=== PATIENT | male | born 1960 | race Caucasian/White ===

== ENCOUNTER 2023-07-17 12:09 | Outpatient (OUT) | payer MEDICARE, SELFPAY ==
--- NOTE | 2023-07-17 | XR_ITS ---
The [address] [address] Patient Name: MICHAEL CHEN MRN: [id number] date: 1960 Sex: M Assigned Patient Location: [facility] Current Patient Location: [facility] Accession/Order Number: [id number] Exam Date: 07/17/2023 12:00 Report Date: 07/17/2023 15:14 At the request of: RICARDO OLIVERA Procedure: XR foot RT min 3V EXAM: XR foot RT min 3V HISTORY: RIGHT FOOT INJURY/ PAIN IN TOES OF RIGHT FOOT COMPARISON: None. TECHNIQUE: 3 views of the right foot FINDINGS: Question findings of talocalcaneal coalition, with small talar beak. No acute fracture or dislocation. Flexion of the second through fourth proximal interphalangeal joint could relate to hammertoe deformity in the appropriate clinical setting. Advanced degenerative change of the first metatarsophalangeal joint. Subcentimeter degenerative calcaneal Achilles enthesophyte. Vascular calcifications are noted. XR/XR foot RT min 3V IMPRESSION: 1. No acute osseous abnormality. 2. Flexion of the second through fourth proximal interphalangeal joints could relate to hammertoe deformity in the appropriate clinical setting. 3. Advanced degenerative change of the first metatarsophalangeal joint. Electronically authenticated by: KAY AGUILAR Date: 07/17/2023 15:14
== END 2023-07-17 12:10 | disposition home or self-care (01) ==
LOC: RAD 12:09
PROVIDERS: Visit Provider Physician Assistant
DX: M79.671 Pain in right foot (principal)
CPT/HCPCS: 73630

== ENCOUNTER 2024-10-01 10:00 | Outpatient (OUT) | payer MEDICARE, SELFPAY ==
--- NOTE | 2024-10-01 10:03 | XR_ITS ---
The [place] [id number] Patient Name: MICHAEL CHEN MRN: [id number] date: 1960 Sex: M Assigned Patient Location: [facility] Current Patient Location: [facility] Accession/Order Number: [id number] Exam Date: 10/01/2024 10:02 Report Date: 10/01/2024 12:00 At the request of: BAM FAY Procedure: XR foot VARGAS min 3V EXAMINATION: XR foot VARGAS min 3V HISTORY: Bilateral Foot Pain COMPARISON: No relevant comparison available. FINDINGS: RIGHT FINDINGS: BONES: No acute fracture or dislocation. Mild to moderate degenerative changes with joint space narrowing marginal osteophyte formation. Moderate to severe osteoarthritis first metatarsal-phalangeal joint SOFT TISSUES: Negative. No visible soft tissue swelling. OTHER: Negative. LEFT FINDINGS: BONES: No acute fracture or dislocation. Mild degenerative changes with marginal osteophyte formation. Moderate hallux valgus with mild to moderate first metatarsal-phalangeal joint osteoarthritis SOFT TISSUES: Negative. No visible soft tissue swelling. OTHER: Negative. 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
== END 2024-10-01 10:01 | disposition home or self-care (01) ==
LOC: RAD 10:00
PROVIDERS: Visit Provider Podiatrist Foot & Ankle Surgery
DX: M79.672 Pain in left foot (principal); M79.671 Pain in right foot; M19.072 Primary osteoarthritis, left ankle and foot; M19.071 Primary osteoarthritis, right ankle and foot; M20.12 Hallux valgus (acquired), left foot
CPT/HCPCS: 73630

== ENCOUNTER 2025-08-05 13:04 | Outpatient (OUT) | payer MEDICARE, SELFPAY ==
--- OUTSIDE RECORDS SUMMARY | 2024-11-17 04:15 | XMS_ITS ---
Author Organization The [facility] in [place] Address [address] [place] [address] Care Team Providers Care Ventilating Equipment Installer Name Role Phone Senthil Caba Primary Care Provider Armando Maxwell Unavailable [phone] REASON FOR VISIT RT 1st MPJ and hammertoe repairs Encounters Encounter Location Date Provider Diagnosis THE [facility] OUTPATIENT [address] [place] [phone] 11/17/2024 Armando Panda Plan Of Treatment No Information Progress Notes * Clem CHEN ADOB:[birth year] (65 yo M)Acc No.[id number]:11/17/2024 UNLOCKED PROGRESS NOTE Patient: Clem ESPOSITO Provider: Lonnie Panda DPM, MS :1960 A ge:64 Y S ex:Male Date:11/17/2024 Address:[address], [facility] Pcp:Senthil Caba * * Electronic signature of Salvador Panda DPM on 08/05/2025 at 01:13 PM EDT Sign off status: Pending Visit Status: C ANC (Cancelled) * Provider: Lonnie Panda DPM, MS Date: 0 11/17/2024 Generated for Zahraa ng/Faxing/eTransmitting on: 1 01:13 PM EDT
--- NOTE | 2025-08-05 13:13 | XR_ITS ---
The [address] [address] Patient Name: MICHAEL CHEN MRN: [id number] date: 1960 Sex: M Assigned Patient Location: [facility] Current Patient Location: Accession/Order Number: [id number] Exam Date: 08/05/2025 13:30 Report Date: 08/06/2025 00:17 At the request of: BAM FAY DPMack Procedure: XR foot VARGAS min 3V XR foot VARGAS min 3V 08/05/2025 1:41 PM SIGNS AND SYMPTOMS: Chronic bilateral foot pain PROTOCOL: Frontal, lateral, and oblique radiographs of the bilateral feet COMPARISON: 10/01/2024 FINDINGS: There is narrowing of the first metatarsophalangeal joint bilaterally, right greater than left similar to the prior exam. There is a healing obliquely aorta fracture of the right fifth metatarsal. There is a hallux valgus deformity of the left great toe which is unchanged. There is plantar and Achilles surface calcaneal spurring bilaterally. No acute displaced fracture. XR/XR foot VARGAS min 3V IMPRESSION: There is narrowing of the first metatarsophalangeal joint bilaterally, right greater than left similar to the prior exam. There is a healing obliquely aorta fracture of the right fifth metatarsal. There is a hallux valgus deformity of the left great toe which is unchanged. Impression dictated by: Shayan Pascual M.D. 08/06/2025 12:17 AM Dictation Location: [facility] Electronically authenticated by: [id number] Y Date: 08/06/2025 00:17
--- OUTSIDE RECORDS SUMMARY | 2025-08-05 13:13 | XMS_ITS | Encounter Summary ---
Author Organization [facility] Address [id number] [address] [place] [address] Care Team Providers Care Adult Education Professional Name Role Phone Senthil Caba PA-C Primary Care Provider [phone] Reason for Visit * Reason Onset Date Comments MR order 03/07/2023 Encounter Details Date Type Department Care Team (Late Contact Info) Description 03/07/2023 [facility]phone [facility] [address] [place] [address] Aicha Ponce MR order Social History Tobacco Use Types Packs/Day Years Used Date Smoking Tobacco: Former Cigarettes Q uit: 10/22/2011 Smokeless Tobacco: Never Alcohol Use Standard Drinks/Week Comments Not Currently 0 (1 standard drink = 0.6 oz pur e alcohol) been 2 weeks since drank AUDIT-C Answer Date Recorded Q1: How often do you have a drink containing alcohol? Never 08/25/2022 Q2: How many drinks containi ng alcohol do you have on a typical day when you are drinking? Patient does not drink Q3: How often do you have si x or more drinks on one occasion? Never 08/25/2022 Overall Financial Resource Strain (CARDIA) Answe r Date Recorded How hard is it for you to pa y for the very basics like food, housing, medical care, and heating? Not hard at all 08/25/2022 PHQ-2 Answer Date Recorded Total Score 10 02/16/2023 [facility] Occupat ional Health - Occupational Stress Questionnaire Answer Date Recorded Do you feel stress - tense, restless, nervous, or anxious, or unable to sleep at night because your mind is troubled all the time - these days? Rather much 08/25/2022 Exercise Vital Sign Answer Date Recorde d On average, how many days pe r week do you engage in moderate to strenuous exercise (like a brisk walk)? 3 days 08/25/2022 On average, how many minutes do you engage in exercise at this level? 20 min 08/25/2022 PRAPARE - Transportation Answer Date Re corded In the past 12 months, has l ack of transportation kept you from medical appointments or from getting medications? No 01/2022 In the past 12 months, has l ack of transportation kept you from meetings, work, or from getting things needed for daily living? No 08/25/2022 Childcare Answer Date Recorded Childcare Unknown 04/02/2019 Employment Answer Date Recorded Do you need help finding a [employer] center and/or a training program? No 08/25/2022 Purpose - Life Answer Date Recorded I have a purpose and direction in my life. Stron gly Agree 08/25/2022 Sex and Gender Information Value Date Recorded Sex Assigned at Not on file Legal Sex Male 11:57 AM EDT Gender Identity Not on file Sexual Orientation Not on file documented as of this encounter Miscellaneous Notes * Telephone Encounter - Aicha Ponce - 03/07/2023 9:35 AM EDT Arina with [facility] is asking for further directions from Dr. Metz. Dr. Metzwas the ordering physician for MR brain with and without contrast from ER visit on 02/02. Arina is confirmed because it was also transcribed from paper. Arina is asking for a return call at [phone], extension number [phone] * Telephone Encounter - Vesna Watson - 03/07/2023 9:35 AM EDT Please advise * Telephone Encounter - Yoana Metz MD - 03/07/2023 9:35 AM EDT Attempted to return call, no answer. documented in this encounter Plan of Treatment Not on file documented as of this encounter Goals Goal Patient Goal Type Associated Problems Recent Progress Patient-Stated? Author Discharge to SNF General Yes Taylor Johnson LISW Note: Evaluation of progress towards goal: Pt/SO plan for discharge to SNF SNF General Yes Carmen Mckeon, RODOLFO Note: Evaluation of progress towards goal: Patient plans to discharge to SNF and then return home with his caregiver. SNF General Yes Raul Morales Note: Evaluation of progress towards goal: [facility] Decrease the likelihood of falling Lifestyle No Kyleigh Griffith, RODOLFO Note: Below are four things you can do to prevent falls: 1. Begin an exercise program to improve your leg strength & balance 2. Ask your doctor or pharmacist to review your medicines 3. Get annual eye check-ups & update your eyeglasses 4. Make your home safer by: Removing clutter & tripping hazards Putting railings on all stairs & adding grab bars in the bathroom Having good lighting, especially on stairs Contact your local community or senior center for information on exercise, fall prevention programs, or options for improving home safety. documented as of this encounter Visit Diagnoses Not on filedocumented in this encounter Additional Health Concerns Infection Onset Date Last Indicated Resolved Time Meningitis Rule-Out 03/15/2023 03/15/2023 03/22/20 23 11:13 PM EDT Assessment Noted Time PHQ-9 Depression Total Score: 10 02/16/ 023 1:25 PM EDT documented as of this encounter Care Teams Adult Education Professional Relationship Specialty Start Date End Date Senthil Caba PA-C [address] [place] [address] PCP - General Physician Inspector Barrel 02/02/23 documented as of this encounter
--- OUTSIDE RECORDS SUMMARY | 2025-08-05 13:13 | XMS_ITS | Patient Health Record ---
Author Organization [facility] Address [address] [place] [id number] Care Team Providers Care Photo Tube Assembler Name Role Phone Marialuisa Cee Primary Care Provider Allergies Allergen (clinical drug ingredient) Drug/Non Drug Allergy documented on EMR Reaction Allergy Type Onset Date Status Penicillin nausea and vomiting Drug Allergy Active Results Component Value Reference Range Notes LIPID PANEL WITH REFLEX TO D IRECT LDL Reviewed date:03/31/2025 12:02:20 PM Interpretation: Performing Lab: Notes/Report: CHOLESTEROL 171 100-199 mg/dL TRIGLYCERIDES 48 20-149 mg/dL VLDL-CHOL, CALCULATED 10 <30 mg/dL HDL-CHOL 58 >=40 mg/dL LDL-CHOL, CALCULATED 103 <130 mg/dL ADULT LDL CHOLESTEROL CLASSIFICATION <100mg/dL Optimal 100-129mg/dL Near/Above Optimal 130-159mg/dL Borderline High >160mg/dL High Risk Desirable range <100 mg/dL for patients with CHD or diabetes and <70 mg/dL for diabetic patients with known heart disease. Direct LDL is recommended for patients with triglycerides >400. LDL/HDL 1.8 <5.0 LDL/HDL RATIO MALE FEMALE below average risk <2.3 <2.3 average risk <5.0 <4.1 moderate risk <7.1 <5.6 high risk >7.1 >5.6 CHOL/HDL 2.9 2.0-4.5 COMPREHENSIVE METABOLIC PANE L WITH GFR Reviewed date:03/31/2025 12:03:07 PM Interpretation: Performing Lab: Notes/Report: GLUCOSE 104 70-100 mg/dL BUN 7 8-23 mg/dL CALCIUM 9.1 8.6-10.5 mg/dL CREATININE, BLOOD 0.67 0.67-1.30 mg/dL eGFR (2020 CKD-EPI) 104 >59 mL/min/1.73m2 SODIUM 145 135-148 mmol/L POTASSIUM 4.6 3.5-5.4 mmol/L CHLORIDE 107 96-107 mmol/L CO2 27 18-32 mmol/L ANION GAP 11 7-16 mmol/L T. BILIRUBIN 0.4 <1.3 mg/dL ALK PHOS 115 39-118 U/L AST-SGOT 19 9-50 U/L ALT-SGPT 19 5-41 U/L T. PROTEIN 7.2 6.0-8.3 g/dL ALBUMIN 4.5 3.5-5.2 g/dL PSA, TOTAL, 3RD GENERATION ( [facility] SCREEN) Reviewed date:03/31/2025 12:02:10 PM Interpretation: Performing Lab: Notes/Report: Method: meevlas ECLIA PSA levels should not be interpreted as absolute evidence of disease, however it is widely accepted as an adjunctive test in the management of prostate cancer patients. Values obtained with different assay methods or kits can not be used interchangeably. A detectable PSA following radical prostatectomy is associated with eventual clinical disease recurrence in some, but not all patients. It may also be due to the presence of benign glands. The AUA defines biochemical recurrence as an initial PSA value >=0.2 ng/ml followed by a subsequent confirmatory PSA value >=0.2 ng/ml. UNLESS OTHERWISE INDICATED, ALL TESTING PERFORMED AT: [employer] [address] [place] [address] GRAPHIC DESIGN MANAGER: SHEILA FAUST M.D. CLIA NUMBER [id number] CAP ACCREDITATION AUID [id number] PSA, TOTAL 0.836 0-4.00 ng/mL Reason For Referral Reason left elbow pain Diagnosis 1 Left elbow pain (M25 .522) Referral Organization Main Referring Provider First Name Marialuisa Referring Provider Last Name Coleman Referring Provider Speciality Nurse Alexandro cui Referred Provider [facility] Referred Provider Specialty Orthopedics General Notes Nisreen Stewart 11:07:32 AM >{{TOFIRSTNAME}} This is [facility] following up on an outstanding referral that was ordered by your provider. Please call our office at , so we can _update our records., Sharee Grajeda 10/10/2024 11:33:31 AM >pt returned call, states no one has called him about this referral. gave pt number for referral, he is going to call them and set an appt, Nisreen Stewart 10/21/2024 09:06:49 AM >No response from patient, closing referral per protocol Referral Priority Routine Medications Medication SIG (Take, Route, Frequency, Duration) Notes Start Date End Date Status lamoTRIgine 25 MG 1 tablet Orally 3 in the morni ng and 3 at night Active Escitalopram Oxalate 20 MG 1 tablet Orally Once a day Active levETIRAcetam 1000 MG 1 tablet Orally Twice a day; Duration: 30 days 1250mg bid total Active Gabapentin 300 MG 1 capsule Orally Twice a day; Duration: 30 days 200 mg in the AM and 200 in the PM 05/30/2024 Active levETIRAcetam 250 MG 1 tablet Orally every 12 hrs; Duration: 30 days 1250mg bid total. take with 1000mg dose Active Metoprolol Tartrate 25 MG 1 tablet with food Orally Twice a day; Duration: 90 days Active Social History Tobacco Use: Social History Observation Description Date Details (start date - stop date) Former Smoker NA - NA Sex Assigned At : Social History Observation Description Sex Assigned At Male Household Question Answer Notes Number of adults in household: 1 Tobacco Use/Smoking Question Answer Notes How long has it been since you last smoked? > 10 years patient entered data When did you start smoking? 10/22/1977 miki atient entered data When did you stop smoking? 10/22/2011 tyrone bertrand entered data Tobacco use: former smoker patient enter ed data CAGE-AID Questionnaire (2018 Edition) Question Answer Notes Have you ever felt that you ought to cut down on your drinking or drug use? No patient entered data Have people annoyed you by c riticizing your drinking or drug use? No patient entered data Have you ever felt bad or gu ilty about your drinking or drug use? No patient entered data Have you ever had a drink or used drugs first thing in the morning to steady your nerves or to get rid of a hangover? No patient entered data CAGE-AID Score 0 Interpretation Negative PRAPARE Question Answer Notes Date Completed/Updated: 03/30/2025 mikie nt entered data What is your current housing situation? I have housing patient entered data Are you worried about losing your housing? No patient entered data What is the highest level of school that you have finished? High school diploma or GED patient entered data What is your current work situation? Otherwise unemployed but not seeking work (ex. student, retired, disabled, unpaid primary adult care manager) patient entered data In the past year, have you o r any family members you live with been unable to get any of the following when it was really needed? Check all that apply I do not have problems meeting my needs Has lack of transportation k ept you from medical appointments, meetings, work or from getting things needed for daily living? No How often do you see or talk to people that you care about and feel close to? (For example: talking to friends on the phone, visiting friends or family, going to [employer] or club meetings) More than 5 times a week patient entered data How stressed are you? Stress is when someone feels tense, nervous, anxious, or can't sleep at night because their mind is troubled A little bit In the past year have you sp ent more than 2 nights in a row in a chcf, intermediate, group home center, or juvenile correctional facility? No Are you a refugee? No patient en tered data What country are you from? [place] tyrone escobarnt entered data Do you feel physically and emotionally safe where you currently live? Yes patient entered data In the past year, have you b een afraid of your partner or ex-partner? No PRAPARE Score: 5 Tobacco Control (Standard) Question Answer Notes Tobacco use: Former smoker How long has it been since you last smoked? Grea ter than 10 years Problems Problem Type SNOMED Code ICD Code Onset Dates Problem Status W/U Status Risk Notes Problem Overweight (210517913) Overweight (E66.3) Active confirmed Problem Essential hypertension (26509862) Essential hypertension (I10) Active confirmed Problem Anxiety (98002162) Anxiety (F41.9) Active confirmed Problem COPD - Chronic obstructive pulmonary disease (31711010) Chronic obstructive pulmonary disease, unspecified COPD type (J44.9) Active confirmed Problem Seizure disorder (288871968) Seizure disorder (G40.909) Active confirmed Problem Neuropathy (014235373) Neuropathy (G62.9) Active confirmed Problem S/P peripheral artery angioplasty with stent placement (Z95.820) Active confirmed Vital Signs Heart Rate 65 /min 03/30/2025 Aster Triplett 03/30/2025 10:36:35 AM EDT > Temperature 98.4 degrees Fahrenheit 03/30/2025 González silvestre Aster 03/30/2025 10:36:35 AM EDT > Respiratory Rate 18 /min 03/30/2025 Tarun Triplett 03/30/2025 10:36:35 AM EDT > Oximetry 100 % 03/30/2025 Aster Triplett 03/30/2025 10:36:35 AM EDT > Blood pressure diastolic 69 mm Hg 03/30/2025 Marija maloney Aster 03/30/2025 10:36:35 AM EDT > Weight-kg 81.65 kg 03/30/2025 Aster Triplett 03/30/2025 10:36:35 AM EDT > Height 70 in 03/30/2025 Uziel Aster 03/30/2025 10:36:35 AM EDT > Blood pressure systolic 104 mm Hg 03/30/2025 González silvestre Aster 03/30/2025 10:36:35 AM EDT > Weight 180.0 lbs 03/30/2025 Uziel Aster 03/30/2025 10:36:35 AM EDT > BMI 25.82 kg/m2 03/30/2025 Aster Triplett 03/30/2025 10:36:35 AM EDT > Encounters Encounter Location Date Provider Diagnosis [facility] [address] [place] [id number] 09/25/2024 Marialuisa Cee Essential hypertensi on I10 ; Left elbow pain M25.522 ; Seizure disorder G40.909 ; Screening for prostate cancer Z12.5 ; Overweight E66.3 and Body mass index [BMI] 28.0-28.9, adult Z68.28 Main [address], [place] [id number] 03/30/2025 Marialuisa Cee Well adult exam Z00. 00 ; Overweight E66.3 ; Body mass index [BMI] 25.0-25.9, adult Z68.25 ; Screening for cardiovascular condition Z13.6 ; Screening for prostate cancer Z12.5 and Screening for colorectal cancer Z12.11 Main [address] [place] [place] [id number] 10/02/2024 Marialuisa Cee Main [address] [place] [place] [id number] 11/11/2024 Marialuisa Cee Main [address] [place] [id number] 03/31/2025 Marialuisa Cee Assessments Encounter Date Diagnosis (ICD Code) Assessment Notes Treatment Notes Treatment Clinical Notes Section Notes 09/25/2024 Essential hypertension (ICD-10 - I10) HTN stable. Will continue current medications. Encouraged healthy diet and exercise. Will order routine blood work. F/u 6 months & PRN 09/25/2024 Left elbow pain (ICD-10 - M25.522) Will make referral to Ortho per pt request for further evaluation 03/30/2025 Overweight (ICD-10 - E66.3) Body Mass Index: Care Instructions material was printed 03/30/2025 Well adult exam (ICD-10 - Z00.00) Patient presents to office today for their Annual Wellness Visit. Education was provided on healthy nutrition, including a diet rich in fruits and vegetables, minimizing simple carbohydrates, salt, and saturated fats. Encouraged regular cardiovascular exercise such as walking at least 30 minutes daily, 5 times per week. Emphasized preventive health measures and educated pt on fall prevention and community-based lifestyle interventions to help reduce health risks and promote healthy living. 03/30/2025 Body mass index [BMI] 25.0-25.9, adult (ICD-10 - Z68.25) 09/25/2024 Seizure disorder (ICD-10 - G40.909) Pt to continue to f/u with Neurology 09/25/2024 Screening for prostate cancer (ICD-10 - Z12.5) 03/30/2025 Screening for cardiovascular condition (ICD-10 - Z13.6) 03/30/2025 Screening for prostate cancer (ICD-10 - Z12.5) 09/25/2024 Overweight (ICD-10 - E66.3) 09/25/2024 Body mass index [BMI] 28.0-28.9, adult (ICD-10 - Z68.28) Body Mass Index: Care Instructions material was printed 03/30/2025 Screening for colorectal cancer (ICD-10 - Z12.11) Plan Of Treatment Next Appt Details Provider Name:Marialuisa Bolaños kalyan, 09/28/2025 11:00:00 AM, [address] [place], [place], [id number], Insurance Providers Payer Name Payer Address Payer Phone Subscriber Number Group Number Insured Name Patient Relationship to Insured Coverage Start Date Coverage End Date [employer] [address] [address] [place] [address] [id number] Clem Triplett Self - patient is the insured 4 [employer] [address] [place], [place] [id number] Clem Triplett Self - patient is the insured 4 Medical (General) History Medical History History ICD Code seizure disorder Essential hypertension I10 Surgical History Surgery Date(Month/Year) herniated disk repair Left knee arthroscopy Stent left iliac Hospitalization History Reason Date(Month/Year) seizures 09/2023 Fell @ home 2013
--- OUTSIDE RECORDS SUMMARY | 2025-08-05 13:13 | XMS_ITS | Encounter Summary ---
Author Organization [facility] [employer] [facility] tem Address [id number] [address] [place] [address] Care Team Providers Care City Manager Name Role Phone Senthil Caba PA-C Primary Care Provider [phone] Encounter Details Date Type Department Care Team (Late st Contact Info) Description 06/27/2022 Telephone [facility] [address] [place] [phone] Pratibha Campbell, RODOLFO Social History Tobacco Use Types Packs/Day Years Used Date Smoking Tobacco: Former Smokeless Tobacco: Never Alcohol Use Standard Drinks/Week Comments Not Currently 0 (1 standard drink = 0.6 oz pur e alcohol) occassionally Childcare Answer Date Recorded Childcare Unknown 04/02/2019 Employment Answer Date Recorded Employment Unknown 04/02/2019 Purpose - Life Answer Date Recorded Purpose and direction in life Unknown Sex and Gender Information Value Date Recorded Sex Assigned at Not on file Legal Sex Male 11:57 AM EDT Gender Identity Not on file Sexual Orientation Not on file COVID-19 Exposure Response Date Recorded In the last month, have you been in contact with someone who was confirmed or suspected to have Coronavirus / COVID-19? No / Unsure 06/28/2022 9:07 AM EDT documented as of this encounter Plan of Treatment Not on file documented as of this encounter Goals Goal Patient Goal Type Associated Problems Recent Progress Patient-Stated? Author Decrease the likelihood of falling Lifestyle No Kyleigh Griffith RN Note: Below are four things you can [...] on stairs Contact your local community or [facility] for information on exercise, fall prevention programs, or options for improving home safety. documented as of this encounter Visit Diagnoses Not on filedocumented in this encounter Additional Health Concerns Infection Onset Date Last Indicated Resolved Time Meningitis Rule-Out 03/15/2023 03/15/2023 03/22/20 11:13 PM EDT documented as of this encounter Care Teams City Manager Relationship Specialty Start Date End Date Senthil Caba PA-C [address] [place] [address] PCP - General Physician Systems Spec 02/02/23 documented as of this encounter
--- OUTSIDE RECORDS SUMMARY | 2025-08-05 13:13 | XMS_ITS | Encounter Summary ---
Author Organization [facility] tem Address [id number] [address] 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 No 08/25/2022 Purpose - Life Answer Date Recorded I have a purpose and direction in my life. Stron gly Agree 08/25/2022 Sex and Gender Information Value Date Recorded Sex Assigned at Not on file Legal Sex Male 11:57 AM EDT Gender Identity Not on file Sexual Orientation Not on file documented as of this encounter Plan of Treatment Not on file documented as of this encounter Goals Goal Patient Goal Type Associated Problems Recent Progress Patient-Stated? Author Discharge to SNF General Yes Taylor Johnson LISW Note: Evaluation of progress towards goal: Pt/SO plan for discharge to SNF SNF General Yes Carmen Mckeon, RN Note: Evaluation of progress towards goal: Patient plans to discharge to SNF and then return home with his caregiver. SNF General Yes Raul Morales Note: Evaluation of progress towards goal: DC to [facility] Decrease the likelihood of falling Lifestyle No Kyleigh Griffith, RN Note: Below are four things you [...] home safety. documented as of this encounter Procedures Procedure Name Priority Date/Time Associated Diagnosis Comments TOTAL PROTEIN ON CSF Routine 03/15/2023 2:33 PM EDT Abnormal finding on MRI of brain UNLISTED LAB TEST Routine 03/15/2023 2:3 3 PM EDT Abnormal finding on MRI of brain GENERIC SEND OUT LAB USE ONLY Routine 03/15/2023 2:33 PM EDT IGG SYNTHESIS CSF AND SERUM Routine 03/15/2023 2:33 PM EDT Abnormal finding on MRI of brain OLIGOCLONAL BANDING CSF & SERUM Routine 03/15/2023 2:33 PM EDT Abnormal finding on MRI of brain GLUCOSE, CSF Routine 03/15/2023 2:33 PM EDT Abnormal finding on MRI of brain documented in this encounter Results * Generic Send Out Lab Use Only (03/15/2023 2:33 PM EDT) Test name ENC2 03/15/2023 8:53 PM EDT [employer] Test result SEE COMMENTS 03/23/2023 09:10 AM 03/23/2023 10:10 AM EDT [facility] Comment: NOTE Test Result Flag Unit RefValue Enceph, Autoimm/Paraneo, CSF Encephalopathy, Interpretation, See Note CSF No informative autoantibodies were detected in this evaluation. However, a negative result does not exclude autoimmune encephalopathy, idiopathic or paraneoplastic. Sensitivity and specificity of antibody testing are enhanced by testing both serum and CSF. IFA Notes None. AMPA-R Ab CBA, CSF Negative Negative ADDITIONAL INFORMATION This test was developed and its performance characteristics determined by [facility] in a manner consistent with CLIA requirements. This test has not been cleared or approved by the U.S. Food and Drug Administration. Amphiphysin Ab, CSF Negative Negative ADDITIONAL INFORMATION This test was developed and its performance characteristics determined by [facility] in a manner consistent with CLIA requirements. This test has not been cleared or approved by the U.S. Food and Drug Administration. AGNA-1, CSF Negative Negative ADDITIONAL INFORMATION This test was developed and its performance characteristics determined by [facility] in a manner consistent with CLIA requirements. This test has not been cleared or approved by the U.S. Food and Drug Administration. REINIER-1, CSF Negative Negative ADDITIONAL INFORMATION This test was developed and its performance characteristics determined by [facility] in a manner consistent with CLIA requirements. This test has not been cleared or approved by the U.S. Food and Drug Administration. REINIER-2, CSF Negative Negative ADDITIONAL INFORMATION This test was developed and its performance characteristics determined by [facility] in a manner consistent with CLIA requirements. This test has not been cleared or approved by the U.S. Food and Drug Administration. REINIER-3, CSF Negative Negative ADDITIONAL INFORMATION This test was developed and its performance characteristics determined by [facility] in a manner consistent with CLIA requirements. This test has not been cleared or approved by the U.S. Food and Drug Administration. CASPR2-IgG CBA, CSF Negative Negative ADDITIONAL INFORMATION This test was developed and its performance characteristics determined by [facility] in a manner consistent with CLIA requirements. This test has not been cleared or approved by the U.S. Food and Drug Administration. CRMP-5-IgG, CSF Negative Negative ADDITIONAL INFORMATION This test was developed and its performance characteristics determined by [facility] in a manner consistent with CLIA requirements. This test has not been cleared or approved by the U.S. Food and Drug Administration. DPPX Ab IFA, CSF Negative Negative ADDITIONAL INFORMATION This test was developed and its performance characteristics determined by [facility] in a manner consistent with CLIA requirements. This test has not been cleared or approved by the U.S. Food and Drug Administration. BLAKE-B-R Ab CBA, CSF Negative Negative ADDITIONAL INFORMATION This test was developed and its performance characteristics determined by [facility] in a manner consistent with CLIA requirements. This test has not been cleared or approved by the U.S. Food and Drug Administration. GAD65 Ab Assay, CSF 0.00 nmol/L <= 0.02 ADDITIONAL INFORMATION This test was developed and its performance characteristics determined by [facility] in a manner consistent with CLIA requirements. This test has not been cleared or approved by the U.S. Food and Drug Administration. GFAP IFA, CSF Negative Negative ADDITIONAL INFORMATION This test was developed and its performance characteristics determined by [facility] in a manner consistent with CLIA requirements. This test has not been cleared or approved by the U.S. Food and Drug Administration. IgLON5 IFA, CSF Negative Negative ADDITIONAL INFORMATION This test was developed and its performance characteristics determined by [facility] in a manner consistent with CLIA requirements. This test has not been cleared or approved by the U.S. Food and Drug Administration. LGI1-IgG CBA, CSF Negative Negative ADDITIONAL INFORMATION This test was developed and its performance characteristics determined by [facility] in a manner consistent with CLIA requirements. This test has not been cleared or approved by the U.S. Food and Drug Administration. mGluR1 Ab IFA, CSF Negative Negative ADDITIONAL INFORMATION This test was developed and its performance characteristics determined by [facility] in a manner consistent with CLIA requirements. This test has not been cleared or approved by the U.S. Food and Drug Administration. Neurochondrin IFA, CSF Negative Negative ADDITIONAL INFORMATION This test was developed and its performance characteristics determined by [facility] in a manner consistent with CLIA requirements. This test has not been cleared or approved by the U.S. Food and Drug Administration. NIF IFA, CSF Negative Negative ADDITIONAL INFORMATION This test was developed and its performance characteristics determined by [facility] in a manner consistent with CLIA requirements. This test has not been cleared or approved by the U.S. Food and Drug Administration. NMDA-R Ab CBA, CSF Negative Negative ADDITIONAL INFORMATION This test was developed and its performance characteristics determined by [facility] in a manner consistent with CLIA requirements. This test has not been cleared or approved by the U.S. Food and Drug Administration. MATTRESS PACKER-Tr, CSF Negative Negative ADDITIONAL INFORMATION This test was developed and its performance characteristics determined by [facility] in a manner consistent with CLIA requirements. This test has not been cleared or approved by the U.S. Food and Drug Administration. MATTRESS PACKER-1, CSF Negative Negative ADDITIONAL INFORMATION This test was developed and its performance characteristics determined by [facility] in a manner consistent with CLIA requirements. This test has not been cleared or approved by the U.S. Food and Drug Administration. MATTRESS PACKER-2, CSF Negative Negative ADDITIONAL INFORMATION This test was developed and its performance characteristics determined by [facility] in a manner consistent with CLIA requirements. This test has not been cleared or approved by the U.S. Food and Drug Administration. Septin-7 IFA, CSF Negative Negative ADDITIONAL INFORMATION This test was developed and its performance characteristics determined by [facility] in a manner consistent with CLIA requirements. This test has not been cleared or approved by the U.S. Food and Drug Administration. Test Performed by: [facility] - [address] [address] Campaign Advisor: Amilcar Wilson M.D. Ph.D.; IA# [id number] MISCELLANEOUS 03/15/2023 2:3 3 PM EDT 03/15/2023 6:01 PM EDT us Yoana Metz MD LAB ORDERABLES Final Resu lt Performing Organization Address [facility] [place] [address] * Unlisted Lab Test(Not for Covid-19 Testing), (03/15/2023 2:33 PM EDT) Unlisted lab test Sent to reference lab 03/15/2023 9:14 PM EDT [facility] MISCELLANEOUS 03/15/2023 2:3 3 PM EDT 03/15/2023 6:01 PM EDT us Yoana Metz MD LAB BLOOD ORDERABLES Final Result Performing Organization Address [facility] Co de Phone Number [facility] * Glucose, CSF (03/15/2023 2:33 PM EDT) Glucose, CSF 67 40 - 70 mg/dL 03/15/2023 3:13 PM EDT [facility] Cerebrospinal fluid / Unknown 03/15/2023 2:33 PM EDT 03/15/2023 2:55 PM EDT us Yoana Metz MD BODY FLUIDS AND STOOLS ORD ERABLES Final Result Performing Organization Address [facility] Co de Phone Number [address] [address] * (ABNORMAL) Csf total protein (03/15/2023 2:33 PM EDT) Protein, CSF 80(H) 15 - 45 mg/dL 03/15/2023 3:21 PM EDT [facility] Cerebrospinal fluid / Unknown 03/15/2023 2:33 PM EDT 03/15/2023 2:55 PM EDT Yoana Metz MD BODY FLUIDS AND STOOLS ORD ERABLES Final Result Performing Organization Address [facility]/ZIP Co de Phone Number [address] [address] * IGG synthesis CSF and serum (03/15/2023 2:33 PM EDT) IGG synthesis See Below 03/16/2023 2:17 PM EDT [facility] Comment: NOTE TEST RESULT FLAG UNIT REF.RANGE Immunoglobulin G, CSF 6.2 H mg/dL 1.0-3.0 Albumin, CSF 25.5 mg/dL 10.0-30.0 IgG/Albumin Ratio 0.24 H 0.06-0.17 ENDOCRINOLOGY NURSE IGG Synthesis 2.4 mg/day 0.0-3.0 IGG Index 0.60 0.00-0.61 Serum IgG 1504 mg/dL 700-1600 Albumin, Serum 3700 L mg/dL [id number] Test Performed By: [facility] [address] [place] [address] Grinding Wheel Inspector: Chavo Nair III, M.D. TIANA #[id number]^ MISCELLANEOUS 03/15/2023 2:3 3 PM EDT 03/15/2023 5:56 PM EDT Yoana Metz MD LAB BLOOD ORDERABLES Final Result Performing Organization Address [facility]/ZIP Co de Phone Number [address] [address] * Oligoclonal Banding CSF & Serum (03/15/2023 2:33 PM EDT) Serum Bands Olig 3 bands 03/21/20 2:23 PM EDT [facility] CSF Bands Olig 3 bands 03/21/2023 2:23 PM EDT [facility] CSF OLIG BANDS INTERP 0 <2 bands 03/21/2023 2:23 PM EDT [facility] Comment: NOTE The oligoclonal band assay detected no unique IgG bands in the CSF. This is a negative result. Test Performed by: [facility] [address] [place] [address] Campaign Advisor: Amilcar Wilson M.D. 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
--- OUTSIDE RECORDS SUMMARY | 2025-08-05 13:13 | XMS_ITS | Encounter Summary ---
Author Organization [facility] [employer] [facility] [place] tem Address [id number] [address] [place] [address] Care Team Providers Care Development Coach Name Role Phone Senthil Caba PA-C Primary Care Provider [phone] Encounter Details Date Type Department Care Team (Late st Contact Info) Description 07/18/2022 Telephone [facility] [address] [place] [phone] Pratibha Campbell, RODOLFO Social History Tobacco Use [...] have Coronavirus / COVID-19? No / Unsure 07/12/2022 9:56 AM EDT documented as of this encounter [...] on stairs Contact your local community or [facility] for information on exercise, fall prevention programs, or options for improving home safety. documented as of this encounter Visit Diagnoses Not on filedocumented in this encounter Additional Health Concerns Infection Onset Date Last Indicated Resolved Time Meningitis Rule-Out 03/15/2023 03/15/2023 03/22/20 11:13 PM EDT documented as of this encounter Care Teams Development Coach Relationship Specialty Start Date End Date Senthil Caba PA-C [address] [place] [address] PCP - General Physician Gravel Inspector 02/02/23 documented as of this encounter
--- OUTSIDE RECORDS SUMMARY | 2025-08-05 13:13 | XMS_ITS | Encounter Summary ---
Author Organization [employer] [facility] tem Address [id number] [address] [place] [address] Care Team Providers Care Newspaper Editor Managing Name Role Phone Senthil Caba PA-C Primary Care Provider [phone] Encounter Details Date Type Department Care Team (Late st Contact Info) Description 08/21/2023 Abstract [facility] - Medical Oncology [address] [place] [address] Jose D Hunter MD [facility] [address] [place] [address] Social History Tobacco Use Types Packs/Day Years Used Date Smoking Tobacco: Former Cigarettes Q uit: 10/22/2011 Smokeless Tobacco: Never Alcohol Use Standard Drinks/Week Comments Not Currently 0 (1 standard drink = 0.6 oz pur e alcohol) 01/2023 AUDIT-C Answer Date Recorded Q1: How often [...] Answer Date Recorded Total Score 10 02/16/2023 [facility] of Occupat ional Health - Occupational Stress [...] Recorded Do you need help finding a [employer] center and/or a training program? No 08/25/2022 Hunger Screening Answer Date Recorded Within the past 12 months we worried whether our food would run out before we got money to buy more. Never True 07/05/2023 Within the past 12 months th e food we bought just didn't last and we didn't have money to get more. Never True 07/05/2023 Purpose - Life Answer Date Recorded I [...] goal: Pt/SO plan for discharge to SNF [facility] General Yes Carmen Mckeon, RN Note: Evaluation of progress towards goal: Patient plans to discharge to SNF and then return home with his caregiver. SNF General Yes Raul Morales Note: Evaluation of progress towards goal: DC to [place] [facility] Decrease the likelihood of falling Lifestyle No [...] on stairs Contact your local community or [facility] for information on exercise, fall prevention programs, or options for improving home safety. documented as of this encounter Procedures Procedure Name Priority Date/Time Associated Diagnosis Comments MULTIPLE LABS Routine 08/15/2023 documented in this encounter Results * Multiple labs (08/15/2023) 08/15/2023 us Not In System Ref Prov [facility] Final Res ult documented in this encounter Visit Diagnoses Not on filedocumented in this encounter Additional Health Concerns Assessment Noted Time PHQ-9 Depression Total Score: 10 02/16/ 023 1:25 PM EDT documented as of this encounter Care Teams Newspaper Editor Managing Relationship Specialty Start Date End Date Senthil Caba PA-C [address] [place] [address] PCP - General Physician Frame Table Operator Helper 02/02/23 documented as of this encounter
--- OUTSIDE RECORDS SUMMARY | 2025-08-05 13:13 | XMS_ITS | Encounter Summary ---
Author Organization [facility] Address [address] [facility] [place] [address] Care Team Providers Care Licensed Practical Vocational Nurse Name Role Phone Senthil Caba Unavailable Marialuisa Cee MD Unavailable [phone] Clem Martinez MD Primary Care Provider Anila Victoria Unavailable Encounter Details Date Type Department Care Team (Late st Contact Info) Description 07/24/2023 Abstract [facility] [address] [facility] [address] [place] [address] Beka Johnson MD [address] [facility] [address] [place] [address] Social History Tobacco Use Types Packs/Day Years Used Date Smoking Tobacco: Former Cigarettes Alcohol Use Standard Drinks/Week Comments Not Currently 0 (1 standard drink = 0.6 oz pure alcohol) caffeine intake: more than 4 cups per day. Sex and Gender Information Value Date Recorded Sex Assigned at Not on file Legal Sex Male 7:05 PM EDT Gender Identity Not on file Sexual Orientation Not on file documented as of this encounter Plan of Treatment Not on file documented as of this encounter Visit Diagnoses Not on filedocumented in this encounter Care Teams Licensed Practical Vocational Nurse Relationship Specialty Start Date End Date Clem Martinez MD [address] [facility] [place], [place] [id number] PCP - General Family Medicine 09/11/24 Senthil Caba PA [address] [place] [address] Referring Physician Physical Medicine and Rehabilitation 07/02/23 Marialuisa Cee MD [address] [place] [address] Referring Physician Family Medicine 08/13/24 Anila Victoria PA [address] [place] [address] Physician Director [facility] 02/09/25 documented as of this encounter
--- OUTSIDE RECORDS SUMMARY | 2025-08-05 13:13 | XMS_ITS | Encounter Summary ---
Author Organization [facility] [employer] [facility] tem Address [id number] [address] [place] [address] Care Team Providers Care Nut And Bolt Assembler Name Role Phone Senthil Caba PA-C Primary Care Provider [phone] Encounter Details Date Type Department Care Team (Late st Contact Info) Description 06/20/2022 Telephone [facility] [address] [place] [phone] Pratibha Campbell, RODOLFO Social History Tobacco Use [...] or suspected to have Coronavirus / COVID-19? Unable to assess 05/24/2022 10:11 AM EDT documented as of this encounter Plan of Treatment Not on file documented as of this encounter Goals Goal Patient Goal Type Associated Problems Recent Progress Patient-Stated? Author Decrease the likelihood of falling Lifestyle Kyleigh Pineda RN Note: Below are four things you [...] on stairs Contact your local community or [facility] for information on exercise, fall prevention programs, or options for improving home safety. documented as of this encounter Visit Diagnoses Not on filedocumented in this encounter Additional Health Concerns Infection Onset Date Last Indicated Resolved Time Meningitis Rule-Out 03/15/2023 03/15/2023 03/22/20 11:13 PM EDT documented as of this encounter Care Teams Nut And Bolt Assembler Relationship Specialty Start Date End Date Senthil Caba PA-C [address] [place] [address] PCP - General Physician Bear Keeper 02/02/23 documented as of this encounter
--- OUTSIDE RECORDS SUMMARY | 2025-08-05 13:13 | XMS_ITS | Clinical Summary ---
Author Organization [facility] Address [address] [place] [address] Care Team Providers Care Carpet Installation Specialist Name Role Phone Unavailable Primary Care Provider Unavailabl e Social History Tobacco Use Types Packs/Day Years Used Date Smoking Tobacco: Never Assessed [place] Safety & Environment Answer Date Rec orded Fear of Current or Ex-Partner Not on file Emotionally Abused Not on file 12/13/2023 Physically Abused Not on file 12/13/2023 Sexually Abused Not on file 12/13/2023 Physically or Sexually Abused Not on file Sex and Gender Information Value Date Recorded Sex Assigned at Not on file Legal Sex Male 10:12 PM EDT Gender Identity Not on file Sexual Orientation Not on file Last Filed Vital Signs Vital Sign Reading Time Taken Comments Blood Pressure 119/75 02/16/2021 2:08 PM EDT Pulse 88 02/16/2021 2:08 PM EDT Temperature - - Respiratory Rate - - Oxygen Saturation 97% 02/16/2021 2:08 PM EDT Inhaled Oxygen Concentration - - Weight 97.5 kg (215 lb) 02/16/2021 2:05 PM EDT Height 175.3 cm (5' 9 ) 02/16/2021 2:05 PM EDT Body Mass Index 31.75 02/16/2021 2:05 PM EDT Plan of Treatment Not on file
--- OUTSIDE RECORDS SUMMARY | 2025-08-05 13:13 | XMS_ITS | Encounter Summary ---
Author Organization [facility] [employer] [facility] tem Address [id number] [address] [place] [address] Care Team Providers Care Talent Management Manager Name Role Phone Senthil Caba PA-C Primary Care Provider [phone] Encounter Details Date Type Department Care Team (Late st Contact Info) Description 06/13/2022 Telephone [facility] [address] [place] [phone] Pratibha Campbell, RODOLFO Social History Tobacco Use [...] on stairs Contact your local community or [facility] for information on exercise, fall prevention programs, or options for improving home safety. documented as of this encounter Visit Diagnoses Not on filedocumented in this encounter Additional Health Concerns Infection Onset Date Last Indicated Resolved Time Meningitis Rule-Out 03/15/2023 03/15/2023 03/22/20 11:13 PM EDT documented as of this encounter Care Teams Talent Management Manager Relationship Specialty Start Date End Date Senthil Caba PA-C [address] [place] [address] PCP - General Physician Washing Tub Operator 02/02/23 documented as of this encounter
--- OUTSIDE RECORDS SUMMARY | 2025-08-05 13:13 | XMS_ITS | Patient Health Record ---
Author Organization [facility] Address [address] [place] [address] Care Team Providers Care Digital Press Operator Name Role Phone Senthil Caba Primary Care Provider Bam [facility] [phone] Allergies Allergen (clinical drug ingredient) Drug/Non Drug Allergy documented on EMR Reaction Allergy Type Onset Date Status Penicillin Unknown Drug Allergy Active Results Component Value Reference Range Notes XR Foot RT (3 views) * Reviewed date:10/20/2024 01:15:14 PM Interpretation: Performing Lab: Notes/Report: XR foot VARGAS min 3V (Not yet reviewed by provider) Interpretation: Performing Lab: Notes/Report: Source Facility: [place] [address] XRay Report Signed Patient: Michael Chen MR#: [id number] : 1960 Acct:[id number] Age/Sex: 64 / M ADM Date: 10/01/24 Loc: RAD Attending Dr: Bam Panda D.P.M. Ordering Physician: Bam Panda D.P.M. Date of Service: 10/01/24 Procedure(s): XR foot VARGAS min 3V Accession Number(s): [id number] cc: Bam Panda D.P.M.; Physician,Non-Staff Julio Cesar The [place] [address] Patient Name: MICHAEL CHEN MRN: [id number] date: 1960 Sex: M Assigned Patient Location: RAD Current Patient Location: RAD Accession/Order Number: [id number] Exam Date: 10/01/2024 10:02 Report Date: 10/01/2024 12:00 At the request of: BAM PANDA Procedure: XR foot VARGAS min 3V EXAMINATION: XR foot VARGAS min 3V HISTORY: Bilateral Foot Pain COMPARISON: No relevant comparison available. FINDINGS: RIGHT FINDINGS: BONES: No acute fracture or dislocation. Mild to moderate degenerative changes with joint space narrowing marginal osteophyte formation. Moderate to severe osteoarthritis first metatarsal-phalangeal joint SOFT TISSUES: Negative. No visible soft tissue swelling. OTHER: Negative. LEFT FINDINGS: BONES: No acute fracture or dislocation. Mild degenerative changes with marginal osteophyte formation. Moderate hallux valgus with mild to moderate first metatarsal-phalangeal joint osteoarthritis SOFT TISSUES: Negative. No visible soft tissue swelling. OTHER: Negative. 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 Signed By: 10/01/24 1203 DD/ 1200 TD/TT: Medicaid Eligibility Specialist: Reason For Referral No Information Medications Medication SIG (Take, Route, Frequency, Duration) Notes Start Date End Date Status DULoxetine HCl Activ e traZODone HCl 50 MG 1 tablet at bedtime as needed Orally Once a day Active Calcium Carbonate 600 MG 1 tablet with f ood Orally Twice a day Active Ondansetron Active Furosemide Active Tylenol Active Iron (Ferrous Sulfate) Active Vitamin B12 1000 MCG 1 tablet Orally Onc e a day Active levETIRAcetam 250 MG 1 tablet Orally slick ry 12 hrs Active Vitamin D3 50 MCG (2000 UT) 1 capsule Or ally Once a day Active levETIRAcetam 1000 MG 1 tablet on the to ngue and allow to dissolve Orally Twice a day Active Gabapentin 100 MG Oral; Duration: 90 Days Active Magnesium Oxide 400 MG 1 tablet as neede d Orally Once a day Active Metoprolol Tartrate 25 MG 1 tablet with food Orally Twice a day Active [place] 3 Active Omeprazole Active Social History Tobacco Use: Social History Observation Description Date Details (start date - stop date) Former Smoker NA - 07/05/2012 Tobacco Use/Smoking Question Answer Notes Patient is a former smoker When did you stop smoking? 07/05/2012 Alcohol Screen (Audit-C) Question Answer Notes Did you have a drink containing alcohol in the p ast year? No Points 0 Interpretation Negative Problems Problem Type SNOMED Code ICD Code Onset Dates Problem Status W/U Status Risk Notes Problem Peripheral vascular disease (773905614) Peripheral vascular disease, unspecified (I73.9) Active confirmed Problem Acquired hallux valgus (81138318) Hallux valgus (acquired), left foot (M20.12) Active confirmed Problem Acquired hallux rigidus (9597315) Hallux rigidus, right foot (M20.21) Active confirmed Problem Acquired hammer toe of right foot (989110995848229 5) Other hammer toe(s) (acquired), right foot (M20.41) Active confirmed Problem Pain in right foot (859273403870905 ) Right foot pain (M79.671) Active confirmed Problem Pain in left foot (045757172676121 ) Left foot pain (M79.672) Active confirmed Problem Secondary hypertension (50305999) Hypertension, secondary (I15.9) Active confirmed Vital Signs Heart Rate 72 /min 10/01/2024 Temperature 98 degrees Fahrenheit 10/01/2024 Oximetry 98 % 10/01/2024 Height 71 in 10/01/2024 Weight 221 lbs 10/01/2024 BMI 30.82 kg/m2 10/01/2024 Procedures Procedure Date Ordered Date Performed Result Body Sit e DELIA Segmental Pressure Study of Lower Extremity 10/01/2024 N/A Encounters Encounter Location Date Provider Diagnosis [facility] [address] [place] [address] [place] [address] 02/16/2025 Bam Panda [facility] [address] [place] [address] [place] [address] 10/01/2024 Bam Panda Hallux rigidus, right foot M20.21 ; Other hammer toe(s) (acquired), right foot M20.41 ; Other deformities of toe(s) (acquired), right foot M20.5X1 ; Right foot pain M79.671 ; Hallux valgus (acquired), left foot M20.12 ; Left foot pain M79.672 and Peripheral vascular disease, unspecified I73.9 Assessments Encounter Date Diagnosis (ICD Code) Assessment Notes Treatment Notes Treatment Clinical Notes Section Notes 10/01/2024 Hallux rigidus, right foot (ICD-10 - M20.21) Patient was seen and evaluated. Patient's condition was provided and all questions were answered to satisfaction. I reviewed x-rays and physical exam findings. Pain and dysfunction has affected patient's daily life and although he does have back and knee pain as well he is able to only walk a few steps secondary to pain therefore for longer distances he uses a motorized scooter. Patient quit smoking 12 years ago and does have a history of a stent in his left leg. He previously was on Plavix which was discontinued by his PCP roughly a year ago. Patient would like to undergo reconstructive surgery and I recommended: Right first metatarsal phalangeal joint fusion with correction of lesser toe deformities, bone graft and soft tissue balancing as needed I reviewed the possible complications which include but not limited to infection, wound healing issue, numbness and tingling, bleeding, blood clot, pain, need for additional surgery.Other possible complications include malunion, nonunion, delayed union and painful hardware. I discussed that he is at notably high risk for wound given his smoking history therefore I recommended noninvasive vascular studies prior to surgery as part of the preoperative clearance. It is likely that at minimum he has small vessel disease and due to these very rigid severe lesser toe contractures and is at high risk for toe loss following surgery Postoperative course was reviewed and the patient will likely be: Nonweightbearing for 1 week followed by partial protected weightbearing for an additional 6 to 8 weeks Patient will be: outpatient postoperatively Proposed anesthesia: General And regional Proposed implants: Medline Patient may require pinning with K wires for his lesser toe contractures given their severity 10/01/2024 Other hammer toe(s) (acquired), right foot (ICD-10 - M20.41) 10/01/2024 Other deformities of toe(s) (acquired), right foot (ICD-10 - M20.5X1) 10/01/2024 Right foot pain (ICD-10 - M79.671) 10/01/2024 Hallux valgus (acquired), left foot (ICD-10 - M20.12) 10/01/2024 Left foot pain (ICD-10 - M79.672) 10/01/2024 Peripheral vascular disease, unspecified (ICD-10 - I73.9) Plan Of Treatment Pending Test Test Name Order Date XR Foot LT (3 views) * 10/01/2024 XR foot VARGAS min 3V 10/01/2024 DELIA Segmental Pressure Study of Lower Ex tremity 10/01/2024 Insurance Providers Payer Name Payer Address Payer Phone Subscriber Number Group Number Insured Name Patient Relationship to Insured Coverage Start Date Coverage End Date [employer] ADV PLAN [address] [address] [place] [address] [phone] [id number] Michael Chen Self - patient is the insured Medical (General) History Medical History History ICD Code Hepatic encephalopathy K76.82 Seizures Abnormal finding on right foot Arthritis Surgical History Surgery Date(Month/Year) Left knee x2 Dr. Espino
--- OUTSIDE RECORDS SUMMARY | 2025-08-05 13:13 | XMS_ITS | Encounter Summary ---
Author Organization [facility] Address [address] [facility] [place] [address] Care Team Providers Care Spray Blender Name Role Phone Senthil Caba Unavailable Marialuisa Cee MD Unavailable [phone] Clem Martinez MD Primary Care Provider [phone] Anila Victoria Unavailable Encounter Details Date Type Department Care Team (Late st Contact Info) Description 07/02/2023 Abstract [facility] [address] [place] [id number] Fidel Negrete, OSMAR [address] [facility] [place] [phone] Social History Tobacco Use Types Packs/Day Years Used Date Smoking Tobacco: Former Cigarettes Tobacco Cessation:Counseling Given: Not Answered Alcohol Use Standard Drinks/Week Comments Not Currently [...] on filedocumented in this encounter Care Teams Spray Blender Relationship Specialty Start Date End Date Clem Martinez MD [facility] [place], [place] [phone] PCP - General Family Medicine 09/11/24 Senthil Caba PA [address] [place] [address] Referring Physician Physical Medicine and Rehabilitation 07/02/23 Marialuisa Cee MD [address] [place] [address] Referring Physician Family Medicine 08/13/24 Anila Victoria PA [address] [place] [address] Physician Stone Trimmer Neurology 02/09/25 documented as of this encounter
--- OUTSIDE RECORDS SUMMARY | 2025-08-05 13:13 | XMS_ITS | Encounter Summary ---
Author Organization [facility] [employer] [facility] tem Address [id number] [address] [place] [address] Care Team Providers Care Windows Systems Engineer Name Role Phone Senthil Caba PA-C Primary Care Provider [phone] Encounter Details Date Type Department Care Team (Late st Contact Info) Description 07/11/[address] [facility] [address] [place] [phone] Pratibha Campbell, RODOLFO Social History Tobacco Use [...] on stairs Contact your local community or [facility] for information on exercise, fall prevention programs, or options for improving home safety. documented as of this encounter Visit Diagnoses Not on filedocumented in this encounter Additional Health Concerns Infection Onset Date Last Indicated Resolved Time Meningitis Rule-Out 03/15/2023 03/15/2023 03/22/20 11:13 PM EDT documented as of this encounter Care Teams Windows Systems Engineer Relationship Specialty Start Date End Date Senthil Caba PA-C [address] [place] [address] PCP - General Physician Casket Coverer 02/02/23 documented as of this encounter
--- OUTSIDE RECORDS SUMMARY | 2025-08-05 13:14 | XMS_ITS | Clinical Summary ---
Author Organization [facility] Address [id number] [address] [place] [address] Care Team Providers Care Billing Associate Name Role Phone Senthil Caba PA-C Primary Care Provider Allergies Active Allergy Reactions Criticality Noted Date Comments Latex Rash Low 08/25/2022 Nickel Other (See Comments) 08/25/2022 Penicillins Rash Low 07/27/2018 Medications clopidogreL (PLAVIX) 75 mg tablet Take 1 tablet (75 mg total) by mouth in the morning. Active thiamine HCl (vitamin B-1) 100 mg tablet Take 1 tablet (100 mg total) by mouth in the morning. Active cyanocobalamin (vitamin B-12) 1000 MCG tablet Take 1 tablet (1,000 mcg total) by mouth in the morning. Active CALCIUM CARBONATE-VITAMI N D3 ORAL Take 1 capsule by mouth in the morning. 1200mg-25mcg . Active DULoxetine (CYMBALTA) 60 mg capsule Take 1 capsule (60 mg total) by mouth in the morning. Active gabapentin (NEURONTIN) 400 mg capsuleIndicatio ns:Polyneuropath y, unspecified Take 1 capsule (400 mg total) by mouth in the morning and 1 capsule (400 mg total) before bedtime. 10 capsule 02/26/2023 Active levETIRAcetam (KEPPRA) 250 mg tablet Take 5 tablets (1,250 mg total) by mouth in the morning and 5 tablets (1,250 mg total) before bedtime. 60 tablet 02/26/2023 Active metoprolol tartrate (LOPRESSOR) 25 mg tablet Take 1 tablet (25 mg total) by mouth in the morning and 1 tablet (25 mg total) before bedtime. 60 tablet 02/26/2023 Active folic acid (FOLVITE) 1 mg tablet Take 1 tablet (1 mg total) by mouth in the morning. 30 tablet 02/26/2023 Active magnesium oxide (MAGOX) 400 mg tablet Take 1 tablet (400 mg total) by mouth in the morning and 1 tablet (400 mg total) before bedtime. 60 tablet 02/26/2023 Active Active Problems Problem Noted Date Diagnosed Date Bandemia 10/04/2023 Thrombocythemia 10/04/2023 Alcohol withdrawal 02/03/2023 Acute respiratory failure with hypoxia Acute hypoxemic respiratory failure 12/03/2022 Psoriasis 08/28/2022 Intertriginous dermatitis associated with moistu re 08/28/2022 Severe malnutrition 08/28/2022 Hyponatremia 08/26/2022 Cellulitis of right upper extremity 08/26/2022 UTI (urinary tract infection) 08/25/2022 Gastroesophageal reflux disease without esophagi tis 08/25/2022 Skin sloughing 06/28/2022 Pancytopenia 02/18/2021 Incontinence associated dermatitis 01/10/2021 Generalized weakness 01/09/2021 Failure to thrive in adult 01/08/2021 Radiculopathy, lumbar region 05/05/2020 Polyneuropathy, unspecified 05/02/2020 Intracranial bleed 07/06/2019 Status epilepticus Hypokalemia Immunizations Immunization Administration Dates Next Due PPD Test 08/30/2022 Tdap 07/05/2019(Deferred: - Pt states had one 2 years ago when he was bitten by his dog and had a laceration repair done.),09/04/2014 Family History Medical History Relation Name Comments Alcohol abuse Father Cancer Father throat Lung cancer Father Heart disease Mother Heart failure Mother Relation Name Status Comments Father Mother Social History Tobacco Use Types Packs/Day Years Used Date Smoking Tobacco: Former Cigarettes Q uit: 10/22/2011 Smokeless Tobacco: Never Tobacco Cessation:Counseling Given: Not Answered Alcohol Use [...] Answer Date Recorded Total Score 10 02/16/2023 [facility] - Occupational Stress [...] Recorded Do you need help finding a [facility] career center and/or a training program? No 08/25/2022 [...] Sign Reading Time Taken Comments Blood Pressure 130/85 10/04/2023 11:25 AM EST Pulse 92 10/04/2023 11:25 AM EST Temperature 36.6 C (97.8 F) 10/04/2023 11:25 AM EST Respiratory Rate 24 10/04/2023 11:2 5 AM EST Oxygen Saturation 98% 10/04/2023 11: 25 AM EST Inhaled Oxygen Concentration - - Weight 100.9 kg (222 lb 6.4 oz) 023 11:25 AM EST Height 177.8 cm (5' 10 ) 10/04/2023 11: 25 AM EST Body Mass Index 31.91 10/04/2023 11:25 AM EST Plan of Treatment Health Maintenance Due Date Last Done Comments Tobacco Screening 1973 Zoster (Shingles) Vaccine (1 of 2) 2011 Depression Screening 02/17/2024 02/16/2023 DTaP,Tdap and Td Vaccines (2 - Td or Tdap) 09/04/2024 09/04/2014 Adult BMI Screening 10/04/2024 10/04/2023 COVID-19 Vaccine (4 - 2024-2 6 season) 2025 01/08/2022, 03/23/2021, 02/23/2021 Influenza Vaccine 06/22/2025 Goals Goal Patient Goal Type Associated Problems Recent Progress Patient-Stated? Author Discharge to SNF General Yes Taylor Johnson LISW Note: Evaluation of progress towards goal: Pt/SO plan for discharge to [facility] General Yes Carmen Mckeon, RODOLFO Note: Evaluation of progress towards goal: Patient plans to discharge to SNF and then return home with his caregiver. SNF General Yes Raul Morales Note: Evaluation of progress towards goal: DC to [facility] Decrease the likelihood of falling Lifestyle No [...] programs, or options for improving home safety. Medical Devices Not on file Insurance [employer] Advance Directives * Full Code (Latest Code Status on File) Date Activated Date Inactivated Comments 02/02/2023 11:21 PM 02/26/2023 5:10 PM * Full Code Date Activated Date Inactivated Comments 12/03/2022 2:16 AM 12/08/2022 8:33 PM * Full Code Date Activated Date Inactivated Comments 08/25/2022 8:32 PM 08/31/2022 12:22 AM * Full Code Date Activated Date Inactivated Comments 08/25/2022 1:46 PM 08/25/2022 8:12 PM * Full Code Date Activated Date Inactivated Comments 01/09/2021 12:44 AM 01/20/2021 6:38 PM Care Teams Billing Associate Relationship Specialty Start Date End Date Senthil Caba PA-C [address] [place] [address] PCP - General Physician Underground Mine Machinery Mechanic 02/02/23
--- OUTSIDE RECORDS SUMMARY | 2025-08-05 13:14 | XMS_ITS | Clinical Summary ---
Author Organization [facility] Address [address] [place] [address] Phone Care Team Providers Care Pipe Chipper Name Role Phone Unavailable Primary Care Provider Unavailabl e Social History Tobacco Use Types Packs/Day Years Used Date Smoking Tobacco: Never Assessed Sex and Gender Information Value Date Recorded Sex Assigned at Not on file Legal Sex Male 7:23 PM EST Gender Identity Not on file Sexual Orientation Not on file Plan of Treatment Not on file
--- OUTSIDE RECORDS SUMMARY | 2025-08-05 13:14 | XMS_ITS | CCD ---
Author Organization [facility] Team Providers Care Supervisor Type Disk Quality Control Name Role Phone ETELVINA WRIGHT Admitting Unavailable ETELVINA WRIGHT Attending Unavailable ETELVINA WRIGHT Consulting Unavailable PROVIDER, UNKNOWN Attending Unavailable PROVIDER, UNKNOWN Admitting Unavailable GIORGIO DUBOIS Consulting Unavailable LACHELLE CABA Primary Care Unavailable BERKLEY GARZA Attending Unavailable BERKLEY GARZA Admitting Unavailable Lachelle Ngo Unavailable Marialuisa Cee MD Unavailable Michael Martinez MD Primary Care Provider Karen Goldman Unavailable KAREN VICTORIA Attending Unavailable YUKO, KAREN Attending Unavailable YUKO, KAREN Attending Unavailable YUKO, KAREN Attending Unavailable YUKO, KAREN Referring Unavailable IVANE, KAREN Attending Unavailable YUKO, KAREN Attending Unavailable ETHAN BAEZA Attending Unavailable Allergies Allergy Classification Reported Allergen(s) Allergy Type Date of Onset Reaction(s) Facility (19 sources) Latex Propensity to adverse reactions 08-25-20 22 Other, Rash [facility] (19 sources) nickel sulfate Drug Allergy 08-25-20 22 Unknown [facility] Healthcare (19 sources) Penicillins Drug Intolerance 07-27-20 18 GI intolerance, Rash, Unknown [facility] Healthcare (19 sources) Sulfanilamide Allergy to substance 07-02-20 23 Unknown [facility] Medications Current Medications Medication Drug Class(es) Dates Sig (Normalized) Sig (Original) Calcium (19 sources) Phosphate Binder, Calcium calcium 200 MG tablet Calcium Active Calcium Carbonate Antacid (CALCIUM CARBONATE PO) (19 sources) take 1 capsule by mouth in the morning Calcium Carbonate Antacid (CALCIUM CARBONATE PO) Take 1 capsule by mouth in the morning. Active clopidogrel 75 mg oral tablet (19 sources) P2Y12 Platelet Inhibitor clopidogrel (Plavix) 75 MG tablet 1 (one) time each day at the same time. Active escitalopram 10 mg oral tablet (2 sources) Serotonin Reuptake Inhibitor Start: 02-09-2025 End: 05-10-2025 take 1 tablet by mouth once daily escitalopram (Lexapro) 10 MG tablet Indications: Anxiety and depression (CMS/HCC) Take 1 tablet (10 mg) by mouth Daily 30 tablet 2 02/09/2025 05/10/2025 Active famotidine 40 mg oral tablet (19 sources) Histamine-2 Receptor Antagonist take 1 tablet by mouth at bedtime famotidine (Pepcid) 40 MG tablet take 1 tablet by mouth at bedtime Oral for 90 Active Fish Oils (19 sources) omega-3 (FISH OI L) 300 MG capsule Fish Oil Active gabapentin 100 mg oral capsule (20 sources) Anti-epileptic Agent Start: 09-23-2024 End: 04-08-2025 take 2 capsules by mouth in the morning gabapentin (Neurontin) 100 MG capsule Indications: Polyneuropathy Take 2 capsules (200 mg) by mouth in the morning and 2 capsules (200 mg) before bedtime. Due 03/29/25. 360 capsule 1 01/08/2025 04/08/2025 Active Start: 06-24-2024 End: 08-23-2024 take 2 capsules by mouth in the morning gabapentin (Neurontin) 100 MG capsule Indications: Polyneuropathy Take 2 capsules (200 mg) by mouth in the morning and 2 capsules (200 mg) before bedtime. Due 07/08/24. 120 capsule 1 07/24/2024 Active Start: 06-18-2024 End: 06-24-2024 take 1 tablet by mouth once daily in the morning, then take 2 tablets by mouth once daily at bedtime gabapentin (Neurontin) 100 MG capsule Indications: Polyneuropathy , Lumbosacral radiculopathy 1 tab PO QAM And 2 tabs PO QHS 90 capsule 1 06/18/2024 06/24/2024 Discontinued (Reorder) Start: 06-30-2023 End: 06-18-2024 take 1 capsule by mouth at bedtime gabapentin (Neurontin) 300 MG capsule Take 300 mg by mouth at bedtime. 06/30/2023 06/18/2024 Discontinued (Reorder) lamoTRIgine 25 mg oral tablet (18 sources) Mood Stabilizer, Anti-epileptic Agent Start: 09-17-2024 End: 01-08-2025 take 3 tablets by mouth twice daily lamoTRIgine (LaMICtal) 25 MG tablet Indications: Seizure (CMS/HCC) 3 tabs PO BID 540 tablet 1 01/08/2025 Active Start: 07-24-2024 End: 09-17-2024 take 1 tablet by mouth twice daily in the morning, then take 1 tablet by mouth once daily in the morning, then take 2 tablets by mouth at bedtime, then take 2 tablets by mouth twice daily lamoTRIgine (LaMICtal) 25 MG tablet Indications: Seizure (CMS/HCC) Take 1 tablet (25 mg) by mouth in the morning and 1 tablet (25 mg) before bedtime. 25mg PO daily for 7 days, then 25mg PO BID for 7 days, then 1 tab PO QAM and 2 tabs PO at bedtime for 7 days, then 2 tabs PO BID thereafter. 120 tablet 2 07/24/2024 09/17/2024 Discontinued (Reorder) levETIRAcetam 250 mg oral tablet (20 sources) Start: 07-24-2024 End: 04-08-2025 take 1 tablet by mouth twice daily in the morning levETIRAcetam (Keppra) 250 MG tablet Indications: Seizure (CMS/HCC) Take 1 tablet (250 mg) by mouth in the morning and 1 tablet (250 mg) before bedtime. In addition to 1000mg BID. 180 tablet 2 01/08/2025 04/08/2025 Active Start: 07-24-2024 End: 04-08-2025 take 1 tablet by mouth in the morning levETIRAcetam (Keppra) 1000 MG tablet Indications: Seizure (CMS/HCC) Take 1 tablet (1,000 mg) by mouth in the morning and 1 tablet (1,000 mg) before bedtime. 180 tablet 2 01/08/2025 04/08/2025 Active Start: 02-26-2023 End: 07-24-2024 take 5 tablets by mouth in the morning levETIRAcetam (Keppra) 250 MG tablet Take 1,250 mg by mouth in the morning and 1,250 mg in the evening. 02/26/2023 07/24/2024 Discontinued (Reorder) metoprolol tartrate 25 mg oral tablet (20 sources) beta-Adrenergic Rosa Start: 09-25-2024 take 1 tablet by mouth in the morning metoprolol tartrate (Lopressor) 25 MG tablet Take 25 mg by mouth in the morning and 25 mg before bedtime. 09/25/2024 Active metoprolol succi lakshmi XL (Toprol-XL) 25 MG 24 hr tablet 1 (one) time each day at the same time. Active tiZANidine 4 mg oral tablet (19 sources) Central alpha-2 Adrenergic Agonist Start: 06-18-2023 tiZANidine (Zanaflex) 4 MG tablet every 12 (twelve) hours. 06/18/2023 Active traZODone hydrochloride 50 mg oral tablet (19 sources) Serotonin Reuptake Inhibitor traZODone (Desyrel) 50 MG tablet 1 (one) time each day at the same time. Active vitamin b12 1 mg oral tablet (19 sources) Vitamin B12 take 1 tablet by mouth in the morning cyanocobalamin (Vitamin B-12) 1000 MCG tablet Take 1,000 mcg by mouth in the morning. Active Problems Active Problems Problem Classification Problem Date Documented Date Episodic/Chronic Anxiety disorders (2 sources) Mixed anxiety and depressive disorder; Translations: [Anxiety disorder, unspecified] 02-09-2025 Chronic Conditions associated with dizziness or vertigo (4 sources) Dizziness; Translations: [Dizziness and giddiness] 12-04-2024 Episodic Epilepsy; convulsions (17 sources) Localization-related (focal) (partial) symptomatic epilepsy and epileptic syndromes with complex partial seizures, not intractable, with status epilepticus; Translations: [Epilepsy, unspecified, intractable, without status epilepticus] Onset: 09-18-2023 07-21-2024 Chronic Epilepsy; convulsions (20 sources) Unspecified convulsions; Translations: [Seizure] Onset: 09-17-2023 07-21-2024 Episodic Essential hypertension (4 sources) Essential (primary) hypertension; Translations: [ESSENTIAL PRIMARY HYPERTENSION] Onset: 09-04-2022 Chronic Other connective tissue disease (2 sources) Lateral epicondylitis of left humerus; Translations: [Lateral epicondylitis, left elbow] 10-23-2024 Episodic Other nervous system disorders (20 sources) Polyneuropathy; Translations: [Polyneuropathy, unspecified] Onset: 07-21-2024 07-21-2024 Chronic Other nervous system disorders (20 sources) Sensory ataxia ; Translations: [Other lack of coordination] Onset: 07-21-2024 07-21-2024 Episodic Other non-traumatic joint disorders (2 sources) Pain in elbow; Translations: [Pain in left elbow] 10-23-2024 Episodic Skin and subcutaneous tissue infections (1 source) Cellulitis of right upper limb; Translations: [CELLULITIS OF RIGHT UPPER LIMB] Onset: 09-07-2022 Episodic Past or Other Problems Problem Classification Problem Date Documented Da te Episodic/Chronic Other injuries and conditions due to external causes (15 sources) Closed injury of head; Translations: [Unspecified injury of head, initial encounter] Onset: 07-21-2024 07-21-2024 Episodic Other nervous system disorders (15 sources) Paresthesia; Translations: [Paresthesia of skin] Onset: 07-21-2024 07-21-2024 Episodic Other nervous system disorders (20 sources) Tremor; Translations: [Tremor, unspecified] Onset: 07-21-2024 07-21-2024 Episodic Residual codes; unclassified (19 sources) Insomnia; Translations: [Insomnia, unspecified] Onset: 07-21-2024 07-21-2024 Episodic Spondylosis; intervertebral disc disorders; other back problems (20 sources) Lumbar radiculopathy; Translations: [Radiculopathy, lumbar region] Onset: 07-21-2024 07-21-2024 Episodic Results Test Name Value Interpretation Reference Range Facil it Basic Metabolic Profon 09-21 Anion gap [Moles/Vol] 14 mmol/L Normal 07-08 [facility] Comment on above: Performed By: #### B MP, CBC #### [facility] [address] [place] [address] [phone] [employer] Control Board Operator: Anam Keith MD Calcium [Mass/Vol] 8.9 mg/dL Normal 8.6-10.4 [facility] Comment on above: Performed By: #### B MP, CBC #### [facility] [address] [place] [address] [phone] [employer] Control Board Operator: Anam Keith MD Chloride [Moles/Vol] 96 mmol/L Low 98-107 [facility] Comment on above: Performed By: #### B MP, CBC #### [facility] [address] [place] [phone] [employer] Board Operator: Anam Keith MD CO2 [Moles/Vol] 22 mmol/L Normal 20-31 [facility] Comment on above: Performed By: #### B MP, CBC #### [facility] [address] [place] [phone] [employer] Control Board Operator: Anam Keith MD Creatinine [Mass/Vol] 0.5 mg/dL Low 0.7-1.2 [facility] Comment on above: Performed By: #### B MP, CBC #### [address] [address] [employer] Control Board Operator: Anam Keith MD GFR/1.73 sq M.predicted among non-blacks MDRD (S/P/Bld) [Vol rate/Area] mL/min/{1.73_m2} Normal >60 [facility] Comment on above: Result Comment: These results are not intended for use in patients <18 years of age. eGFR results are calculated without a race factor using the 2020 CKD-EPI equation. Careful clinical correlation is recommended, particularly when comparing to results calculated using previous equations. The CKD-EPI equation is less accurate in patients with extremes of muscle mass, extra-renal metabolism of creatine, excessive creatine ingestion, or following therapy that affects renal tubular secretion. Performed By: #### B MP, CBC #### [facility] [address] [place] [phone] [employer] Control Board Operator: Anam Keith MD Glucose [Mass/Vol] 114 mg/dL High 70-99 [facility] Comment on above: Performed By: #### B MP, CBC #### [facility] [address] [place] [phone] [employer] Control Board Operator: Anam Keith MD Potassium [Moles/Vol] 3.8 mmol/L Normal 3.7-5.3 [facility] Comment on above: Performed By: #### B MP, CBC #### [address] [phone] [employer] Control Board Operator: Anam Keith MD Sodium [Moles/Vol] 132 mmol/L Low 135-144 [facility] Comment on above: Performed By: #### B MP, CBC #### [address] [phone] [employer] Control Board Operator: Anam Keith MD Urea nitrogen [Mass/Vol] 3 mg/dL Low 8-23 [facility] Comment on above: Performed By: #### B MP, CBC #### [address] [address] [employer] Control Board Operator: Anam Keith MD CBCon 09-21-2023 Erythrocyte distribution width (RBC) [Ratio] 15.9 % High 11.8-14.4 [facility] Comment on above: Performed By: #### B MP, CBC #### [address] [address] [employer] Control Board Operator: Anam Keith MD Hematocrit (Bld) [Volume fraction] 43.6 % Normal 40.7-50.3 [facility] Comment on above: Performed By: #### B MP, CBC #### [address] [address] [employer] Control Board Operator: Anam Keith MD Hemoglobin (Bld) [Mass/Vol] 14.4 g/dL Normal 13.0-17.0 [facility] Comment on above: Performed By: #### B MP, CBC #### [facility] [address] [place] [phone] [employer] Control Board Operator: Anam Keith MD MCH (RBC) [Entitic mass] 33.4 pg Normal 25.2-33.5 [facility] Comment on above: Performed By: #### B MP, CBC #### [address] [address] [employer] Control Board Operator: Anam Keith MD MCHC (RBC) [Mass/Vol] 33.0 g/dL Normal 28.4-34.8 [facility] Comment on above: Performed By: #### B MP, CBC #### [address] [address] [employer] Control Board Operator: Anam Keith MD MCV (RBC) [Entitic vol] 101.2 fL Normal 82.6-102.9 [facility] Comment on above: Performed By: #### B MP, CBC #### [address] [phone] [employer] Control Board Operator: Anam Keith MD NRBC Automated 0.0 per 100 WBC Normal 0.0 [facility] Comment on above: Performed By: #### B MP, CBC #### [address] [address] [employer] Control Board Operator: Anam Keith MD Platelet mean volume (Bld) [Entitic vol] 10.6 fL Normal 8.1-13.5 [facility] Comment on above: Performed By: #### B MP, CBC #### [address] [address] [employer] Control Board Operator: Anam Keith MD Platelets (Bld) [#/Vol] 204 10*3/uL Normal 138-453 [facility] Comment on above: Performed By: #### B MP, CBC #### [address] [address] [employer] Control Board Operator: Anam Keith MD RBC (Bld) [#/Vol] 4.31 10*6/uL Normal 4.21-5.77 [facility] Comment on above: Performed By: #### B MP, CBC #### [facility] [address] [place] [address] [employer]ing [employer] Control Board Operator: Anam Keith MD WBC (Bld) [#/Vol] 10.1 10*3/uL Normal 3.5-11.3 [facility] Comment on above: Performed By: #### B MP, CBC #### [facility] [address] [place] [address] [employer]ing [employer] Control Board Operator: Anam Keith MD Basic Metabolic Profon 09-20 Anion gap [Moles/Vol] 14 mmol/L Normal 9-17 [facility] Comment on above: Performed By: #### B MP, CBC ####[facility] [address] [place], [place] [phone] Director: Anam Keith MD Calcium [Mass/Vol] 8.6 mg/dL Normal 8.6-10.4 [facility] Comment on above: Performed By: #### B MP, CBC ####[facility] [address] [place], [place] [phone] Director: Anam Keith MD Chloride [Moles/Vol] 98 mmol/L Normal 98-107 [facility] Comment on above: Performed By: #### B MP, CBC ####[facility] [address] [place], [place] [phone] Director: Anam Keith MD CO2 [Moles/Vol] 19 mmol/L Low 20-31 [facility] Comment on above: Performed By: #### B MP, CBC ####[facility] [address] [place], [place] [phone] Director: Anam Keith MD Creatinine [Mass/Vol] 0.5 mg/dL Low 0.7-1.2 [facility] Comment on above: Performed By: #### B MP, CBC ####[facility] [address] [place] [address] Lab Director: Anam Keith MD GFR/1.73 sq M.predicted among non-blacks MDRD (S/P/Bld) [Vol rate/Area] mL/min/{1.73_m2} Normal >60 [facility] Comment on above: Result Comment: These results are not intended for use in patients <18 years of age. eGFR results are calculated without a race factor using the 2020 CKD-EPI equation. Careful clinical correlation is recommended, particularly when comparing to results calculated using previous equations. The CKD-EPI equation is less accurate in patients with extremes of muscle mass, extra-renal metabolism of creatine, excessive creatine ingestion, or following therapy that affects renal tubular secretion. Performed By: #### B MP, CBC ####[address] [phone] Director: Anam Keith MD Glucose [Mass/Vol] 78 mg/dL Normal 70-99 [facility] Comment on above: Performed By: #### B MP, CBC ####[facility] [address] [place] [address] [phone] Director: Anam Keith MD Potassium [Moles/Vol] 4.2 mmol/L Normal 3.7-5.3 [facility] Comment on above: Performed By: #### B MP, CBC ####[facility] [address] [place] [address] [phone] Director: Anam Keith MD Sodium [Moles/Vol] 131 mmol/L Low 135-144 [facility] Comment on above: Performed By: #### B MP, CBC ####[facility] [address] [place], [place] [phone] Director: Anam Keith MD Urea nitrogen [Mass/Vol] 2 mg/dL Low 8-23 [facility] Comment on above: Performed By: #### B MP, CBC ####[facility] [address] [place] [address] [phone] Director: Anam Keith MD CBCon 09-20-2023 Erythrocyte distribution width (RBC) [Ratio] 15.9 % High 11.8-14.4 [facility] Comment on above: Performed By: #### B MP, CBC #### [address] [address] [employer] Control Board Operator: Anam Keith MD Hematocrit (Bld) [Volume fraction] 48.1 % Normal 40.7-50.3 [facility] Comment on above: Performed By: #### B MP, CBC #### [address] [address] [employer] Control Board Operator: Anam Keith MD Hemoglobin (Bld) [Mass/Vol] 15.3 g/dL Normal 13.0-17.0 [facility] Comment on above: Performed By: #### B MP, CBC #### [address] [address] [employer] Control Board Operator: Anam Keith MD MCH (RBC) [Entitic mass] 33.9 pg High 25.2-33.5 [facility] Comment on above: Performed By: #### B MP, CBC #### [address] [address] [employer] Control Board Operator: Anam Keith MD MCHC (RBC) [Mass/Vol] 31.8 g/dL Normal 28.4-34.8 [facility] Comment on above: Performed By: #### B MP, CBC #### [address] [address] [employer] Control Board Operator: Anam Keith MD MCV (RBC) [Entitic vol] 106.7 fL High 82.6-102.9 [facility] Comment on above: Performed By: #### B MP, CBC #### [address] [address] [employer] Control Board Operator: Anam Keith MD NRBC Automated 0.0 per 100 WBC Normal 0.0 [facility] Comment on above: Performed By: #### Ovi PALACIOS, CBC #### [address] [address] [employer] Control Board Operator: Anam Keith MD Platelet mean volume (Bld) [Entitic vol] 10.0 fL Normal 8.1-13.5 [facility] Comment on above: Performed By: #### B PHILIP, CBC #### [address] [address] [employer] Control Board Operator: Anam Keith MD Platelets (Bld) [#/Vol] 172 10*3/uL Normal 138-453 [facility] Comment on above: Performed By: #### Ovi PALACIOS, CBC #### [address] [address] [employer] Control Board Operator: Anam Keith MD RBC (Bld) [#/Vol] 4.51 10*6/uL Normal 4.21-5.77 [facility] Comment on above: Performed By: #### Ovi PALACIOS, CBC #### [address] [address] [employer] Control Board Operator: Anam Keith MD WBC (Bld) [#/Vol] 10.3 10*3/uL Normal 3.5-11.3 [facility] Comment on above: Performed By: #### Ovi PALACIOS, CBC #### [address] [address] [employer] Control Board Operator: Anam Keith MD FL MODIFIED BARIUM SWALLOW W VIDEOon 09-20-2023 FL MODIFIED BARIUM SWALLOW W VIDEO EXAMINATION: MODIFIED BARIUM SWALLOW WAS PERFORMED IN CONJUNCTION WITH SPEECH PATHOLOGY SERVICES TECHNIQUE: Under fluoroscopic evaluation cineradiography/videora diography recordings were performed in conjunction with the speech-language pathologist ([employer]). Various liquid, solid and/or semi-solid barium preparations were used to assess swallowing function. FLUOROSCOPY DOSE AND TYPE: Radiation Exposure Index: DAP 14.410hHhfw2, COMPARISON: None HISTORY: ORDERING SYSTEM PROVIDED HISTORY: Assess swallow TECHNOLOGIST PROVIDED HISTORY: Assess swallow FINDINGS: Thin liquid: Given by straw there is flash laryngeal penetration. No aspiration. Thick liquid: [place] thick liquid given by straw no laryngeal penetration or aspiration. Puree and soft solid: No laryngeal penetration or aspiration. Premature spillage of administered consistencies into the vallecula and piriform sinus which mostly clear. IMPRESSION: Flash laryngeal penetration of thin liquid. No aspiration. Please see separate speech pathology report for full discussion of findings and recommendations. Interpreted by: Beka Farris MD Signed by: Beka Farris MD 09/20/23 Final result Normal [facility] Basic Metabolic Profon 09-19 Anion gap [Moles/Vol] 8 mmol/L Low 9-17 [facility] Comment on above: Performed By: #### C BC, BMP #### [address] [address] [employer] Control Board Operator: Anam Keith MD Calcium [Mass/Vol] 8.7 mg/dL Normal 8.6-10.4 [facility] Comment on above: Performed By: #### C BC, BMP #### [facility] [address] [place] [phone] [employer] Control Board Operator: Anam Keith MD Chloride [Moles/Vol] 97 mmol/L Low 98-107 [facility] Comment on above: Performed By: #### C BC, BMP #### [facility] [address] [place] [address] [employer] Control Board Operator: Anam Keith MD CO2 [Moles/Vol] 24 mmol/L Normal 20-31 [facility] Comment on above: Performed By: #### C BC, BMP #### [facility] [address] [place] [phone] [employer] Control Board Operator: Anam Keith MD Creatinine [Mass/Vol] 0.6 mg/dL Low 0.7-1.2 [facility] Comment on above: Performed By: #### C BC, BMP #### [facility] [address] [place] [phone] [employer] Control Board Operator: Anam Keith MD GFR/1.73 sq M.predicted among non-blacks MDRD (S/P/Bld) [Vol rate/Area] mL/min/{1.73_m2} Normal >60 [facility] Comment on above: Result Comment: These results are not intended for use in patients <18 years of age. eGFR results are calculated without a race factor using the 2020 CKD-EPI equation. Careful clinical correlation is recommended, particularly when comparing to results calculated using previous equations. The CKD-EPI equation is less accurate in patients with extremes of muscle mass, extra-renal metabolism of creatine, excessive creatine ingestion, or following therapy that affects renal tubular secretion. Performed By: #### C BC, BMP #### [facility] [address] [place] [phone] [employer] Control Board Operator: Anam Keith MD Glucose [Mass/Vol] 81 mg/dL Normal 70-99 [facility] Comment on above: Performed By: #### C BC, BMP #### [facility] [address] [place] [phone] [employer] Control Board Operator: Anam Keith MD Potassium [Moles/Vol] 4.2 mmol/L Normal 3.7-5.3 [facility] Comment on above: Performed By: #### C BC, BMP #### [facility] [address] [place] [phone] [employer] Control Board Operator: Anam Keith MD Sodium [Moles/Vol] 129 mmol/L Low 135-144 [facility] Comment on above: Performed By: #### C BC, BMP #### [facility] [address] [place] [phone] [employer] Control Board Operator: Anam Keith MD Urea nitrogen [Mass/Vol] 4 mg/dL Low 8-23 [facility] Comment on above: Performed By: #### C BC, BMP #### [facility] [address] [place] [phone] [employer] Control Board Operator: Anam Keith MD CBCon 09-19-2023 Erythrocyte distribution width (RBC) [Ratio] 15.9 % High 11.8-14.4 [facility] Comment on above: Performed By: #### C BC, BMP #### [facility] [address] [place] [address] [employer] Control Board Operator: Anam Keith MD Hematocrit (Bld) [Volume fraction] 42.7 % Normal 40.7-50.3 [facility] Comment on above: Performed By: #### C BC, BMP #### [facility] [address] [place] [address] [employer] Control Board Operator: Anam Keith MD Hemoglobin (Bld) [Mass/Vol] 14.1 g/dL Normal 13.0-17.0 [facility] Comment on above: Performed By: #### C BC, BMP #### [facility] [address] [place] [phone] [employer] Control Board Operator: Anam Keith MD MCH (RBC) [Entitic mass] 33.7 pg High 25.2-33.5 [facility] Comment on above: Performed By: #### C BC, BMP #### [facility] [address] [place] [address] Casting Machine Control Board Operator: Anam Keith MD MCHC (RBC) [Mass/Vol] 33.0 g/dL Normal 28.4-34.8 [facility] Comment on above: Performed By: #### C BC, BMP #### [facility] [employer] [address] [place] [address] Casting Machine Control Board Operator: Anam Keith MD MCV (RBC) [Entitic vol] 101.9 fL Normal 82.6-102.9 [facility] Comment on above: Performed By: #### C BC, BMP #### [address] [address] Casting Machine Control Board Operator: Anam Keith MD NRBC Automated 0.0 per 100 WBC Normal 0.0 [facility] Comment on above: Performed By: #### C BC, BMP #### [address] [address] Casting Machine Control Board Operator: Anam Keith MD Platelet mean volume (Bld) [Entitic vol] 10.4 fL Normal 8.1-13.5 [facility] Comment on above: Performed By: #### C [place], BMP #### [address] [address] Casting Machine Control Board Operator: Anam Keith MD Platelets (Bld) [#/Vol] 168 10*3/uL Normal 138-453 [facility] Comment on above: Performed By: #### Car CASIANO, BMP #### [address] [address] Casting Machine Control Board Operator: Anam Keith MD RBC (Bld) [#/Vol] 4.19 10*6/uL Low 4.21-5.77 [facility] Comment on above: Performed By: #### Car CASIANO, BMP #### [address] [address] Casting Machine Control Board Operator: Anam Keith MD WBC (Bld) [#/Vol] 12.2 10*3/uL High 3.5-11.3 [facility] Comment on above: Performed By: #### C [place], BMP #### [address] [address] Casting Machine Control Board Operator: Anam Keith MD MRI BRAIN W WO CONTRASTon MRI BRAIN W WO CONTRAST EXAMINATION: MRI OF THE BRAIN WITHOUT AND WITH CONTRAST 09/19/2023 12:03 pm TECHNIQUE: Multiplanar multisequence MRI of the head/brain was performed without and with the administration of intravenous contrast. COMPARISON: None. HISTORY: ORDERING SYSTEM PROVIDED HISTORY: Seizure like activity TECHNOLOGIST PROVIDED HISTORY: Epilepsy protocol Seizure like activity Reason for Exam: Seizure like activity Initial evaluation. FINDINGS: Motion degrades images limiting evaluation. INTRACRANIAL STRUCTURES/VENTRICLES: There is no acute infarct. 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 No mass effect or midline shift. No evidence of an acute intracranial hemorrhage. Areas of T2 FLAIR hyperintensity are seen in the periventricular and subcortical white matter, which are nonspecific, but may represent chronic microvascular ischemic change. There is mild global parenchymal volume loss. Otherwise, the ventricles and sulci are normal in size and configuration. The sellar/suprasellar regions appear unremarkable. The normal signal voids within the major intracranial vessels appear maintained. No abnormal focus of enhancement is seen within the brain. ORBITS: The visualized portion of the orbits demonstrate no acute abnormality. SINUSES: The visualized paranasal sinuses and mastoid air cells demonstrate no acute abnormality. BONES/SOFT TISSUES: The bone marrow signal intensity appears normal. The soft tissues demonstrate no acute abnormality. IMPRESSION: 1. Patient motion limits evaluation. 2. No convincing acute intracranial abnormality. No acute infarct. 3. There is a small chronic infarct within the left occipital lobe. 4. Mild global parenchymal volume loss with chronic microvascular ischemic changes. Interpreted by: Rigo Monroe MD Signed by: Rigo Monroe MD 09/19/23 Final result Normal [facility] CBC with Diffon 09-18-2023 Abs. Basophil 0.05 k/uL Normal 0.00-0.20 [facility] Comment on above: Performed By: #### C JESÚS CMPX ####[facility] [address] [place] [address] Lab Director: Anam Keith MD Abs.Imm.Granulocyt e 0.07 k/uL Normal 0.00-0.30 [facility] Comment on above: Performed By: #### C JESÚS CMPX ####[facility] [address] [place] [address] lab Director: Anam Keith MD Abs.Neutrophil (Seg) 9.01 k/uL High 1.50-8.10 [facility] Comment on above: Performed By: #### C DP, CMPX ####[facility] [address] [place], [place] [id number])[phone] Director: Anam Keith MD Basophils/100 WBC (Bld) 0 % Normal 0-2 [facility] Comment on above: Performed By: #### C DP, CMPX ####[address] [address] Lab Director: Anam Keith MD Eosinophils (Bld) [#/Vol] 0.14 10*3/uL Normal 0.00-0.44 [facility] Comment on above: Performed By: #### C DP, CMPX ####[address] [address] Lab Director: Anam Keith MD Eosinophils/100 WBC (Bld) 1 % Normal 1-4 [facility] Comment on above: Performed By: #### C DP, CMPX ####[address] [address] Lab Director: Anam Keith MD Immature granulocytes/100 WBC (Bld) 1 % High 0 [facility] Comment on above: Performed By: #### C DP, CMPX ####[address] [address] Lab Director: Anam Keith MD Lymphocytes (Bld) [#/Vol] 1.65 10*3/uL Normal 1.10-3.70 [facility] Comment on above: Performed By: #### C DP, CMPX ####[address] [address] Lab Director: Anam Keith MD Lymphocytes/100 WBC (Bld) 14 % Low 24-43 [facility] Comment on above: Performed By: #### C DP, CMPX ####[address] [address] Lab Director: Anam Keith MD Monocytes (Bld) [#/Vol] 1.17 10*3/uL Normal 0.10-1.20 [facility] Comment on above: Performed By: #### C DP, CMPX ####[address] [phone] Director: Anam Keith MD Monocytes/100 WBC (Bld) 10 % Normal 3-12 [facility] Comment on above: Performed By: #### C DP, CMPX ####[address] [address])[phone] Director: Anam Keith MD Neutrophil (Seg) 75 % High 36-65 [facility] Comment on above: Performed By: #### C DP, CMPX ####[address] [address])[phone] Director: Anam Keith MD Erythrocyte distribution width (RBC) [Ratio] 16.4 % High 11.8-14.4 [facility] Comment on above: Performed By: #### C DP, CMPX ####[address] [address])[phone] Director: Anam Keith MD Hematocrit (Bld) [Volume fraction] 45.2 % Normal 40.7-50.3 [facility] Comment on above: Performed By: #### C DP, CMPX ####[facility] [address] [place] [address])[phone] Director: Anam Keith MD Hemoglobin (Bld) [Mass/Vol] 14.9 g/dL Normal 13.0-17.0 [facility] Comment on above: Performed By: #### C DP, CMPX ####[facility] [address] [place], [place] [phone] Director: Anam Keith MD MCH (RBC) [Entitic mass] 33.5 pg Normal 25.2-33.5 [facility] Comment on above: Performed By: #### C DP, CMPX ####[address] [address])[phone] Director: Anam Keith MD MCHC (RBC) [Mass/Vol] 33.0 g/dL Normal 28.4-34.8 [facility] Comment on above: Performed By: #### C DP, CMPX ####[address] [address])[phone] Director: Anam Keith MD MCV (RBC) [Entitic vol] 101.6 fL Normal 82.6-102.9 [facility] Comment on above: Performed By: #### C DP, CMPX ####[address] [address])[phone] Director: nAam Keith MD NRBC Automated 0.0 per 100 WBC Normal 0.0 [facility] Comment on above: Performed By: #### C DP, CMPX ####[address] [address])[phone] Director: Anam Keith MD Platelet mean volume (Bld) [Entitic vol] 10.3 fL Normal 8.1-13.5 [facility] Comment on above: Performed By: #### C DP, CMPX ####[address] [address])[phone] Director: Anam Keith MD Platelets (Bld) [#/Vol] 206 10*3/uL Normal 138-453 [facility] Comment on above: Performed By: #### C DP, CMPX ####[address] [phone] Director: Anam Keith MD RBC (Bld) [#/Vol] 4.45 10*6/uL Normal 4.21-5.77 [facility] Comment on above: Performed By: #### C DP, CMPX ####[facility] [address] [place], [place] [address])[phone] Director: Anam Keith MD RBC morphology finding Nom (Bld) ANISOCYTOSIS PRESENT Normal [facility] Comment on above: Performed By: #### C DP, CMPX ####[facility] [address] [place], [place] [address])[phone] Director: Anam Keith MD WBC (Bld) [#/Vol] 12.1 10*3/uL High 3.5-11.3 [facility] Comment on above: Performed By: #### C DP, CMPX ####[facility] [address] [place], [place] [id number])[phone] Director: Anam Keith MD Comp Metabolic Pr/rfx MGon 1 11-18-2022 Albumin [Mass/Vol] 3.3 g/dL Low 3.5-5.2 [facility] Comment on above: Performed By: #### C DP, CMPX ####[facility] [address] [place], [place] [address])[phone] Director: Anam Keith MD Albumin/Glob Ratio 0.8 Low 1.0-2.5 [facility] Comment on above: Performed By: #### C DP, CMPX ####[facility] [address] [place], [place] [id number])[phone] Director: Anam Keith MD Alkaline Phos 90 U/L Normal 40-129 [facility] Comment on above: Result Comment: SPEC IMEN SLIGHTLY HEMOLYZED, RESULTS MAY BE ADVERSELY AFFECTED. Performed By: #### C DP, CMPX ####[facility] [address] [place], [place] [id number])[phone] Director: Anam Keith MD ALT [Catalytic activity/Vol] 15 U/L Normal 5-41 [facility] Comment on above: Result Comment: SPEC IMEN SLIGHTLY HEMOLYZED, RESULTS MAY BE ADVERSELY AFFECTED. Performed By: #### C DP, CMPX ####[facility] [address] [place] [address])[phone] Director: Anam Keith MD Anion gap [Moles/Vol] 10 mmol/L Normal 9-17 [facility] Comment on above: Performed By: #### C DP, CMPX ####[address] [address])[phone] Director: Anam Keith MD AST [Catalytic activity/Vol] 28 U/L Normal <40 [facility] Comment on above: Result Comment: SPEC IMEN SLIGHTLY HEMOLYZED, RESULTS MAY BE ADVERSELY AFFECTED. Performed By: #### C DP, CMPX ####[address] [address])[phone] Director: Anam Keith MD Bilirubin [Mass/Vol] 0.7 mg/dL Normal 0.3-1.2 [facility] Comment on above: Performed By: #### C DP, CMPX ####[address] [address])[phone] Director: Anam Keith MD Calcium [Mass/Vol] 8.4 mg/dL Low 8.6-10.4 [facility] Comment on above: Performed By: #### C DP, CMPX ####[facility] [address] [place] [address])[phone] Director: Anam Keith MD Chloride [Moles/Vol] 98 mmol/L Normal 98-107 [facility] Comment on above: Performed By: #### C DP, CMPX ####[facility] [address] [place], [place] [address])[phone] Director: Anam Keith MD CO2 [Moles/Vol] 24 mmol/L Normal 20-31 [facility] Comment on above: Performed By: #### C DP, CMPX ####[facility] [address] [place] [address] Lab Director: Anam Keith MD Creatinine [Mass/Vol] 0.6 mg/dL Low 0.7-1.2 [facility] Comment on above: Performed By: #### C DP, CMPX ####[address] [address] Lab Director: Anam Keith MD GFR/1.73 sq M.predicted among non-blacks MDRD (S/P/Bld) [Vol rate/Area] mL/min/{1.73_m2} Normal >60 [facility] Comment on above: Result Comment: These results are not intended for use in patients <18 years of age. eGFR results are calculated without a race factor using the 2020 CKD-EPI equation. Careful clinical correlation is recommended, particularly when comparing to results calculated using previous equations. The CKD-EPI equation is less accurate in patients with extremes of muscle mass, extra-renal metabolism of creatine, excessive creatine ingestion, or following therapy that affects renal tubular secretion. Performed By: #### C DP, CMPX ####[address] [id number])[phone] Director: Anam Keith MD Glucose [Mass/Vol] 83 mg/dL Normal 70-99 [facility] Comment on above: Performed By: #### C DP, CMPX ####[address] [address] Lab Director: Anam Keith MD Potassium [Moles/Vol] 5.3 mmol/L Normal 3.7-5.3 [facility] Comment on above: Result Comment: SPEC IMEN SLIGHTLY HEMOLYZED, RESULTS MAY BE ADVERSELY AFFECTED. Performed By: #### C DP, CMPX ####[facility] [address] [place], [place] [id number])[phone] Director: Anam Keith MD Protein [Mass/Vol] 7.2 g/dL Normal 6.4-8.3 [facility] Comment on above: Performed By: #### C DP, CMPX ####[facility] [address] [place] [address] Lab Director: Anam Keith MD Sodium [Moles/Vol] 132 mmol/L Low 135-144 [facility] Comment on above: Performed By: #### C DP, CMPX ####[facility] [address] [place] [address] lab Director: Anam Keith MD Urea nitrogen [Mass/Vol] 6 mg/dL Low 8-23 [facility] Comment on above: Performed By: #### C DP, CMPX ####[facility] [address] [place] [address] lab Director: Anam Keith MD XR ABDOMEN (KUB) (SINGLE AP VIEW)on 09-18-2023 XR ABDOMEN (KUB) (SINGLE AP VIEW) EXAMINATION: ONE SUPINE XRAY VIEW(S) OF THE ABDOMEN 09/18/2023 8:47 am COMPARISON: None. HISTORY: ORDERING SYSTEM PROVIDED HISTORY: MRI clearance TECHNOLOGIST PROVIDED HISTORY: MRI clearance Reason for Exam: mri clearance port supine at 835am FINDINGS: There is a left iliac artery stent. No evidence of bowel obstruction. Osseous structures demonstrate no acute abnormality. IMPRESSION: Left iliac artery stent. No acute bowel obstruction. Interpreted by: Edvin Richardson MD Signed by: Edvin Richardson MD 09/18/23 Final result Normal [facility] XR CHEST PORTABLEon 09-18-20 XR CHEST PORTABLE EXAMINATION: ONE XRAY VIEW OF THE CHEST 09/18/2023 8:47 am COMPARISON: None. HISTORY: ORDERING SYSTEM PROVIDED HISTORY: MRI clearance TECHNOLOGIST PROVIDED HISTORY: MRI clearance Reason for Exam: mri clearance port supine at 835am FINDINGS: Mild right basilar atelectasis. Radiopaque foreign body. The lungs are without acute focal process. There is no effusion or pneumothorax. The cardiomediastinal silhouette is without acute process. The osseous structures are without acute process. IMPRESSION: No acute process. No metallic foreign body. Interpreted by: Edvin Richardson MD Signed by: Edvin Richardson MD 09/18/23 Final result Normal [facility] CT HEAD WO CONTRASTon 2022 CT HEAD WO CONTRAST ADDENDUM: Results were conveyed to Dr. Jacinto on 09/17/2023 at 4:19 p.m. Electronically Signed by: JOHN MONTEIRO on SunSep 17, 2023 4:29:04 PM EST EXAMINATION: CT OF THE HEAD WITHOUT CONTRAST 09/17/2023 3:42 pm TECHNIQUE: CT of the head was performed without the administration of intravenous contrast. Automated exposure control, iterative reconstruction, and/or weight based adjustment of the mA/kV was utilized to reduce the radiation dose to as low as reasonably achievable. COMPARISON: None. HISTORY: ORDERING SYSTEM PROVIDED HISTORY: aphasic, not following commands TECHNOLOGIST PROVIDED HISTORY: Aphasic, not following commands Decision Support Exception - unselect if not a suspected or confirmed emergency medical condition->Emergency Medical Condition (MA) FINDINGS: BRAIN/VENTRICLES: There is no acute intracranial hemorrhage, mass effect or midline shift. No abnormal extra-axial fluid collection. The osorio-white differentiation is maintained without evidence of an acute infarct. There is no evidence of hydrocephalus. Mild left occipital lobe encephalomalacia is identified. Moderate chronic microvascular disease is identified within the periventricular white matter. Mild atrophy is noted ORBITS: The visualized portion of the orbits demonstrate no acute abnormality. SINUSES: The visualized paranasal sinuses and mastoid air cells demonstrate no acute abnormality. SOFT TISSUES/SKULL: No acute abnormality of the visualized skull or soft tissues. IMPRESSION: No acute intracranial abnormality. Mild left occipital lobe encephalomalacia. Moderate chronic microvascular disease within the periventricular white matter with associated mild atrophy. Interpreted by: John Monteiro MD Signed by: John Monteiro MD 09/17/23 Edited Result - FINAL Normal [facility] CTA HEAD NECK W CONTRASTon 1 11-17-2022 CTA HEAD NECK W CONTRAST EXAMINATION: CTA OF THE HEAD AND NECK WITH CONTRAST 09/17/2023 3:42 pm: TECHNIQUE: CTA of the head and neck was performed with the administration of intravenous contrast. Multiplanar reformatted images are provided for review. MIP images are provided for review. Stenosis of the internal carotid arteries measured using NASCET criteria. Automated exposure control, iterative reconstruction, and/or weight based adjustment of the mA/kV was utilized to reduce the radiation dose to as low as reasonably achievable. COMPARISON: None. HISTORY: ORDERING SYSTEM PROVIDED HISTORY: Aphasic, not following commands TECHNOLOGIST PROVIDED HISTORY: Aphasic, not following commands Decision Support Exception - unselect if not a suspected or confirmed emergency medical condition->Emergency Medical Condition (MA) FINDINGS: CTA NECK: AORTIC ARCH/ARCH VESSELS: No dissection or arterial injury. No significant stenosis of the brachiocephalic or subclavian arteries. CAROTID ARTERIES: No dissection, arterial injury, or hemodynamically significant stenosis by NASCET criteria. VERTEBRAL ARTERIES: No dissection, arterial injury, or significant stenosis. SOFT TISSUES: The lung apices are clear. No cervical or superior mediastinal lymphadenopathy. The larynx and pharynx are unremarkable. No acute abnormality of the salivary and thyroid glands. BONES: No acute osseous abnormality. CTA HEAD: ANTERIOR CIRCULATION: No significant stenosis of the intracranial internal carotid, anterior cerebral, or middle cerebral arteries. No aneurysm. POSTERIOR CIRCULATION: No significant stenosis of the vertebral, basilar, or posterior cerebral arteries. No aneurysm. OTHER: No dural venous sinus thrombosis on this non-dedicated study. BRAIN: No mass effect or midline shift. No extra-axial fluid collection. The osorio-white differentiation is maintained. IMPRESSION: Unremarkable CTA of the head and neck. Interpreted by: John Monteiro MD Signed by: John Monteiro MD 09/17/23 Final result Normal [facility] Keppraon 09-17-2023 KEPP 29 ug/mL Normal [facility] Comment on above: Result Comment: A reference range for Keppra has not been well established. The proposed therapeutic range for seizure control is 6-46 ug/mL. Measurement of Levetiracetam (Keppra) can be elevated due to the presence of both Keppra and Brivaracetam (Briviact) in the patient's system. The medications are structurally similar thus cross reactivity is possible. Pharmacokinetics of Keppra are affected by renal function. The relationship between serum concentrations and toxicity is not known. Performed By: #### S PEARL ARNETT #### [facility] [employer] [place] [address] Casting Machine Control Board Operator: Anam Keith MD Stroke Panelon 09-17-2023 Anion gap [Moles/Vol] 11 mmol/L Normal 9-17 [facility] Comment on above: Performed By: #### PEARL GLEASON #### [facility] [address] [place] [address] Casting Machine Control Board Operator: Anam Keith MD Calcium [Mass/Vol] 9.4 mg/dL Normal 8.6-10.4 [facility] Comment on above: Performed By: #### PEARL GLEASON #### [facility] [address] [place] [address] Casting Machine Control Board Operator: Anam Keith MD Chloride [Moles/Vol] 90 mmol/L Low 98-107 [facility] Comment on above: Performed By: #### PEARL GLEASON #### [facility] [address] [place] [address] Casting [employer] Control Board Operator: Anam Keith MD CK [Catalytic activity/Vol] 34 U/L Low 39-308 [facility] Comment on above: Performed By: #### PEARL GLEASON #### [facility] [address] [place] [address] Casting Machine Control Board Operator: Anam Keith MD CO2 [Moles/Vol] 28 mmol/L Normal 20-31 [facility] Comment on above: Performed By: #### PEARL GLEASON #### [facility] [address] [place] [address] Casting Machine Control Board Operator: Anam Keith MD Creatinine [Mass/Vol] 0.8 mg/dL Normal 0.7-1.2 [facility] Comment on above: Performed By: #### PEARL GLEASON #### [facility] [address] [place] [address] Casting Machine Control Board Operator: Anam Keith MD GFR/1.73 sq M.predicted among non-blacks MDRD (S/P/Bld) [Vol rate/Area] mL/min/{1.73_m2} Normal >60 [facility] Comment on above: Result Comment: These results are not intended for use in patients <18 years of age. eGFR results are calculated without a race factor using the 2020 CKD-EPI equation. Careful clinical correlation is recommended, particularly when comparing to results calculated using previous equations. The CKD-EPI equation is less accurate in patients with extremes of muscle mass, extra-renal metabolism of creatine, excessive creatine ingestion, or following therapy that affects renal tubular secretion. Performed By: #### PEARL GLEASON #### [facility] [address] [place] [address] Casting Machine Control Board Operator: Anam Keith MD Glucose [Mass/Vol] 115 mg/dL High 70-99 [facility] Comment on above: Performed By: #### PEARL GLEASON #### [facility] [employer] [place] [address] Casting Machine Control Board Operator: Anam Keith MD Potassium [Moles/Vol] 4.2 mmol/L Normal 3.7-5.3 [facility] Comment on above: Performed By: #### PEARL GLEASON #### [facility] [address] [place] [address] Casting Machine Control Board Operator: Anam Keith MD Sodium [Moles/Vol] 129 mmol/L Low 135-144 [facility] Comment on above: Performed By: #### PEARL GLEASON #### [facility] [address] [place] [address] Casting Machine Control Board Operator: Anam Keith MD Urea nitrogen [Mass/Vol] 10 mg/dL Normal 8-23 [facility] Comment on above: Performed By: #### PEARL GLEASON #### [facility] [address] [place] [address] Casting Machine Control Board Operator: Anam Keith MD Abs. Basophil 0.00 k/uL Normal 0.0-0.2 [facility] Comment on above: Performed By: #### PEARL GLEASON #### [facility] [address] [place] [address] Casting Machine Control Board Operator: Anam Keith MD Abs.Imm.Granulocyt e 0.00 k/uL Normal 0.00-0.30 [facility] Comment on above: Performed By: #### PEARL GLEASON #### [address] [address] Casting Machine Control Board Operator: Anam Keith MD Abs.Neutrophil (Seg) 15.75 k/uL High 1.8-7.7 [facility] Comment on above: Performed By: #### PEARL GLEASON #### [address] [address] Casting Machine Control Board Operator: Anam Keith MD Basophils/100 WBC (Bld) 0 % Normal 0-2 [facility] Comment on above: Performed By: #### PEARL GLEASON #### [address] [address] Casting Machine Control Board Operator: Anam Keith MD Eosinophils (Bld) [#/Vol] 0.21 10*3/uL Normal 0.0-0.4 [facility] Comment on above: Performed By: #### PEARL GLEASON #### [facility] [address] [place] [address] Casting Machine Control Board Operator: Anam Keith MD Eosinophils/100 WBC (Bld) 1 % Normal 1-4 [facility] Comment on above: Performed By: #### PEARL GLEASON #### [facility] [address] [place] [phone] Casting Machine Control Board Operator: Anam Keith MD Immature granulocytes/100 WBC (Bld) 0 % Normal 0 [facility] Comment on above: Performed By: #### PEARL GLEASON #### [address] [address] [employer] Control Board Operator: Anam Keith MD Lymphocytes (Bld) [#/Vol] 1.89 10*3/uL Normal 1.0-4.8 [facility] Comment on above: Performed By: #### PEARL GLEASON #### [address] [address] [employer] Control Board Operator: Anam Keith MD Lymphocytes/100 WBC (Bld) 9 % Low 24-44 [facility] Comment on above: Performed By: #### PEARL GLEASON #### [address] [address] [employer] Control Board Operator: Anam Keith MD Monocytes (Bld) [#/Vol] 3.15 10*3/uL High 0.1-0.8 [facility] Comment on above: Performed By: #### PEARL GLEASON #### [address] [address] [employer] Control Board Operator: Anam Keith MD Monocytes/100 WBC (Bld) 15 % High 1-7 [facility] Comment on above: Performed By: #### PEARL GLEASON #### [address] [address] [employer] Control Board Operator: Anam Keith MD Morphology Omari (Bld) [Interp] ANISOCYTOSIS PRESENT Normal [facility] Comment on above: Performed By: #### PEARL GLEASON #### [address] [address] [employer] Control Board Operator: Anam Keith MD Neutrophil (Seg) 75 % High 36-66 [facility] Comment on above: Performed By: #### PEARL GLEASON #### [facility] [address] [place] [address] [employer] Control Board Operator: Anam Keith MD Myoglobin [Mass/Vol] 40 ng/mL Normal 28-72 [facility] Comment on above: Performed By: #### PEARL GLEASON #### [facility] [address] [place] [address] [employer] Control Board Operator: Anam Keith MD Troponin, High Sens 8 ng/L Normal 0-22 [facility] Comment on above: Result Comment: High Sensitivity Troponin values cannot be compared with other Troponin methodologies. Performed By: #### PEARL GLEASON #### [facility] [address] [place] [address] [employer] Control Board Operator: nAam Keith MD aPTT Coag (Bld) [Time] 31.4 s Normal 23.0-36.5 [facility] Comment on above: Result Comment: IV Heparin Therapy Range: 66.0-92.0 sec Performed By: #### PEARL GLEASON #### [facility] [address] [place] [address] [employer] Control Board Operator: Anam Keith MD INR Coag (PPP) [Relative time] 1.1 {INR} Normal [facility] Comment on above: Result Comment: Therapeutic Range: Moderate Anticoagulant Intensity: INR = 2.0-3.0 High Anticoagulant Intensity: INR = 2.5-3.5 Performed By: #### PEARL GLEASON #### [facility] [address] [place] [address] [employer] Control Board Operator: Anam Keith MD PT Coag (PPP) [Time] 13.8 s Normal 11.7-14.9 [facility] Comment on above: Performed By: #### PEARL GLEASON #### [employer] [address] [place] [address] [employer] Control Board Operator: Anam Keith MD Erythrocyte distribution width (RBC) [Ratio] 16.6 % High 11.8-14.4 [facility] Comment on above: Performed By: #### PEARL GLEASON #### [facility] [address] [place] [address] [employer] Board Operator: Anam Keith MD Hematocrit (Bld) [Volume fraction] 51.3 % High 40.7-50.3 [facility] Comment on above: Performed By: #### PEARL GLEASON #### [facility] [address] [place] [address] [employer] Control Board Operator: Anam Keith MD Hemoglobin (Bld) [Mass/Vol] 17.4 g/dL High 13.0-17.0 [facility] Comment on above: Performed By: #### PEARL GLEASON #### [facility] [address] [place] [address] [employer] Control Board Operator: Anam Keith MD MCH (RBC) [Entitic mass] 33.5 pg Normal 25.2-33.5 [facility] Comment on above: Performed By: #### PEARL GLEASON #### [facility] [address] [place] [address] [employer] Control Board Operator: Anam Keith MD MCHC (RBC) [Mass/Vol] 33.9 g/dL Normal 28.4-34.8 [facility] Comment on above: Performed By: #### PEARL GLEASON #### [facility] [address] [place] [address] [employer] Control Board Operator: Anam Keith MD MCV (RBC) [Entitic vol] 98.7 fL Normal 82.6-102.9 [facility] Comment on above: Performed By: #### PEARL GLEASON #### [facility] [address] [place] [address] [employer] Control Board Operator: Anam Keith MD NRBC Automated 0.0 per 100 WBC Normal 0.0 [facility] Comment on above: Performed By: #### PEARL GLEASON #### [address] [address] [employer] Control Board Operator: Anam Keith MD Platelet mean volume (Bld) [Entitic vol] 10.1 fL Normal 8.1-13.5 [facility] Comment on above: Performed By: #### PEARL GLEASON #### [facility] [address] [place] [address] [employer] Control Board Operator: nAam Keith MD Platelets (Bld) [#/Vol] 257 10*3/uL Normal 138-453 [facility] Comment on above: Performed By: #### PEARL GLEASON #### [address] [address] [employer] Control Board Operator: Anam Keith MD RBC (Bld) [#/Vol] 5.20 10*6/uL Normal 4.21-5.77 [facility] Comment on above: Performed By: #### PEARL GLEASON #### [facility] [address] [place] [address] [employer] Board Operator: Anam Keith MD WBC (Bld) [#/Vol] 21.0 10*3/uL High 3.5-11.3 [facility] Comment on above: Performed By: #### PEARL GLEASON #### [facility] [address] [place] [address] [employer] Control Board Operator: Anam Keith MD HEMOGRAM AND PLATELon 2021 Hematocrit (Bld) [Volume fraction] 29.8 % Critically low 42.0-54.0 [facility] Comment on above: Performed By: #### H H #### [facility] [address] [place] [address] Christoph Jeffery Hemoglobin (Bld) [Mass/Vol] 10.5 g/dL Critically low 14.0-18.0 [facility] Comment on above: Performed By: #### H H #### [facility] [address] [place] [address] Dr. Christoph Jeffery MCH (RBC) [Entitic mass] 39.8 pg Critically high 25.9-34.0 [facility] Comment on above: Performed By: #### H H #### [facility] [address] [place] [address] Dr. Christoph Jeffery MCHC (RBC) [Mass/Vol] 35.2 g/dL Normal 29.9-35.2 [facility] Comment on above: Performed By: #### H H #### [facility] [address] [place] [address] Dr. Christoph Jeffery MCV (RBC) [Entitic vol] 112.9 fL Critically high 80.0-94.0 [facility] Comment on above: Performed By: #### H H #### [facility] [address] [place] [address] Dr. Christoph Jeffery PLT 281 103/ul Normal 150-450 [facility] Comment on above: Performed By: #### H H #### [facility] [address] [place] [address] Dr. Christoph Jeffery RBC 2.64 106/ul Critically low 4.70-6.10 [facility] Comment on above: Performed By: #### H H #### [facility] [address] [place] [address] Dr. Christoph Jeffery WBC 6.0 103/ul Normal 4.0-11.0 [facility] Comment on above: Performed By: #### H H #### [facility] [address] [place] [address] Dr. Christoph Jeffery PROF 14(COMP METB)on 09-04- 022 Albumin [Mass/Vol] 2.5 g/dL Critically low 3.4-5.0 [facility] Comment on above: Performed By: #### C MP #### [facility] [address] [place] [address] Dr. Christoph Jeffery Albumin/Globulin [Mass ratio] 0.6 {ratio} Normal [facility] Comment on above: Performed By: #### C MP #### [facility] [address] [place] [address] Dr. Christoph Jeffery ALP [Catalytic activity/Vol] 63 U/L Normal 46-116 [facility] Comment on above: Performed By: #### C MP #### [facility] [address] [place] [address] Dr. Christoph Jeffery ALT [Catalytic activity/Vol] 20 U/L Normal 16-63 [facility] Comment on above: Performed By: #### C MP #### [facility] [address] [place] [address] Dr. Christoph Jeffery Anion gap [Moles/Vol] 10.6 mmol/L Normal [facility] Comment on above: Performed By: #### C MP #### [facility] [address] [place] [address] Dr. Christoph Jeffery AST [Catalytic activity/Vol] 34 U/L Normal 15-37 [facility] Comment on above: Performed By: #### C MP #### [facility] [address] [place] [address] Dr. Christoph Jeffery Bilirubin [Mass/Vol] 0.4 mg/dL Normal 0.2-1.0 [facility] Comment on above: Performed By: #### C MP #### [facility] [address] [place] [address] Dr. Christoph Jeffery Calcium [Mass/Vol] 8.6 mg/dL Normal 8.5-10.1 [facility] Comment on above: Performed By: #### C MP #### [facility] [address] [place] [address] Dr. Christoph Jeffery Chloride [Moles/Vol] 101 mmol/L Normal 98-107 [facility] Comment on above: Performed By: #### C MP #### [facility] [address] [place] [address] Dr. Christoph Jeffery CO2 [Moles/Vol] 27.2 mmol/L Normal 21.0-32.0 [facility] Comment on above: Performed By: #### C MP #### [facility] [address] [place] [address] Dr. Christoph Jeffery Creatinine [Mass/Vol] 0.68 mg/dL Critically low 0.70-1.30 [facility] Comment on above: Performed By: #### C MP #### [facility] [address] [address] [address] Christoph Jeffery EGFR-AF ARGENTINE >60 Normal >=60 [facility] Comment on above: Performed By: #### C MP #### [facility] [address] [place] [address] Dr. Christoph Jeffery EGFR-NON AF ARGENTINE >60 Normal >=60 [facility] Comment on above: Performed By: #### C MP #### [facility] [address] [place] [address] Dr. Christoph Jeffery Globulin (S) [Mass/Vol] 4.0 g/dL Normal [facility] Comment on above: Performed By: #### C MP #### [facility] [address] [place] [address] Dr. Christoph Jeffery Glucose [Mass/Vol] 106 mg/dL Normal 74-106 [facility] Comment on above: Performed By: #### C MP #### [facility] [address] [place] [address] Dr. Christoph Jeffery Potassium [Moles/Vol] 3.8 mmol/L Normal 3.5-5.1 [facility] Comment on above: Performed By: #### C MP #### [facility] [address] [place] [address] Dr. Christoph Jeffery Protein [Mass/Vol] 6.5 g/dL Normal 6.4-8.2 [facility] Comment on above: Performed By: #### C MP #### [facility] [address] [place] [address] Dr. Christoph Jeffery Sodium [Moles/Vol] 135 mmol/L Critically low 136-145 [facility] Comment on above: Performed By: #### C MP #### [facility] [address] [place], [place] [address] Dr. Christoph Jeffery Urea nitrogen [Mass/Vol] 4.0 mg/dL Critically low 7.0-18.0 [facility] Comment on above: Performed By: #### C MP #### [facility] [address] [place], [place] [address] Dr. Christoph Jeffery Urea nitrogen/Creatinin e [Mass ratio] 5.9 mg/mg Normal [facility] Comment on above: Performed By: #### C MP #### [facility] [address] [place], [place] [address] Dr. Christoph Jeffery Vital Signs Date Time Vital Sign Value Performing Clinician Govindi seemay 02-09-2025 14:03-0400 Body height 180.3 cm Karen Lowe PA Work Phone: [facility] 02-09-2025 14:03-0400 Body mass index (BMI) [Ratio] 26.08 kg/m2 Karen Lowe PA Work Phone: [facility] 02-09-2025 14:03-0400 Body weight 84.82 kg Karen Lowe PA Work Phone: [facility] 02-09-2025 14:03-0400 Diastolic blood pressure 72 mm[Hg] Karen Lowe PA Work Phone: [facility] 02-09-2025 14:03-0400 Systolic blood pressure 110 mm[Hg] Karen Lowe PA Work Phone: [facility] 01-08-2025 10:52-0400 Body height 180.3 cm Karen Lowe PA Work Phone: [facility] 01-08-2025 10:52-0400 Body mass index (BMI) [Ratio] 26.08 kg/m2 Karen Lowe PA Work Phone: [facility] 01-08-2025 10:52-0400 Body weight 84.82 kg Karen Lowe PA Work Phone: [facility] 01-08-2025 10:52-0400 Diastolic blood pressure 72 mm[Hg] Karen Lowe PA Work Phone: [facility] 01-08-2025 10:52-0400 Systolic blood pressure 110 mm[Hg] Karen Lowe PA Work Phone: [facility] 09-17-2024 14:19-0500 Body height 180.3 cm Karen Lowe PA Work Phone: [facility] 09-17-2024 14:19-0500 Body mass index (BMI) [Ratio] 28.03 kg/m2 Karen Lowe PA Work Phone: [facility] 09-17-2024 14:19-0500 Body weight 91.17 kg Karen Lowe PA Work Phone: [facility] 09-17-2024 14:19-0500 Diastolic blood pressure 78 mm[Hg] Karen Lowe PA Work Phone: [facility] 09-17-2024 14:19-0500 Systolic blood pressure 118 mm[Hg] Karen Lowe PA Work Phone: [facility] 07-24-2024 10:39-0400 Body height 180.3 cm Karen Lowe PA Work Phone: [facility] 07-24-2024 10:39-0400 Diastolic blood pressure 86 mm[Hg] Karen Lowe PA Work Phone: [facility] 07-24-2024 10:39-0400 Systolic blood pressure 134 mm[Hg] Karen Lowe PA Work Phone: [facility] 06-24-2024 13:33-0400 Body height 180.3 cm Karen Lowe PA Work Phone: [facility] 06-24-2024 13:33-0400 Body mass index (BMI) [Ratio] 28.17 kg/m2 Karen Lowe PA Work Phone: [facility] 06-24-2024 13:33-0400 Body weight 91.63 kg Karen Lowe PA Work Phone: [facility] 06-24-2024 13:33-0400 Diastolic blood pressure 78 mm[Hg] Karen Lowe PA Work Phone: [facility] 06-24-2024 13:33-0400 Systolic blood pressure 110 mm[Hg] Karen Lowe PA Work Phone: [facility] Encounters Encounter Date Encounter Type Care Provider Facility Start: 03-12-2025 End: 03-12-2025 ambulatory KAREN LOWE Not Available Start: 02-09-2025 End: 02-09-2025 Office outpatient visit 25 minutes Karen Lowe PA Work Phone: [facility] Comment on above: Anxiety and depressi on (CMS/HCC) (Primary Dx); Polyneuropathy; Seizure (CMS/HCC); Sensory ataxia Start: 02-09-2025 End: 02-09-2025 ambulatory KAREN LOWE Not Available Start: 02-09-2025 End: 02-09-2025 Bamboo flowsheet Karen Lowe PA Work Phone: [facility] Start: 02-09-2025 End: 02-09-2025 Bamboo flowsheet Karen Lowe PA Work Phone: [facility] Start: 01-08-2025 End: 01-08-2025 Office outpatient visit 15 minutes Karen Lowe PA Work Phone: [facility] Comment on above: Tremor (Primary Dx); Polyneuropathy; Seizure (CMS/HCC); Lumbosacral radiculopathy Start: 01-08-2025 End: 01-08-2025 ambulatory KAREN LOWE Not Available Start: 12-03-2024 End: 12-04-2024 Telephone encounter Sharri [facility] Start: 10-23-2024 End: 10-23-2024 Bamboo flowsheet Ethan Baeza HUMAN RESOURCES DESIGNATE Work Phone: [facility] Start: 10-23-2024 End: 10-23-2024 Bamboo flowsheet Ethan Baeza HUMAN RESOURCES DESIGNATE Work Phone: [facility] Start: 10-23-2024 End: 10-23-2024 Office outpatient visit 15 minutes Ethan Baeza HUMAN RESOURCES DESIGNATE Work Phone: [facility] Comment on above: Lateral epicondyliti s, left elbow (Primary Dx); Left elbow pain Start: 10-23-2024 End: 10-23-2024 ambulatory ETHAN BAEZA Not Available Start: 09-17-2024 End: 09-17-2024 Office outpatient visit 25 minutes Karen Lowe PA Work Phone: [facility] Comment on above: Polyneuropathy (Prim rox Dx); Seizure (CMS/HCC); Tremor; Sensory ataxia Start: 09-17-2024 End: 09-17-2024 ambulatory KAREN LOWE Not Available Start: 09-17-2024 End: 09-17-2024 Bamboo flowsheet Karen Lowe PA Work Phone: [facility] Start: 09-17-2024 End: 09-17-2024 Bamboo flowsheet Karen Lowe PA Work Phone: [facility] Start: 08-13-2024 End: 08-13-2024 ambulatory KAREN LOWE Not Available Start: 07-24-2024 End: 07-24-2024 Bamboo flowsheet Karen Lowe PA Work Phone: [facility] Start: 07-24-2024 End: 07-24-2024 Bamboo flowsheet Karen Lowe PA Work Phone: [facility] Start: 07-24-2024 End: 07-24-2024 Office outpatient visit 25 minutes Karen Lowe PA [facility] Comment on above: Seizure (CMS/HCC) (P rimary Dx); Polyneuropathy; Tremor; Insomnia, unspecified type Start: 07-24-2024 End: 07-24-2024 ambulatory KAREN LOWE Not Available Start: 06-24-2024 End: 06-24-2024 Bamboo flowsheet Karen Lowe PA Work Phone: [facility] Start: 06-24-2024 End: 06-24-2024 Bamboo flowsheet Karen PRASAD Work Phone: [facility] [address] [facility] Start: 06-24-2024 End: 06-24-2024 Office outpatient visit 25 minutes Karen PRASAD Work Phone: [facility] [address] Comment on above: Sensory ataxia (Prim rox Dx); Seizure (CMS/HCC); Tremor; Lumbosacral radiculopathy; Polyneuropathy; Insomnia, unspecified type Start: 06-24-2024 End: 06-24-2024 ambulatory KAREN VICTORIA Not Available Start: 06-17-2024 End: 06-18-2024 Telephone encounter Javi Norman MA [facility] Start: 09-17-2023 End: 09-22-2023 Evaluation and management of inpatient [facility] Start: 02-03-2023 End: 02-03-2023 ambulatory [facility] Facility:[facility] Start: 09-04-2022 End: 09-04-2022 ambulatory [facility] Facility: Plan of Treatment Date Care Activity Detail Author Start: 05-04-2025 End: 05-04-2025 Patient encounter procedure 05/04/2025 11:00 AM EDT Office Visit [facility] [address] [place] [phone] Karen Victoria PA [address] [place] [address] [facility] Start: 03-12-2025 End: 03-12-2025 Patient encounter procedure 03/12/2025 11:00 AM EDT Office Visit [facility] [address] [place] [phone] Karen Victoria PA [address] [place] [address] [facility] Start: 02-09-2025 End: 02-09-2025 Patient encounter procedure 02/09/2025 2:20 PM EDT Office Visit [facility] [address] [place] [phone] Karen Vitcoria PA [address] [place] [address] Arrived [facility] Comment on above: Arrived Start: 01-08-2025 End: 01-08-2025 Patient encounter procedure [facility] [place] [facility] Start: 12-04-2024 End: 12-04-2025 Creatinine [Mass/volume] in Serum or Plasma Creatinine, Serum Lab Routine Dizziness Expected: 12/04/2024 (Approximate), Expires: 12/04/2025 [facility] Comment on above: Expected: 12/04/2024 (Approximate), Expires: 12/04/2025 Start: 12-04-2024 End: 12-04-2025 CT Head WO contrast CT head wo IV contrast Imaging Routine Dizziness Expected: 12/04/2024 (Approximate), Expires: 12/04/2025 [facility] Work Phone: Comment on above: Expected: 12/04/2024 (Approximate), Expires: 12/04/2025 Start: 12-04-2024 End: 12-04-2025 CTA Head vessels WO and W contrast IV CT angiogram head Imaging Routine Dizziness Expected: 12/04/2024, Expires: 12/04/2025 [facility] Comment on above: Expected: 12/04/2024 , Expires: 12/04/2025 Start: 12-04-2024 End: 12-04-2025 CTA Neck vessels WO and W contrast IV CT angiogram neck Imaging Routine Dizziness Expected: 12/04/2024 (Approximate), Expires: 12/04/2025 [facility] Comment on above: Expected: 12/04/2024 (Approximate), Expires: 12/04/2025 Start: 11-13-2024 End: 11-13-2024 Patient encounter procedure 11/13/2024 1:15 PM EST Office Visit [facility] [address] [place] [address] Ethan Baeza, HUMAN RESOURCES DESIGNATE [address] [place] [address] [facility] Start: 10-23-2024 End: 10-23-2024 Patient encounter procedure 10/23/2024 1:15 PM EST Office Visit [facility] [address] [place] [phone] Ethan Baeza, LAURA [address] [place], [place] [phone] [facility] Comment on above: Arrived Start: 09-17-2024 End: 09-17-2024 Patient encounter procedure [facility] [address] Comment on above: Arrived Start: 08-13-2024 End: 08-13-2024 Patient encounter procedure 08/13/2024 12:00 PM EDT [facility] [address] [place] [phone] [facility] [place] [address] [facility] Start: 07-24-2024 End: 07-24-2025 EEG 2 Hour Routine EEG 2 Hour Routine Neurology Routine Seizure (CMS/HCC) Expected: 07/24/2024 (Approximate), Expires: 07/24/2025 [facility] Work Phone: Comment on above: Expected: 07/24/2024 (Approximate), Expires: 07/24/2025 Start: 07-24-2024 End: 07-24-2024 Patient encounter procedure [facility] [address] Comment on above: Arrived Start: 06-24-2024 End: 06-24-2024 Patient encounter procedure [facility] [place] [address] Comment on above: Sensory ataxia (Prim rox Dx); Seizure (CMS/HCC); Tremor; Closed head injury, sequela; Lumbosacral radiculopathy; Polyneuropathy; Insomnia, unspecified type Start: 06-24-2024 End: 06-24-2025 Levetiracetam level Levetiracetam level Lab Routine Seizure (CMS/HCC) Expected: 06/24/2024 (Approximate), Expires: 06/24/2025 [facility] Work Phone: Comment on above: Expected: 06/24/2024 (Approximate), Expires: 06/24/2025 Payers Date Payer Category Payer Medicare (Managed Care) Z[employer]HRAA Giron [employer] [id number] 2024 Medicare [id number] 2024 Medicaid [place] [id number] 2024 Medicaid [id number] 2021 Medicare [id number] 2021 Medicare [id number] 1961 Unknown [id number] [id number]. 593 1961 Unknown [id number] 2.16.840.1.182409.3.579.2. 732 1961 Unknown [id number] [id number]. 175 1961 Unknown [id number] 2.16.840.1.599149.3.579.2. 9 1961 Unknown [id number] 2.16.840.1.966217.3.579.2. 9 1961 Unknown [id number] 2.16.840.1.609772.3.579.2. 1258 1961 Unknown [id number] 2.16.840.1.728411.3.579.2. 1258 1961 Unknown [id number] 2.16.840.1.009939.3.579.2. 1258 1961 Unknown [id number] 2.16.840.1.284210.3.579.2. 9 1961 Unknown [id number] 2.16.840.1.106870.3.579.2. 1258 1961 Unknown [id number] [id number]. 1259 Social History Date Type Detail Facility Start: 07-02-2023 Tobacco smoking stat [facility]smoker [facility] History of tobacco use Current smoker [facility] History of tobacco use Cigarette Smoker [facility] Start: 06-24-2024 End: 02-09-2025 Alcoholic beverage intake Ex-drinker (finding) [facility] Start: 06-24-2024 End: 02-09-2025 History of Social function [facility] Start: 06-24-2024 End: 02-09-2025 Tobacco use panel [facility] Start: 07-02-2023 Alcohol Comment caffeine intak e: more than 4 cups per day. [facility] Start: 1960 Sex assigned at Not on file [facility] Medical Equipment Procedure Code Equipment Code Equipment Origin al Text Equipment Identifier Dates Start: 06-18-2023 Clinical Notes 06-17-2024 to 02-09-2025 OSMAR Moore - 02/09/2025 2:20 PM EDTTelephone Encounter - OSMAR Moore - 12/04/2024 1:32 PM ESTTelephone Encounter - OSMAR Moore - 12/04/2024 1:32 PM EST Note Date & Type Note Facility 02-09-2025 History of Presen t illness Narrative Images from the original note were not included. Subjective Michael Chen is a 65 y.o. year old male Chief Complaint Patient presents with Seizures polyneuropathy Past Medical History: Diagnosis Date Anemia Arthritis Asthma Bleeding ulcer 2 Depression (CMS/HCC) HTN (hypertension) (CMS/HCC) Seizure disorder (CMS/HCC) Past Surgical History: Procedure Laterality Date CT ANGIOGRAM HEART CORONARY 12/02/2022 CT ANGIOGRAM TAVR 12/02/2022 CT ANGIOGRAM HEART CORONARY 04/15/2022 CT ANGIOGRAM TAVR 04/15/2022 CT ANGIOGRAM HEART CORONARY 01/08/2021 CT ANGIOGRAM TAVR 01/08/2021 ILIAC ARTERY STENT Left 43 years old LA KNEE SCOPE,CLEAN/DRAIN Right x2 LA LAP,INGUINAL HERNIA REPR,INITIAL Right Family History Problem Relation Name Age of Onset Other (anger issues) Father Mental illness Father Social History Tobacco Use Smoking status: Former Types: Cigarettes Smokeless tobacco: Not on file Substance Use Topics Alcohol use: Not Currently Comment: caffeine intake: more than 4 cups per day. Medication Documentation Review Audit Reviewed by Rosana Pringle MA (Rod Drawer) on 02/09/25 at 1404 Medication Order Taking? Sig Documenting Provider Last Dose Status calcium 200 MG tablet [id number] No Calcium Idalia Lua MD Not Taking Active Calcium Carbonate Antacid (CALCIUM CARBONATE PO) [id number] No Take 1 capsule by mouth in the morning. Idalia Lua MD Not Taking Active clopidogrel (Plavix) 75 MG tablet [id number] No 1 (one) time each day at the same time. Idalia Lua MD Not Taking Active cyanocobalamin (Vitamin B-12) 1000 MCG tablet [id number] No Take 1,000 mcg by mouth in the morning. Idalia ProviderMD Not Taking Active famotidine (Pepcid) 40 MG tablet [id number] No take 1 tablet by mouth at bedtime Oral for 90 Historical MD Chanell Not Taking Active gabapentin (Neurontin) 100 MG capsule [id number] Take 2 capsules (200 mg) by mouth in the morning and 2 capsules (200 mg) before bedtime. Due 03/29/25. OSMAR Moore Active Glucose Blood (Blood Glucose Test) strip [id number] 1 Strip Used Once daily to check sugar for 90 days Historical ProviderMD Active lamoTRIgine (LaMICtal) 25 MG tablet [id number] 3 tabs PO BID OSMAR Moore Active Lancets (OneTouch Delica Plus [id number]) [facility] [id number] use 1 LANCET to TEST BLOOD SUGAR once daily Historical MD Chanell Active levETIRAcetam (Keppra) 1000 MG tablet [id number] Take 1 tablet (1,000 mg) by mouth in the morning and 1 tablet (1,000 mg) before bedtime. OSMAR Moore Active levETIRAcetam (Keppra) 250 MG tablet [id number] Take 1 tablet (250 mg) by mouth in the morning and 1 tablet (250 mg) before bedtime. In addition to 1000mg BID. OSMAR Moore Active metoprolol succinate XL (Toprol-XL) 25 MG 24 hr tablet [id number] 1 (one) time each day at the same time. Historical ProviderMD Active metoprolol tartrate (Lopressor) 25 MG tablet [id number] Take 25 mg by mouth in the morning and 25 mg before bedtime. Ethan Baeza, LAURA Active omega-3 (FISH OIL) 300 MG capsule [id number] No Fish Oil Historical ProviderMD Not Taking Active tiZANidine (Zanaflex) 4 MG tablet [id number] No every 12 (twelve) hours. Idalia Lua MD Not Taking Active traZODone (Desyrel) 50 MG tablet [id number] No 1 (one) time each day at the same time. Historical ProviderMD Not Taking Active HPI Ataxia/Polyneuropathy -he is on Gabapentin 200mg BID -numbness in his feet -burning pain and pins and needles -radiates up his legs -he states this is worsening -he ambulates with scooter -he uses walker at home -he denies any recent falls Tremor -located in hands and legs -tremors comes and goes -he has more tremors with stress and anxiety -not as bad recently Seizures -on Lamictal and Keppra -denies missed doses -denies any recent seizures -he had 1 episode last week -sitting talking to a friend and he zoned out -could not move -he denies any LOC -he notes that he is having more mood changes -depression and anxiety -he notes he was on Paxil in the past -he wonders if this is influencing his symptoms ROS Review of Systems Constitutional: Negative. Respiratory: Negative for cough and shortness of breath. Cardiovascular: Negative for chest pain and palpitations. Musculoskeletal: Positive for gait problem. Negative for back pain. Neurological: Positive for tremors, seizures and numbness. Negative for syncope. Psychiatric/Behavioral: Negative for confusion. The patient is nervous/anxious. Objective Visit Vitals BP 110/72 Ht 5' 11 Wt 187 lb BMI 26.08 kg/m Smoking Status Former BSA 2.06 m Heart-RRR Neurological Exam Mental Status Awake, alert and oriented to person, place and time. Oriented to person, place and time. Recent and remote memory are intact. Speech is normal. Language is fluent with no aphasia. Attention and concentration are normal. Cranial Nerves CN III, IV, : Extraocular movements intact bilaterally. Normal lids and orbits bilaterally. Pupils equal round and reactive to light bilaterally. CN VII: Right: There is no facial weakness. Left: There is no facial weakness. CN VIII: Hearing is normal. CN XI: Shoulder shrug strength is normal. CN XII: Tongue midline without atrophy or fasciculations. Sensory Light touch abnormality: Impaired to bilateral lower extremities. Gait In a power scooter on exam today. Motor Examination RUE Strength deltoid, biceps, triceps, wrist extensors, wrist extensors, wrist flexor, dust collector attendant strength 5/5. LUE Strength deltoid, biceps, triceps, wrist extensors, wrist extensors, wrist flexor, dust collector attendant strength 5/5. RLE Strength illopsoas, quadriceps, tibialis anterior, and gastrocnemius strength 5/5. LLE Strength illopsoas, quadriceps, tibialis anterior, and gastrocnemius strength 5/5. Tone Normal tone x4 extremities. Reflexes: RUE biceps reflex 2, LUE biceps reflex 2, RLE knee reflex 0, LLE knee reflex 0, Assessment and Plan Sensory ataxia He did suffer a fall late 2018 due to his legs buckling causing a severe hematoma on the left side of his forehead. MRI of his brain 04/2018 revealed age related atrophy with microvascular ischemic changes. EMG of the lower extremities revealed mild bilateral S1 radiculopathies more pronounced on the left. MRI of the cervical spine revealed disc extrusion with mild caudal migration at C5-6 causing severe narrowing of the right neural foramen. The cord was normal in signal intensity without post contrast enhancement. MRI of the thoracic spine revealed disc protrusion causing mild canal stenosis with mild mass effect on the anterior aspect of the cord. No cord signal abnormalities were note. Concern for primary progressive MS but clinically he does not yet meet criteria for diagnosis. LP revealed only myelin basic protein elevation. IgG synthesis was normal. There were zero oligoclonal bands. BLE EMG from 07/2019 revealed severe polyneuropathy. He continues with balance difficulty and is in a wheelchair. He is further debilitated. He is only walking to transfer to the toilet now. He did not complete PT and was in shelter. MOCA 01/10/2023 is 28/30. He has a power scooter and also 2 walkers to use in the home. No falls since his last visit. Seizure (CMS/HCC) He is taking Keppra, previously prescribed by his PCP and this was previously followed by his previous PCP. He did have breakthrough seizure per review of [facility] records 12/08/2022 that was attributed to severe electrolyte disturbances. EEG there did not show any seizure activity. He was continued on current Keppra dosing but continued to drink ETOH and stop abruptly which his partner notes was the likely cuplrit to breakthrough events. He was admitted to [facility] facilities in January 2023 and February 2023. He also had an LP after discharge due to abnormal MRI brain. Keppra was increased. His last seizure was September 2023. He notes that he has stopped drinking He is having freezing episodes which is partner state appear to behave like a panic attack but the patient denies feeling panicked or stressed when these come one. These are intermittent and sometimes occur 5-6 times per day. He denies further symptoms since Lamictal was increased. Keppra level 07/15/24 was 37.8. 2 hour EEG 08/13/24 was normal. He denies events. Tremor He has tremors of the extremities that started around 20 years ago that persist. He has been on primidone 50mg 1/2-1 tab PO QHS in the past. He takes Zanaflex for muscle spasms and has improved symptoms with this. He is on gabapentin which can also help with symptoms. He denies worsening tremor. Lumbosacral radiculopathy MRI of the lumbar spine revealed degenerative disc disease. EMG 04/2018 revealed bilateral S1 radiculopathies. BLE EMG 07/2019 revealed polyneuropathy severe in degree and predominately affecting sensory fibers. He has benefit with zanaflex. He is on gabapentin 400mg po bid but was taking both at night, which helped, but this was discontinued. He was titrated back to 600mg PO QHS and has had some benefit and is tolerating but had went without this for quite some time. He remains on gabapentin and he denies falls. Polyneuropathy Continues with symptoms but lessened with current medications. He is wheelchair bound due to his neuropathic symptoms and sensory deficits. He denies falls. Insomnia A PSG was discussed as he is not sleeping well. This was done 10 years ago and is sounds like he had ROMINA and did not treat this. Anxiety/depression New- the patient note that his mood has been more labile. He denies worsening mood with Keppra but has been on this for a while . He states that he feels anxious and then depressed. He was on Paxil in the past. He is wondering if these changes are influencing his history of seizures. Plan: 1. Trial Lexapro 10mg PO daily for mood. 2. I counseled the patient on the side effects of medications. 3. Continue Lamictal 75mg PO BID for seizure like episodes/mood. 4. Continue gabapentin 100mg 2 tabs PO BID for neuropathic pain. 5. Continue Keppra 1250mg PO BID for seizure prevention 6. I counseled the patient on fall precautions. I discussed the high risk of trauma and debility associated with falls. He verbalized understanding. Follow up 6 weeks documented in this encounter [facility] 12-04-2024 Telephone encount er Note Orders placed. [facility] 12-04-2024 Miscellaneous Notes Formattin g of this note might be different from the original. Orders placed. Patient return call. He is willing to have imaging done at [facility] [place]. LM with the pt to cb. Spoke with the pt. He notes that he has had the dizziness only for the past few days and that it is still happening every 30-45 mins and lasts 5-10 mins. He was advised to go to the ED for evaluation, is apprehensive because he doesn't like the ED. He will go if it happens again though. Patient calls stating he has been having really bad dizzy spells the past 3 days. He states they are coming and going about every 1/2 hour. He states he has to stop what he's doing and sit down for about 5-10 minutes and it goes away. He is asking if his medication should be increased. He states this is not normal for him. He denies any loss of consciousness or any recent illness. Please advise documented in this encounter [facility] 12-04-2024 Telephone encount er Note Patient return call. He is willing to have imaging done at [facility] [place]. [facility] 12-04-2024 Telephone encount er Note LM with the pt to cb. [facility] 12-04-2024 Telephone encount er Note Spoke with the pt. He notes that he has had the dizziness only for the past few days and that it is still happening every 30-45 mins and lasts 5-10 mins. He was advised to go to the ED for evaluation, is apprehensive because he doesn't like the ED. He will go if it happens again though. [facility] 12-03-2024 Telephone encount er Note Patient calls stating he has been having really bad dizzy spells the past 3 days. He states they are coming and going about every 1/2 hour. He states he has to stop what he's doing and sit down for about 5-10 minutes and it goes away. He is asking if his medication should be increased. He states this is not normal for him. He denies any loss of consciousness or any recent illness. Please advise [facility] 09-17-2024 History of Presen t illness Narrative Images from the original note were not included. Subjective Michael Chen is a 64 y.o. year old male Chief Complaint Patient presents with Gait Problem Seizures Tremors Past Medical History: Diagnosis Date Anemia Arthritis Asthma ([facility]/HCC) Bleeding ulcer 2 Depression ([facility]/HCC) HTN (hypertension) ([facility]/HCC) Seizure disorder ([facility]) Past Surgical History: Procedure Laterality Date CT ANGIOGRAM HEART CORONARY 12/02/2022 CT ANGIOGRAM TAVR 12/02/2022 CT ANGIOGRAM HEART CORONARY 04/15/2022 CT ANGIOGRAM TAVR 04/15/2022 CT ANGIOGRAM HEART CORONARY 01/08/2021 CT ANGIOGRAM TAVR 01/08/2021 ILIAC ARTERY STENT Left 43 years old LA KNEE SCOPE,CLEAN/DRAIN Right x2 LA LAP,INGUINAL HERNIA REPR,INITIAL Right Family History Problem Relation Name Age of Onset Other (anger issues) Father Mental illness Father Social History Tobacco Use Smoking status: Former Types: Cigarettes Smokeless tobacco: Not on file Substance Use Topics Alcohol use: Not Currently Comment: caffeine intake: more than 4 cups per day. Medication Documentation Review Audit Reviewed by Brittney England MA (Rod Drawer) on 09/17/24 at 1421 Medication Order Taking? Sig Documenting Provider Last Dose Status calcium 200 MG tablet [id number] No Calcium Historical ProviderMD Not Taking Active Calcium Carbonate Antacid (CALCIUM CARBONATE PO) [id number] No Take 1 capsule by mouth in the morning. Historical ProviderMD Not Taking Active clopidogrel (Plavix) 75 MG tablet [id number] No 1 (one) time each day at the same time. Historical ProviderMD Not Taking Active cyanocobalamin (Vitamin B-12) 1000 MCG tablet [id number] No Take 1,000 mcg by mouth in the morning. Historical Provider, Not Taking Active famotidine (Pepcid) 40 MG tablet [id number] No take 1 tablet by mouth at bedtime Oral for 90 Historical ProviderMD Not Taking Active gabapentin (Neurontin) 100 MG capsule [id number] Take 2 capsules (200 mg) by mouth in the morning and 2 capsules (200 mg) before bedtime. Due 07/08/24. OSMAR Moore 08/23/24 2359 Glucose Blood (Blood Glucose Test) strip [id number] 1 Strip Used Once daily to check sugar for 90 days Historical ProviderMD Active lamoTRIgine (LaMICtal) 25 MG tablet [id number] Take 1 tablet (25 mg) by mouth in the morning and 1 tablet (25 mg) before bedtime. 25mg PO daily for 7 days, then 25mg PO BID for 7 days, then 1 tab PO QAM and 2 tabs PO at bedtime for 7 days, then 2 tabs PO BID thereafter. OSMAR Moore 08/23/24 2359 Lancets (OneTouch Delica Plus [id number]) [facility] [id number] use 1 LANCET to TEST BLOOD SUGAR once daily Historical ProviderMD Active levETIRAcetam (Keppra) 1000 MG tablet [id number] Take 1 tablet (1,000 mg) by mouth in the morning and 1 tablet (1,000 mg) before bedtime. OSMAR Moore Active levETIRAcetam (Keppra) 250 MG tablet [id number] Take 1 tablet (250 mg) by mouth in the morning and 1 tablet (250 mg) before bedtime. In addition to 1000mg BID. OSMAR Moore Active metoprolol succinate XL (Toprol-XL) 25 MG 24 hr tablet [id number] 1 (one) time each day at the same time. Historical Provider, Active omega-3 (FISH OIL) 300 MG capsule [id number] No Fish Oil Historical ProviderMD Not Taking Active tiZANidine (Zanaflex) 4 MG tablet [id number] No every 12 (twelve) hours. Historical ProviderMD Not Taking Active traZODone (Desyrel) 50 MG tablet [id number] No 1 (one) time each day at the same time. Historical ProviderMD Not Taking Active HPI Ataxia/Polyneuropathy -he is on Gabapentin 200mg BID -numbness in his feet -burning pain and pins and needles -radiates up his legs -he states toes are curled under -he ambulates with scooter -he uses walker at home -states that heel in left foot, bilateral hips and knees are worse -he denies any recent falls Tremor -located in hands and legs -tremors comes and goes -he has more tremors with stress and anxiety Seizures -here to review EEG -Started Lamictal last visit -denies side effects -2 episodes since starting medication -last one was last night -not as long in duration since starting lamictal -denies depression/anxiety -needs refill of lamictal ROS Review of Systems Constitutional: Negative. Respiratory: Negative for cough and shortness of breath. Cardiovascular: Negative for chest pain and palpitations. Musculoskeletal: Positive for gait problem. Negative for back pain. Neurological: Positive for tremors, seizures and numbness. Negative for syncope. Psychiatric/Behavioral: Negative for confusion. The patient is nervous/anxious. Objective Visit Vitals BP 118/78 (BP Location: Left arm, Patient Position: Sitting) Ht 5' 11 Wt 201 lb BMI 28.03 kg/m Smoking Status Former BSA 2.14 m Heart-RRR Neurological Exam Mental Status Awake, alert and oriented to person, place and time. Oriented to person, place and time. Recent and remote memory are intact. Speech is normal. Language is fluent with no aphasia. Attention and concentration are normal. Cranial Nerves CN III, IV, : Extraocular movements intact bilaterally. Normal lids and orbits bilaterally. Pupils equal round and reactive to light bilaterally. CN VII: Right: There is no facial weakness. Left: There is no facial weakness. CN VIII: Hearing is normal. CN XI: Shoulder shrug strength is normal. CN XII: Tongue midline without atrophy or fasciculations. Sensory Light touch abnormality: Impaired to bilateral lower extremities. Gait In a power scooter on exam today. Motor Examination RUE Strength deltoid, biceps, triceps, wrist extensors, wrist extensors, wrist flexor, dust collector attendant strength 5/5. LUE Strength deltoid, biceps, triceps, wrist extensors, wrist extensors, wrist flexor, dust collector attendant strength 5/5. RLE Strength illopsoas, quadriceps, tibialis anterior, and gastrocnemius strength 5/5. LLE Strength illopsoas, quadriceps, tibialis anterior, and gastrocnemius strength 5/5. Tone Normal tone x4 extremities. Reflexes: RUE biceps reflex 2, LUE biceps reflex 2, RLE knee reflex 0, LLE knee reflex 0, Assessment and Plan Sensory ataxia He did suffer a fall late 2018 due to his legs buckling causing a severe hematoma on the left side of his forehead. MRI of his brain 04/2018 revealed age related atrophy with microvascular ischemic changes. EMG of the lower extremities revealed mild bilateral S1 radiculopathies more pronounced on the left. MRI of the cervical spine revealed disc extrusion with mild caudal migration at C5-6 causing severe narrowing of the right neural foramen. The cord was normal in signal intensity without post contrast enhancement. MRI of the thoracic spine revealed disc protrusion causing mild canal stenosis with mild mass effect on the anterior aspect of the cord. No cord signal abnormalities were note. Concern for primary progressive MS but clinically he does not yet meet criteria for diagnosis. LP revealed only myelin basic protein elevation. IgG synthesis was normal. There were zero oligoclonal bands. BLE EMG from 07/2019 revealed severe polyneuropathy. He continues with balance difficulty and is in a wheelchair. He is further debilitated. He is only walking to transfer to the toilet now. He did not complete PT and was in shelter. MOCA 01/10/2023 is 28/30. He has a power scooter and also 2 walkers to use in the home. No falls since last visit. Seizure (CMS/HCC) He is taking Keppra, previously prescribed by his PCP and this was previously followed by his previous PCP. He did have breakthrough seizure per review of [facility] records 12/08/2022 that was attributed to severe electrolyte disturbances. EEG there did not show any seizure activity. He was continued on current Keppra dosing but continued to drink ETOH and stop abruptly which is partner notes was the likely cuplrit to breakthrough events. He was admitted to [facility] facilities in January 2023 and February 2023. He also had an LP after discharge due to abnormal MRI brain. Keppra was increased. His last seizure was September 2023. He notes that he has stopped drinking and denies breakthrough events. He is having freezing episodes which is partner state appear to behave like a panic attack but the patient denies feeling panicked or stressed when these come one. These are intermittent and sometimes occur 5-6 times per day. Keppra level 07/15/24 was 37.8. 2 hour EEG 08/13/24 was normal. He has had lessening symptoms with Lamictal start and we will adjust slightly to see if this benefits him. Tremor He has tremors of the extremities that started around 20 years ago that persist. He has been on primidone 50mg 1/2-1 tab PO QHS in the past. He takes Zanaflex for muscle spasms and has improved symptoms with this. He is on gabapentin which can also help with symptoms. No worsening tremor. Lumbosacral radiculopathy MRI of the lumbar spine revealed degenerative disc disease. EMG 04/2018 revealed bilateral S1 radiculopathies. BLE EMG 07/2019 revealed polyneuropathy severe in degree and predominately affecting sensory fibers. He has benefit with zanaflex. He is on gabapentin 400mg po bid but was taking both at night, which helped, but this was discontinued. He was titrated back to 600mg PO QHS and has had some benefit and is tolerating but had went without this for quite some time. He remains on gabapentin. Polyneuropathy Continues with symptoms but lessened with current medications. He is wheelchair bound due to his neuropathic symptoms and sensory deficits. Insomnia A PSG was discussed as he is not sleeping well. This was done 10 years ago and is sounds like he had ROMINA and did not treat this. He does not have a good sleep environment. Plan: 1. 2 hr EEG reviewed with the patient. 2. Adjust Lamictal to 75mg PO BID for seizure like episodes/mood. 3.I counseled the patient on the side effects of medications. 4. Continue gabapentin 100mg 2 tabs PO BID for neuropathic pain. 5. Continue Keppra 1250mg PO BID for seizure prevention 6. I counseled the patient on fall precautions. I discussed the high risk of trauma and debility associated with falls. He verbalized understanding. Follow up 2 months documented in this encounter [facility] 08-22-2024 History of Presen t illness Narrative Images from the original note were not included. HISTORY OF PRESENT ILLNESS: Michael Chen is an 64 y.o. @ male. (EST W/MARTÍNEZ, NEW PROBLEM) [facility] REFERRAL. LT ELBOW PAIN SINCE ~MID 08/2024, WHEN HE WENT TO RING OUT A MOP. TX BY PCP 09/25 WITH REFERRAL. SWELLING ABOUT A WEEK AGO. SWELLING IS LOCATED ON THE OUTER PART OF THE ELBOW AT THE TOP. UNABLE TO LIFT THINGS THAT ARE HEAVY. PT GAVE EXAMPLE OF COOKWARE. TAKING ADVIL PRN. NOT USING ANY CREAMS. NO ICE OR HEAT IS BEING USED. STARTED A COUPLE OF WEEKS AGO. DOES WAKE AT NIGHT WHEN SWOLLEN. DENIES POPPING OR GRINDING. DENIES N/T. 7-8/10 ON PAIN SCALE. HURTS BAD ENOUGH THAT HE HAS ISSUES PICKING UP A GLASS OF WATER. PT IS NOT USING BRACE FOR SUPPORT. DENIES HAVING ANY STUDIES DONE. DENIES HAVING ANY SURGERIES. WHEN PT WAS AN ADOLESCENT HE BROKE THE ARM. PT IS LEFT HANDED ALLERGIES: Allergies Allergen Reactions Nickel Unknown Sulfanilamide Unknown Latex Other and Rash Penicillins GI intolerance, Rash and Unknown HOME MEDICATIONS: Current Outpatient Medications Medication Instructions calcium 200 MG tablet Calcium Calcium Carbonate Antacid (CALCIUM CARBONATE PO) 1 capsule, Oral, Daily RT clopidogrel (Plavix) 75 MG tablet Every 24 hours cyanocobalamin (VITAMIN B-12) 1,000 mcg, Oral, Daily RT famotidine (Pepcid) 40 MG tablet take 1 tablet by mouth at bedtime Oral for 90 gabapentin (NEURONTIN) 200 mg, Oral, 2 times daily, Due 07/08/24 Glucose Blood (Blood Glucose Test) strip 1 Strip Used Once daily to check sugar for 90 days lamoTRIgine (LaMICtal) 25 MG tablet 3 tabs PO BID Lancets (OneTouch Delica Plus [id number]) [facility] use 1 LANCET to TEST BLOOD SUGAR once daily levETIRAcetam (KEPPRA) 250 mg, Oral, 2 times daily, In addition to 1000mg BID levETIRAcetam (KEPPRA) 1,000 mg, Oral, 2 times daily metoprolol succinate XL (Toprol-XL) 25 MG 24 hr tablet Every 24 hours metoprolol tartrate (LOPRESSOR) 25 mg, 2 times daily omega-3 (FISH OIL) 300 MG capsule Fish Oil tiZANidine (Zanaflex) 4 MG tablet Every 12 hours traZODone (Desyrel) 50 MG tablet Every 24 hours REVIEW OF SYSTEMS: General: Denies fever, fatigue or weight loss Skin: Denies rash, sores or skin changes Eyes: Denies visual disturbance or pain GI: Denies indigestion or abdominal pain Neuro: Denies numbness or tingling, denies new onset paralysis Musculoskeletal: ( see note) PHYSICAL EXAM: Elbow Musculoskeletal Exam Inspection Left Left elbow inspection is normal. Ecchymosis: none Swelling: lateral Deformity: none Palpation Left Crepitus (radiocapitellar): none Tenderness: present Medial/flexor origin: none Lateral/extensor origin: moderate Posterior-olecranon: none MCL: none LCL: none Range of Motion Left Left elbow range of motion is normal. Active Extension: 0 Passive Extension: 0 Active Flexion: 140 Passive Flexion: 140 Active Pronation: 90 Passive Pronation: 90 Active Supination: 90 Passive Supination: 90 Strength Left Left elbow strength is normal. Extension: 5/5. Extension is affected by pain. Flexion: 5/5. Pronation: 5/5. Supination: 5/5. Supination is affected by pain. Finger abduction: 5/5. Medicare Contact Specialist strength: 5/5. Neurovascular Left Left elbow nerve sensation is normal. Radial pulse: normal Capillary refill: <3 sec Ulnar nerve sensory distribution: normal Median nerve sensory distribution: normal Radial nerve sensory distribution: normal Special Tests Left Neurological Signs Pain with resisted pronation: negative Pain with resisted supination: positive Pain with resisted long finger: positive Epicondylitis Signs Pain with resisted wrist flexion: negative Pain with resisted wrist extension: positive Special Signs Pain with terminal extension: positive General Constitutional: appears stated age Lymphadenopathy: none Vitals: There is no height or weight on file to calculate BMI. IMAGING: ASSESSMENT: ICD-10-CM 1. Lateral epicondylitis, left elbow M77.12 2. Left elbow pain M25.522 Procedures PLAN: I reviewed exam findings with the patient and discussed treatment options, answered questions. I recommend that patient use tennis elbow brace, ibuprofen, ice and stretching at this time. Patient was dispensed tennis elbow brace in the office today and demonstrated understanding on how to properly apply brace. He will follow up in 3-4 weeks for RCK. If still painful consider injection. Questions answered in laymen terms at the bedside. The diagnosis, home exercise plan and any ongoing restrictions/ recommendations reviewed. If unable to be reached in office, I recommend evaluation at nearest Emergency Room if any symptoms worsened or new symptoms develop for requiring urgent evaluation. Ethan Baeza TEST ANALYST-WEB FEEDER documented in this encounter [facility] 06-24-2024 History of Presen t illness Narrative Images from the original note were not included. Subjective Michael Chen is a 64 y.o. year old male Chief Complaint Patient presents with polyneuropathy Tremors Seizures Past Medical History: Diagnosis Date Anemia Arthritis Asthma (CMS/HCC) Bleeding ulcer 2 Depression (CMS/HCC) HTN (hypertension) (CMS/HCC) Seizure disorder (CMS/HCC) Past Surgical History: Procedure Laterality Date CT ANGIOGRAM HEART CORONARY 12/02/2022 CT ANGIOGRAM TAVR 12/02/2022 CT ANGIOGRAM HEART CORONARY 04/15/2022 CT ANGIOGRAM TAVR 04/15/2022 CT ANGIOGRAM HEART CORONARY 01/08/2021 CT ANGIOGRAM TAVR 01/08/2021 ILIAC ARTERY STENT Left 43 years old LA KNEE SCOPE,CLEAN/DRAIN Right x2 LA LAP,INGUINAL HERNIA REPR,INITIAL Right Family History Problem Relation Name Age of Onset Other (anger issues) Father Mental illness Father Social History Tobacco Use Smoking status: Former Types: Cigarettes Smokeless tobacco: Not on file Substance Use Topics Alcohol use: Not Currently Comment: caffeine intake: more than 4 cups per day. Medication Documentation Review Audit Reviewed by Rosana Pringle MA (Rod Drawer) on 06/24/24 at 1334 Medication Order Taking? Sig Documenting Provider Last Dose Status calcium 200 MG tablet [id number] Calcium Historical Provider, Active Calcium Carbonate Antacid (CALCIUM CARBONATE PO) [id number] Take 1 capsule by mouth in the morning. Historical Provider, MD Active clopidogrel (Plavix) 75 MG tablet [id number] 1 (one) time each day at the same time. Idalia Lua MD Active cyanocobalamin (Vitamin B-12) 1000 MCG tablet [id number] Take 1,000 mcg by mouth in the morning. Idalia Lua MD Active famotidine (Pepcid) 40 MG tablet [id number] take 1 tablet by mouth at bedtime Oral for 90 Idalia Lua MD Active gabapentin (Neurontin) 100 MG capsule [id number] 1 tab PO QAM And 2 tabs PO QHS OSMAR Moore Active Discontinued 06/18/24 0829 Glucose Blood (Blood Glucose Test) strip [id number] 1 Strip Used Once daily to check sugar for 90 days Idalia Lua MD Active Lancets (UNXTouch Delica Plus [id number]) [facility] [id number] use 1 LANCET to TEST BLOOD SUGAR once daily Idalia Lau MD Active levETIRAcetam (Keppra) 250 MG tablet [id number] Take 1,250 mg by mouth in the morning and 1,250 mg in the evening. Idalia Lua MD Active metoprolol succinate XL (Toprol-XL) 25 MG 24 hr tablet [id number] 1 (one) time each day at the same time. Idalia Lua MD Active omega-3 (FISH OIL) 300 MG capsule [id number] Fish Oil Idalia Lua MD Active tiZANidine (Zanaflex) 4 MG tablet [id number] every 12 (twelve) hours. Idalia Lua MD Active traZODone (Desyrel) 50 MG tablet [id number] 1 (one) time each day at the same time. Idalia Lua MD Active Patient is here today for follow-up of polyneuropathy, seizures. I am following the plan of care established by the physician who is present in the office today. HPI Ataxia/Polyneuropathy -he states he is on Gabapentin 100mg in the morning and 200mg at night -he just resumed this a few days ago -numbness in his feet -burning pain and pins and needles -radiates up his legs -he states toes are curled under -he ambulates with scooter -he uses walker at home -he denies any recent falls -he stopped drinking and this has helped his memory and fatigue Tremor -located in hands and legs -not as bad in his hands -tremors comes and goes -he has more tremors with stress and anxiety -his partner is wondering if he has panic attacks -he denies palpitations Seizures -he is currently on Keppra -denies any missed doses -he denies having any recent seizure activities Last one was September 2023 -he is not sleeping well -he has trouble staying asleep -he only gets about 4-5 a night -he has ROMINA but cannot tolerate the mask ROS Review of Systems Constitutional: Negative. Respiratory: Negative for cough and shortness of breath. Cardiovascular: Negative for chest pain and palpitations. Musculoskeletal: Positive for gait problem. Negative for back pain. Neurological: Positive for tremors, seizures and numbness. Negative for syncope. Psychiatric/Behavioral: Negative for confusion. The patient is nervous/anxious. Objective Visit Vitals BP 110/78 Ht 5' 11 Wt 202 lb BMI 28.17 kg/m Smoking Status Former BSA 2.14 m Neurological Exam Mental Status Awake, alert and oriented to person, place and time. Oriented to person, place and time. Recent and remote memory are intact. Speech is normal. Language is fluent with no aphasia. Attention and concentration are normal. Cranial Nerves CN III, IV, : Extraocular movements intact bilaterally. Normal lids and orbits bilaterally. Pupils equal round and reactive to light bilaterally. CN VII: Right: There is no facial weakness. Left: There is no facial weakness. CN VIII: Hearing is normal. CN XI: Shoulder shrug strength is normal. CN XII: Tongue midline without atrophy or fasciculations. Sensory Light touch abnormality: Impaired to bilateral lower extremities. Gait In a power scooter on exam today. Motor Examination RUE Strength deltoid, biceps, triceps, wrist extensors, wrist extensors, wrist flexor, dust collector attendant strength 5/5. LUE Strength deltoid, biceps, triceps, wrist extensors, wrist extensors, wrist flexor, dust collector attendant strength 5/5. RLE Strength illopsoas, quadriceps, tibialis anterior, and gastrocnemius strength 5/5. LLE Strength illopsoas, quadriceps, tibialis anterior, and gastrocnemius strength 5/5. Tone Normal tone x4 extremities. Reflexes: RUE biceps reflex 2, LUE biceps reflex 2, RLE knee reflex 0, LLE knee reflex 0, Assessment and Plan Diagnoses and all orders for this visit: Sensory ataxia He did suffer a fall late 2018 due to his legs buckling causing a severe hematoma on the left side of his forehead. MRI of his brain 04/2018 revealed age related atrophy with microvascular ischemic changes. EMG of the lower extremities revealed mild bilateral S1 radiculopathies more pronounced on the left. MRI of the cervical spine revealed disc extrusion with mild caudal migration at C5-6 causing severe narrowing of the right neural foramen. The cord was normal in signal intensity without post contrast enhancement. MRI of the thoracic spine revealed disc protrusion causing mild canal stenosis with mild mass effect on the anterior aspect of the cord. No cord signal abnormalities were note. Concern for primary progressive MS but clinically he does not yet meet criteria for diagnosis. LP revealed only myelin basic protein elevation. IgG synthesis was normal. There were zero oligoclonal bands. BLE EMG from 07/2019 revealed severe polyneuropathy. He continues with balance difficulty and is in a wheelchair. He is further debilitated. He is only walking to transfer to the toilet now. He did not complete PT and was in shelter. MOCA 01/10/2023 is 28/30. He has a power scooter and also 2 walkers to use in the home. Seizure (CMS/HCC) He is taking keppra, previously prescribed by his PCP and this was previously followed by his previous PCP. He has a new PCP and would like this office to take over keppra prescription. He denies any breakthrough events. Keppra level not completed x2. He did have breakthrough seizure per review of [facility] records 12/08/2022 that was attributed to severe electrolyte disturbances. EEG there did not show any seizure activity. He was continued on current keppra dosing but continued to drink ETOH and stop abruptly which is partner notes was the likely cuplrit to breakthrough events. He was admitted to [facility] facilities in January 2023 and February 2023 and we will request records for review. He also had an LP after discharge due to abnormal MRI brain and we will review when available. His Keppra was increased. His last seizure was September 2023. He notes that he has stopped drinking and denies breakthrough events. Tremor He has tremors of the extremities that started around 20 years ago that persist. He has been on primidone 50mg 1/2-1 tab PO QHS in the past. He takes Zanaflex for muscle spasms and has improved symptoms with this. He is on gabapentin which can also help with symptoms. Tremors are at baseline. Lumbosacral radiculopathy MRI of the lumbar spine revealed degenerative disc disease. EMG 04/2018 revealed bilateral S1 radiculopathies. BLE EMG 07/2019 revealed polyneuropathy severe in degree and predominately affecting sensory fibers. He has benefit with zanaflex. He is on gabapentin 400mg po bid but was taking both at night, which helped, but this was discontinued. He was titrated back to 600mg PO QHS and has had some benefit and is tolerating but had went without this for quite some time. This has been resumed and we will slowly adjust. Polyneuropathy Continues with symptoms but lessened with current medications. He is wheelchair bound due to his neuropathic symptoms and sensory deficits. Insomnia A PSG was discussed as he is not sleeping well. This was done 10 years ago and is sounds like he had ROMINA and did not treat this. He does not have a good sleep environment as he leaves the TV on. He remains on trazodone. Plan: 1. Adjust gabapentin to 100mg 2 tabs PO BID for neuropathic pain. He will start this in 2 weeks for gradual titration. 2. I counseled the patient on the side effects and interactions of medications. 3. I will obtain labwork to assess Keppra level. 4. Continue Zanaflex 4mg 1 1/2 - 2 tabs PO QHS for muscle spasms 5. Continue Cymbalta 60mg PO QHS for musculoskeletal pain 6. Continue Keppra 1250mg PO BID for seizure prevention 7. I counseled the patient on fall precautions. I discussed the high risk of trauma and debility associated with falls. He verbalized understanding. Follow up 4-6 weeks documented in this encounter [facility] 06-17-2024 Telephone encount er Note Spoke to pt and he states that TID is going to be difficult for him. He said he would rather have a medication for daily or even twice daily. Please send to [facility] in [place] [facility] 06-17-2024 Miscellaneous Notes Formattin g of this note might be different from the original. Spoke to pt and he states that TID is going to be difficult for him. He said he would rather have a medication for daily or even twice daily. Please send to [facility] in [place] Patient states he has been trying to call us back but has been having issues. He has been off the gabapentin since October. He was put on carbamazepine 200 mg in the hospital. He said his PCP said he should be off of this and resume the gabapentin. His gabapentin was 800 mg but he was told to restart he would have to start at 300 mg. He does have an appointment on June 24 and I told him if he didn't hear back that's because it may need to be discussed at his upcoming appointment with all the changes. Please advise. documented in this encounter [facility] 06-17-2024 Telephone encount er Note Patient states he has been trying to call us back but has been having issues. He has been off the gabapentin since October. He was put on carbamazepine 200 mg in the hospital. He said his PCP said he should be off of this and resume the gabapentin. His gabapentin was 800 mg but he was told to restart he would have to start at 300 mg. He does have an appointment on June 24 and I told him if he didn't hear back that's because it may need to be discussed at his upcoming appointment with all the changes. Please advise. [facility] Evaluation note Diagnosis Seizure (CMS/HCC)- Primary Other convulsions Polyneuropathy Unspecified hereditary and idiopathic peripheral neuropathy Tremor Abnormal involuntary movements Insomnia, unspecified type documented in this encounter [facility]* Diagnosis Polyneuropathy- Primary Unspecified hereditary and idiopathic peripheral neuropathy Seizure (CMS/HCC) Other convulsions Tremor Abnormal involuntary movements Sensory ataxia Lack of coordination documented [facility]* Diagnosis Polyneuropathy- Primary Unspecified hereditary and idiopathic peripheral neuropathy Lumbosacral radiculopathy Thoracic or lumbosacral neuritis or radiculitis, unspecified documented [facility]* Diagnosis Sensory ataxia- Primary Lack of coordination Seizure (CMS/HCC) Other convulsions Tremor Abnormal involuntary movements Lumbosacral radiculopathy Thoracic or lumbosacral neuritis or radiculitis, unspecified Polyneuropathy Unspecified hereditary and idiopathic peripheral neuropathy Insomnia, unspecified type documented [facility]* Diagnosis Lateral epicondylitis, left elbow- Primary Left elbow pain Pain in joint, upper arm documented in this [facility]* Diagnosis Dizziness- Primary Dizziness and giddiness documented [facility]* Diagnosis Tremor- Primary Abnormal involuntary movements Polyneuropathy Unspecified hereditary and idiopathic peripheral neuropathy Seizure (CMS/HCC) Other convulsions Lumbosacral radiculopathy Thoracic or lumbosacral neuritis or radiculitis, unspecified documented [facility]* Diagnosis Anxiety and depression (CMS/HCC)- Primary Polyneuropathy Unspecified hereditary and idiopathic peripheral neuropathy Seizure (CMS/HCC) Other convulsions Sensory ataxia Lack of coordination documented in this encounter [facility] Summary Purpose Family History No Family History Records FoundNo Family History Records FoundNo Family History Records FoundNo Family History Records Found Advance Directives No Advanced Directives Records FoundNo Advanced Directives Records FoundNo Advanced Directives Records FoundNo Advanced Directives Records Found Reason for Referral Specialty Diagnoses / Procedures Referred By Contac t Referred To Contact Neurology Diagnoses Seizure (CMS/HCC) Procedures EEG 2 Hour Routine Karen Victoria PA [address] [place] [address] Referral ID Status Reason Start Date Expiration Date V isits Requested Visits Authorized [id number] Pending Review 07/24/2024 01/20/2025 1 1 Additional Source Comments (unrecognized sect ion and content) No Status Records FoundNo Status Records FoundNo Status Records FoundNo Status Records Found INFORMATION SOURCE (unrecogn ized section and content) DATE CREATED AUTHOR 10/04/2022 [facility] DATE CREATED AUTHOR 'S ORGANIZ ATION 02/04/2023 [facility] DATE CREATED AUTHOR AUTHOR'S ORGANIZ ATION 10/02/2023 [facility] DATE CREATED AUTHOR AUTHOR'S ORGANIZ ATION 03/19/2025 [facility] EPIC Care Teams (unrecognized sec tion and content) Supervisor Type Disk Quality Control Relationship Specialty Start Date End Date Lachelle Caba PA [address] [place] [address] Referring Physician Physical Medicine and Rehabilitation 07/02/23 Supervisor Type Disk Quality Control Relationship Specialty Start Date End Date Lachelle Caba PA [address] [place] [address] Referring Physician Physical Medicine and Rehabilitation 07/02/23 Supervisor Type Disk Quality Control Relationship Specialty Start Date End Date Michael Martinez MD [address] [place] [address] PCP - General Family Medicine 09/11/24 Lachelle Caba PA [address] [place] [address] Referring Physician Physical Medicine and Rehabilitation 07/02/23 Marialuisa Cee MD [address] [place] [address] Referring Physician Family Medicine 08/13/24 Supervisor Type Disk Quality Control Relationship Specialty Start Date End Date Michael Martinez MD [address] [place] [address] PCP - General Family Medicine 09/11/24 Lachelle Caba PA [address] [place] [address] Referring Physician Physical Medicine and Rehabilitation 07/02/23 Marialuisa Cee MD [address] [place] [address] Referring Physician Family Medicine 08/13/24 Supervisor Type Disk Quality Control Relationship Specialty Start Date End Date Lachelle Caba PA [address] [place] [address] Referring Physician Physical Medicine and Rehabilitation 07/02/23 Supervisor Type Disk Quality Control Relationship Specialty Start Date End Date Lachelle Caba PA [address] [place] [address] Referring Physician Physical Medicine and Rehabilitation 07/02/23 Supervisor Type Disk Quality Control Relationship Specialty Start Date End Date Michael Martinez MD [address] [place] [address] PCP - General Family Medicine 09/11/24 Lachelle Caba PA [address] [place] [address] Referring Physician Physical Medicine and Rehabilitation 07/02/23 Marialuisa Cee MD [address] [place] [address] Referring Physician Family Medicine 08/13/24 Supervisor Type Disk Quality Control Relationship Specialty Start Date End Date Michael Martinez MD [address] [facility] [place] [address] PCP - General Family Medicine 09/11/24 Lachelle Caba PA [address] [place] [address] Referring Physician Physical Medicine and Rehabilitation 07/02/23 Marialuisa Cee MD [address] [place] [address] Referring Physician Family Medicine 08/13/24 Supervisor Type Disk Quality Control Relationship Specialty Start Date End Date Michael Martinez MD [address] [place] [address] PCP - General Family Medicine 09/11/24 Lachelle Caba PA [address] [place] [address] Referring Physician Physical Medicine and Rehabilitation 07/02/23 Marialuisa Cee MD [address] [place] [address] Referring Physician Family Medicine 08/13/24 Supervisor Type Disk Quality Control Relationship Specialty Start Date End Date Michael Martinez MD [address] [place] [address] PCP - General Family Medicine 09/11/24 Lachelle Caba PA [address] [place] [address] Referring Physician Physical Medicine and Rehabilitation 07/02/23 Marialuisa Cee MD [address] [place] [address] Referring Physician Family Medicine 08/13/24 Supervisor Type Disk Quality Control Relationship Specialty Start Date End Date Michael Martinez MD [address] [place] [address] PCP - General Family Medicine 09/11/24 Lachelle Caba PA [address] [place] [address] Referring Physician Physical Medicine and Rehabilitation 07/02/23 Marialuisa Cee MD [address] [place] [address] Referring Physician Family Medicine 08/13/24 Karen Victoria PA [address] [place] [id number] Physician Holiday Detector Operator Neurology 02/09/25 Supervisor Type Disk Quality Control Relationship Specialty Start Date End Date Michael Martinez MD [address] [place], [place] [id number] PCP - General Family Medicine 09/11/24 Lachelle Caba PA [address] [place], [place] [id number] Referring Physician Physical Medicine and Rehabilitation 07/02/23 Marialuisa Cee MD [address] [place] [address] Referring Physician Family Medicine 08/13/24 Karen Victoria PA [address] [phone] Physician Holiday Detector Operator Neurology 02/09/25 Reason for Visit (unrecogniz ed section and content) Reason Comments Seizures Tremors Reason Comments Gait Problem Seizures Tremors Reason Comments polyneuropathy Tremors Seizures Reason Comments Pain Reason Comments polyneuropathy Seizures Reason Comments Seizures polyneuropathy FOR RECORDS PERTAINING TO PATIENTS WHO ARE OR HAVE BEEN ENROLLED IN A CHEMICAL DEPENDENCY/SUBSTANCEABUSE PROGRAM, SOME INFORMATION MAY BE OMITTED. This clinical summary was aggregated from multiple sources. Caution should be exercised in using it in the provision of clinical care. This summary normalizes information from multiple sources, and as a consequence, information in this document may materially change the coding, format and clinical context of patient data. In addition, data may be omitted in some cases. CLINICAL DECISIONS SHOULD BE BASED ON THE PRIMARY CLINICAL RECORDS. [facility]. provides no warranty or guarantee of the accuracy or completeness of information in this document.
--- OUTSIDE RECORDS SUMMARY | 2025-08-05 13:14 | XMS_ITS | Clinical Summary ---
Author Organization [facility] Address [address] [place] [address] Care Team Providers Care Celery Stripper Name Role Phone Senthil Caba Unavailable Marialuisa Cee MD Unavailable Clem Martinez MD Primary Care Provider [phone] Anila Victoria Unavailable Allergies Active Allergy Reactions Criticality Noted Date Comments Latex Other,Rash Low 08/25/2022 Nickel Unknown 08/25/2022 Penicillins GI intolerance,Rash,Unknown Low 018 Sulfanilamide Unknown 07/02/2023 Medications Calcium Carbonate Antacid (CALCIUM CARBONATE PO) Take 1 capsule by mouth in the morning. Active calcium 200 MG tablet Calcium Active omega-3 (FISH OIL) 300 MG capsule Fish Oil Active tiZANidine (Zanaflex) 4 MG tablet every 12 (twelve) hours. 06/18/2023 Active traZODone (Desyrel) 50 MG tablet 1 (one) time each day at the same time. Active metoprolol succinate XL (Toprol-XL) 25 MG 24 hr tablet 1 (one) time each day at the same time. Active famotidine (Pepcid) 40 MG tablet take 1 tablet by mouth at bedtime Oral for 90 Active cyanocobalamin (Vitamin B-12) 1000 MCG tablet Take 1,000 mcg by mouth in the morning. Active clopidogrel (Plavix) 75 MG tablet 1 (one) time each day at the same time. Active Glucose Blood (Blood Glucose Test) strip 1 Strip Used Once daily to check sugar for 90 days 06/18/2023 Active Lancets (OneTouch Delica Plus [id number]) [facility] [place] 1 LANCET to TEST BLOOD SUGAR once daily 06/18/2023 Active metoprolol tartrate (Lopressor) 25 MG tablet Take 25 mg by mouth in the morning and 25 mg before bedtime. 09/25/2024 Active gabapentin (Neurontin) 100 MG capsuleIndicati ons:Polyneuropa thy Take 2 capsules (200 mg) by mouth in the morning and 2 capsules (200 mg) before bedtime. Due 03/29/25. 360 capsule 1 01/08/2025 Active levETIRAcetam (Keppra) 1000 MG tabletIndicatio ns:Seizure (HCC) Take 1 tablet (1,000 mg) by mouth in the morning and 1 tablet (1,000 mg) before bedtime. 180 tablet 2 01/08/2025 Active levETIRAcetam (Keppra) 250 MG tabletIndicatio ns:Seizure (HCC) Take 1 tablet (250 mg) by mouth in the morning and 1 tablet (250 mg) before bedtime. In addition to 1000mg BID. 180 tablet 2 01/08/2025 Active lamoTRIgine (LaMICtal) 25 MG tabletIndicatio ns:Seizure (HCC) 3 tabs PO BID 540 tablet 1 01/08/2025 Active escitalopram (Lexapro) 20 MG tabletIndicatio ns:Anxiety and depression Take 1 tablet (20 mg) by mouth Daily 60 tablet 3 03/12/2025 Active Active Problems Problem Noted Date Diagnosed Date Seizure 07/21/2024 Overview (07/21/2024): He is taking keppra, previously prescribed by [...] to breakthrough events. He was admitted to [facility] facilities in January 2023 and February 2023 and we will request records for review. He also had an LP after discharge due to abnormal MRI brain and we will review when available. His Keppra was increased. He denies seizures since January 2023. Sensory ataxia 07/21/2024 Overview (07/21/2024): He did suffer a fall late 2018 [...] did not complete PT and was in prison. MOCA 01/10/2023 is 28/30. He has not yet had repeat MRI brain as ordered and we will resubmit to assess abnormality noted in January 2023. Paresthesia 07/21/2024 Tremor 07/21/2024 Overview (07/21/2024): He has tremors of the extremities that started around 20 years ago that persist. He has been on primidone 50mg 1/2-1 tab PO QHS in the past. He takes Zanaflex for muscle spasms and has improved symptoms with this. He is on gabapentin which can also help with symptoms. At baseline. Lumbar radiculopathy 07/21/2024 Overview (07/21/2024): MRI of the lumbar spine revealed degenerative disc disease. EMG 04/2018 revealed bilateral S1 radiculopathies. BLE EMG 07/2019 revealed polyneuropathy severe in degree and predominately affecting sensory fibers. He has benefit with zanaflex. He is on gabapentin 400mg po bid but was taking both at night, which helped, but this was discontinued. He has titrated back to 600mg PO QHS and has had some benefit and is tolerating. His symptoms, however, persist. Closed head injury 07/21/2024 Overview (07/21/2024): Patient with hospital stay 06/2019 after tripping over a dog bed resulting in bilateral subdural hematomas and a closed C5 fracture. He was transferred to [facility] and was managed conservatively by neurosurgery. He continues to use a scooter. Polyneuropathy 07/21/2024 Overview (07/21/2024): Continues with symptoms but lessened with current medications. He is wheelchair bound due to his neuropathic symptoms and sensory deficits. Seizure disorder 07/21/2024 Insomnia, unspecified 07/21/2024 Overview (07/21/2024): A PSG was discussed as he is not sleeping well. This was done 10 years ago and is sounds like he had ROMINA and did not treat this. He does not have a good sleep environment as he leaves the TV on. Patient is on trazodone. Family History Medical History Relation Name Comments Mental illness Father anger issues Father Relation Name Status Comments Father Social History Tobacco Use Types Packs/Day Years [...] Sign Reading Time Taken Comments Blood Pressure 112/78 03/12/2025 10:52 AM EDT Pulse 88 03/12/2025 10:52 AM EDT Temperature - - Respiratory Rate - - Oxygen Saturation 99% 03/12/2025 10:52 AM EDT Inhaled Oxygen Concentration - - Weight 80.7 kg (178 lb) 03/12/2025 10:52 AM EDT Height 180.3 cm (5' 11 ) 03/12/2025 10:52 AM EDT Body Mass Index 24.83 03/12/2025 10:52 AM EDT Plan of Treatment Not on file Insurance [employer] Care Teams Celery Stripper Relationship Specialty Start Date End Date Clem Martinez MD [address], [place] [id number] PCP - General Family Medicine 09/11/24 Senthil Caba PA [address] [place], [place] [phone] Referring Physician Physical Medicine and Rehabilitation 07/02/23 Marialuisa Cee MD [address] [place], [place] [phone] Referring Physician Family Medicine 08/13/24 Anila Victoria PA [address] [place] [address] Physician Developer Programmer Analyst Neurology 02/09/25
--- OUTSIDE RECORDS SUMMARY | 2025-08-05 13:14 | XMS_ITS | Encounter Summary ---
Author Organization [facility] tem Address [id number] [address] [place] [address] Care Team Providers Care Valve Lapper Name Role Phone Senthil Caba PA-C Primary Care Provider [phone] Encounter Details Date Type Department Care Team (Late st Contact Info) Description 01/31/2021 Telephone [facility] [address] [place] [id number] Pratibha Campbell, RODOLFO Social History Tobacco Use [...] have Coronavirus / COVID-19? No / Unsure 01/08/2021 6:32 PM EDT documented as of this encounter Plan [...] on stairs Contact your local community or [facility] for information on exercise, fall prevention programs, or options for improving home safety. documented as of this encounter Visit Diagnoses Not on filedocumented in this encounter Additional Health Concerns Infection Onset Date Last Indicated Resolved Time Meningitis Rule-Out 03/15/2023 03/15/2023 03/22/20 11:13 PM EDT documented as of this encounter Care Teams Valve Lapper Relationship Specialty Start Date End Date Senthil Caba PA-C [address] [place] [address] PCP - General Physician Belt Lacer 02/02/23 documented as of this encounter
--- OUTSIDE RECORDS SUMMARY | 2025-08-05 13:14 | XMS_ITS | Clinical Summary ---
Author Organization [facility] Address [address], [address] [place] [address] Care Team Providers Care Fitness And Wellness Coordinator Name Role Phone Senthil Caba PA-C Primary Care Provider Allergies No known active allergies Medications traZODone (DESYREL) 50 MG tablet Take 1 tablet by mouth nightly Active vitamin E 180 MG (400 UNIT) CAPS capsule Take 1 capsule by mouth daily Active tiZANidine (ZANAFLEX) 4 MG tablet Take 1 tablet by mouth in the morning and at bedtime Active metoprolol tartrate (LOPRESSOR) 25 MG tablet Take 1 tablet by mouth daily Active omeprazole (PRILOSEC) 20 MG delayed release capsule Take 1 capsule by mouth daily Active acetaminophen (TYLENOL) 325 MG tablet Take 2 tablets by mouth as needed for Pain Active calcium carbonate 600 MG TABS tablet Take 1 tablet by mouth daily Active ondansetron (ZOFRAN-ODT) 4 MG disintegrating tablet Take 1 tablet by mouth as needed for Nausea or Vomiting Active DULoxetine (CYMBALTA) 30 MG extended release capsule Take 1 capsule by mouth at bedtime Active ferrous sulfate (IRON 325) 325 (65 Fe) MG tablet Take 1 tablet by mouth daily (with breakfast) Active [place]-3 1000 MG CAPS Take 1,000 capsules by mouth in the morning and 1,000 capsules in the evening. 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 09/18/2023 Breakthrough seizure 09/17/2023 Social History Tobacco Use Types Packs/Day Years Used Date Smoking Tobacco: Never Assessed Sex and Gender Information Value Date Recorded Sex Assigned at Not on file Legal Sex Male 2:08 PM EST Gender Identity Not on file Sexual Orientation Not on file Last Filed Vital Signs Vital Sign Reading Time Taken Comments Blood Pressure 106/64 09/22/2023 12:05 PM EST Pulse 83 09/22/2023 12:05 PM EST Temperature 36.3 C (97.3 F) 09/22/2023 12:05 PM EST Respiratory Rate 18 09/22/2023 12:05 PM EST Oxygen Saturation 90% 09/22/2023 12:05 PM EST Inhaled Oxygen Concentration - - Weight 97 kg (213 lb 13.5 oz) 09/17/2023 5:55 PM EST Height 177.8 cm (5' 10 ) 09/17/2023 5:55 PM EST Body Mass Index 30.68 09/17/2023 5:55 PM EST Plan of Treatment Health Maintenance Due Date Last Done Comments Depression Screen 1973 HIV screen 01/26/1976 Hepatitis C screen 1979 Lipids 2001 Colonoscopy 2006 Colorectal Cancer Screen 2006 FIT/FOBT: Average risk 2006 Fecal-DNA (Cologuard): [place] ge risk 2006 Sigmoidoscopy/CT colonography 2006 Pneumococcal 50+ years Vacci ne (1 of 1 - PCV) 2011 Shingles vaccine (1 of 2) 2011 DTaP/Tdap/Td vaccine (2 - Td or Tdap) 09/04/2024 09/04/2014 Annual Wellness Visit (Medicare Advantage) 10/22/2024 Flu vaccine (#1) 05/22/2025 COVID-19 Vaccine ( - 2024-2 6 season) 2025 01/08/2022, 03/23/2021, 02/23/2021 Respiratory Syncytial Virus (RSV) or age 60 yrs+ (1 - 1-dose 75+ series) 01/26/2036 Hepatitis A vaccine Aged Out No longe r eligible based on patient's age to complete this topic Hepatitis B vaccine Aged Out No longe r eligible based on patient's age to complete this topic Hib vaccine Aged Out No longer eligi ble based on patient's age to complete this topic Meningococcal (ACWY) vaccine Aged Out No longer eligible based on patient's age to complete this topic Meningococcal B vaccine Aged Out No l onger eligible based on patient's age to complete this topic Polio vaccine Aged Out No longer elig ible based on patient's age to complete this topic Insurance [facility] DUAL BENEFITS Advance Directives * Full Code (Latest Code Status on File) Date Activated Date Inactivated Comments 09/17/2023 5:55 PM 09/22/2023 7:23 PM Care Teams Fitness And Wellness Coordinator Relationship Specialty Start Date End Date Senthil Caba PA-C [address] [place], [place] [phone] PCP - General Family Medicine 09/18/23
== END 2025-08-05 13:05 | disposition home or self-care (01) ==
LOC: RAD 13:10
PROVIDERS: Visit Provider Podiatrist Foot & Ankle Surgery
DX: M20.22 Hallux rigidus, left foot (principal); M20.21 Hallux rigidus, right foot
CPT/HCPCS: 73630

== ENCOUNTER 2025-08-12 12:50 | Outpatient (OUT) | payer MEDICARE, SELFPAY ==
--- OUTSIDE RECORDS SUMMARY | 2024-11-17 04:15 | XMS_ITS ---
Author Organization The [facility] in [place] Address [address] [place] [address] Care Team Providers Care Fuel Storage Technician Name Role Phone Senthil Caba Primary Care Provider UnavailArmando Kwan Unavailable [phone] REASON FOR VISIT RT 1st MPJ and hammertoe repairs Encounters Encounter Location Date Provider Diagnosis THE [facility] OUT[facility]IENT [address] [place] [id number] 11/17/2024 Armando Panda Plan Of Treatment No Information Progress Notes * Clem CHEN ADOB:[birth year] (65 yo M)Acc No.[id number]:11/17/2024 UNLOCKED PROGRESS NOTE Patient:?Clem CHEN :?Armando Panda DPM, MSDOB:1960???Age: 64 Y???Sex:MaleDate:11/17/2024Phone:[phone]:[address] [place], [id number]:Senthil Caba * * Electronic signature of Armando Panda DPM on 08/12/2025 at 12:54 PM EDTSign off status: PendingVisit Status:?CANC (Cancelled) * Provider: Lonnie Panda DPM, MS Date: 0 11/17/2024 Generated for Printing/Faxing/eTransmitting on:?08/12/2025 12:54 PM EDT
--- OUTSIDE RECORDS SUMMARY | 2025-08-06 06:30 | XMS_ITS ---
Author Organization [facility] Address [address] [address], [facility] [place] [address] Care Team Providers Care Guidance Counselor Name Role Phone Armando Panda Unavailable [phone] Allergies Allergen (clinical drug ingredient) Drug/Non Drug Allergy documented on EMR Reaction Allergy Type Onset Date Status PenicillinUnknownDrug AllergyActive REASON FOR VISIT Bilateral Foot Pain Medications Medication SIG (Take, Route, Frequency, Duration) Notes Start Date End Date Status Metoprolol Tartrate 25 MG Tablet Oral; Duration: 90 Days ActiveVitamin EActiveCalcium CarbonateActiveDULoxetine HClActiveFurosemideActive IronActiveOmega 3ActiveOmeprazoleActiveOndansetronActivetraZODone HCl 50 MG Tablet1 tablet at bedtime as needed Orally Once a dayActiveTylenolActiveVitamin J4GyvueoKfepybzdnzb Bisulfate 75 MG Tablet1 tablet Orally Once a dayActive tiZANidine HClActive Problems Problem Type SNOMED Code ICD Code Onset Dates Problem Status W/U Status Risk Notes Problem Acquired hallux rigidus (5936708) Hallux rigidus, right foot (M20.21) ActiveconfirmedProblemAcquired hammer toe of right foot (3586635683290640)Other hammer toe(s) (acquired), right foot (M20.41)ActiveconfirmedProblemPeripheral vascular disease (347682193)Peripheral vascular disease, unspecified (I73.9) Activeconfirmed Encounters Encounter Location Date Provider Diagnosis [facility] [address] [address], [place] [address] 08/06/2025 Armando Tnisleyrosie Hallux rigidus, right foot M20.21 ; Other hammer toe(s) (acquired), right foot M20.41 ; Other deformities of toe(s) (acquired), right foot M20.5X1 and Peripheral vascular disease, unspecified I73.9 Assessments Encounter Date Diagnosis (ICD Code) Assessment Notes Treatment Notes Treatment Clinical Notes Section Notes 08/06/2025 Hallux rigidus, right foot (ICD- 10 - M20.21) Patient was seen and evaluated. We discussed surgical intervention in detail which may likely consist of exostectomy of 1st metatarsal, partial amputation of 3rd toe and PIPJ arthroplasty vs partial amputation of the 2nd toe. These procedures would involve an easier recovery as compared to 1st MPJ fusion and would allow himto WBAT in surgical shoe immediately post op. He is going to monitor his symptoms closely and thinkabout the above procedures while he obtains vascular testing. 08/06/2025Other hammer toe(s) (acquired), right foot (ICD-10 - M20.41)08/06/2025 Other deformities of toe(s) (acquired), right foot (ICD-10 - M20.5X1)08/06/2025 Peripheral vascular disease, unspecified (ICD-10 - I73.9)Noninvasive vascular testing was ordered. Although he does not have symptoms of rest pain or claudic ation he has an abnormal pulse exam and history of smoking (quit ~12 years ago). After the testing is completed he will f/u to discuss next steps Plan Of Treatment Treatment Notes Assessment Notes Hallux rigidus, right foot Patient was seen and evaluated. We discussed surgical intervention in detail which may likely consist of exostectomy of 1st metatarsal, partial amputation of 3rd toe and PIPJ arthroplasty vs partial amputation of the 2nd toe. These procedures would involve an easier recovery as compared to 1st MPJ fusion and would allow him to WBAT in surgical shoe immediately post op. He is going to monitor his symptoms closely and think about the above procedures while he obtains vascular testing. Peripheral vascular disease, unspecified Noninvasive vascular testing was ordered. Although he does not have symptoms of rest pain or claudication he has an abnormal pulse exam and history of smoking (quit ~12 years ago). After the testing is completed he will f/u to discuss next steps Next Appt Details Follow Up: after ABIs/TBIs/v asc testing, Reason: History and Physical Notes * HPI (History of Present Illness) CategorySub-CategoryDetailNotesCategory NotesKelly is a 65M with long- standing b/l foot pain - Right worse than left. He was last seen last yearand we discussed surgical intervention regarding his right foot however did not get vascular testing. His pain is daily and limits ADLs severely. He is in a motorized scooter for long distances but is able to walk around the house with a walker. Examination CategorySub-CategoryDetailNotesCategory NotesGeneral Examination Derm: Skin intact. No SOI Vasc: Dorsalis pedis pulse is nonpalpable however PT pulse is faintly palpable. Mild swelling to medial forefoot at 1st MPJ. Absent digital hair Neuro: light touch sensation intact to dorsal and plantar foot. Negative tinel's sign. MSK: Right foot: ROM of the great toe is less than 10 degrees but attempted ROM is not painful. Palpable periarticular osteophyte on 1st met head. 2nd toe crosses over the 3rd and both are severely contracted. Toes 4 and 5 are contracted in adductovarus. Progress Notes * Clem CHENDOB:1960 (65 yo M)Acc No.[id number]:08/06/2025 New Patient Patient: Clem Pablo :?Armando Panda, DPMDOB:1960???Age:65 Y ???Sex:MaleDate:08/06/2025Phone:Address:[address], [place], [id number] Subjective: * Chief Complaints: * B ilateral Foot Pain * HPI: ???Foot:?Clem is a 65M with long-standing b/l foot pain - Right worse than left. He was last seen last yearand we discussed surgical intervention regarding his right foot however did not get vascular testing. His pain is daily and limits ADLs severely. He is in a motorized scooter for long distances but is able to walk around the house with a walker. * Medical History: Hepatic encephalopathy Seizures Arthritis Medical History Verified * Surgical History: Left Knee x 2 ? Surgical History verified.? * Family History: F ather: diagnosed with Essential hypertension, Heart disease. F amily History Verified..? Father also has history of blood clots and lung disease. * Medications: T akingtiZANidine HCl Clopidogrel Bisulfate 75 MG Tablet 1 tablet Orally Once a day Vitamin D3 Tylenol traZODone HCl 50 MG Tablet 1 tablet at bedtime as needed Orally Once a day Ondansetron Omeprazole [place] 3 Iron Furosemide DULoxetine HCl Calcium Carbonate Vitamin E Metoprolol Tartrate 25 MG Tablet Oral Medication List reviewed and reconciled with the patientTaking tiZANidine HCl Taking Clopidogrel Bisulfate 75 MG Tablet 1 tablet Orally Once a day Taking Vitamin D3 Taking Tylenol Taking traZODone HCl 50 MG Tablet 1 tablet at bedtime as needed Orally Once a day Taking Ondansetron Taking Omeprazole Taking [place] 3 Taking Iron Taking Furosemide Taking DULoxetine HCl Taking Calcium Carbonate Taking Vitamin E Taking Metoprolol Tartrate 25 MG Tablet Oral Medication List reviewed and reconciled with the patient * Allergies: P enicillinyesAllergies Verified. Objective: * Examination: ???General Examination: ???Derm: Skin intact. No SOI Vasc: Dorsalis pedis pulse is nonpalpable however PT pulse is faintly?palpable. Mild swelling to medial forefoot at 1st MPJ. Absent digital hair Neuro: light touch sensation intact to dorsal and plantar foot. Negative tinel's sign. MSK: Right foot: ROM of the great toe is less than 10 degrees but attempted ROM is not painful. Palpable periarticular osteophyte on 1st met head. 2nd toe crosses over the 3rd and both are severely contracted. Toes 4 and 5 are contracted in adductovarus. Assessment: * Assessment: 1.?Hallux rigidus, right foot - M20.21 (Primary)???2.?Other hammer toe(s) ( acquired), right foot - M20.41???3.?Other deformities of toe(s) (acquired), righ t foot - M20.5X1???4.?Peripheral vascular disease, unspecified - I73.9? ? Plan: * Treatment: Notes: Patient was seen and evaluated. We discussed surgical intervention in detail which may likely consist of exostectomy of 1st metatarsal, partial amputation of 3rd toe and PIPJ arthroplasty vs partial amputation of the 2nd toe.? These procedures would involve an easier recovery as compared to 1st MPJ fusion and would allow himto WBAT in surgical shoe immediately post op. He is going to monitor his symptoms closely and thinkabout the above procedures while he obtains vascular testing.??2.?Peripheral vascular disease, unspecified? Notes: Noninvasive vascular testing was ordered. Although he does not have symptoms of rest pain orclaudication he has an abnormal pulse exam and history of smoking (quit ~12 years ago). After the testing is completed he will f/u to discuss next steps?? * Follow Up: a fter ABIs/TBIs/vasc testing Billing Information: * Visit Code: 92331 Office Visit, Est Pt., Level 3. * Procedure Codes: * Sign off status: Completed true * Provider: Lonnie Panda DPM Date: 1 Generated for Printing/Faxing/eTransmitting on:?08/12/2025 12:53 PM EDT
--- OUTSIDE RECORDS SUMMARY | 2025-08-12 12:52 | XMS_ITS | Patient Health Record ---
Author Organization [facility] vices Address [address] [place] [address] Care Team Providers Care Refrigeration Insulator Name Role Phone Marialuisa Cee Primary Care Provider Allergies Allergen (clinical drug ingredient) Drug/Non Drug Allergy documented on EMR Reaction Allergy Type Onset Date Status Penicillinnausea and vomitingDrug AllergyActive Results Component Value Reference Range Notes LIPID PANEL WITH REFLEX TO D IRECT LDL Reviewed date:03/31/2025 12:02:20 PM Interpretation: Performing Lab: Notes/Report: CHOLESTEROL 171 100-199 mg/dL DRQMIOTNWNLKU8078-166 mg/dLVLDL-CHOL, QCICLVDOKO76<30 mg/dLHDL-CHOL58>=40 mg/dL LDL-CHOL, JUJJNLWHDP471<130 mg/dL ADULT LDL CHOLESTEROL CLASSIFICATION <100mg/dL Optimal 100-129mg/dL Near/Above Optimal 130-159mg/dL Borderline High >160mg/dL High Risk Desirable range <100 mg/dL for patients with CHD or diabetes and <70 mg/dL for diabetic patients with known heart disease. Direct LDL is recommended for patients with triglycerides >400. LDL/HDL1.8<5.0 LDL/HDL RATIO MALE FEMALE below average risk <2.3 <2.3 average risk <5.0 <4.1 moderate risk <7.1 <5.6 high risk >7.1 >5.6 CHOL/HDL2.92.0-4.5COMPREHENSIVE METABOLIC PANEL WITH GFR Reviewed date:03/31/2025 12:03:07 PM Interpretation: Performing Lab: Notes/Report:OICWYWZ35982-303 mg/iFFZB83-37 mg/dLCALCIUM9.18.6-10.5 mg/dL CREATININE, BLOOD0.670.67-1.30 mg/dLeGFR (2020 CKD-EPI)104>59 mL/min/1.73m2 JBDFAG573714-284 mmol/LPOTASSIUM4.63.5-5.4 mmol/LZWJTRMLR34748-405 mmol/PFF769 18-32 mmol/LANION UMB211-63 mmol/LT. BILIRUBIN0.4<1.3 mg/dLALK HEGZ76683-520 U/L TUC-BSFG389-02 U/QQZE-JXGF296-27 U/LT. PROTEIN7.26.0-8.3 g/dLALBUMIN4.53.5-5.2 g/dLPSA, TOTAL, 3RD GENERATION (MC SCREEN) Reviewed date:03/31/2025 12:02:10 PM Interpretation: Performing Lab: Notes/Report: Method: Stereobot Kartik ECLIA PSA levels should not be interpreted [...] UNLESS OTHERWISE INDICATED, ALL TESTING PERFORMED AT: [employer] [address] [place] [address] SPACECRAFT SYSTEMS ENGINEER: SHEILA FAUST M.D. CLIA NUMBER [id number] CAP ACCREDITATION AUID [id number], TOTAL0.8360-4.00 ng/mL Reason For Referral Reason left elbow pain Diagnosis 1 Left elbow pain (M25 .522) Referral Organization Main Referring Provider First Name Marialuisa Referring Provider Last Name Coleman Referring Provider Speciality Nurse Alexandro torresionecarlos Referred Provider [facility] Referred Provider Specialty Orthopedics General Notes Nisreen Stewart 11:07:32 AM >{{TOFIRSTNAME}} This is [facility] following up on an outstanding referral [...] MG 1 tablet Orally 3 in the morning and 3 at night ActiveEscitalopram Oxalate 20 MG1 tablet Orally Once a dayActivelevETIRAcetam 1000 MG1 tablet Orally Twice a day; Duration: 30 gpcg8955mj bid totalActive Gabapentin 300 MG1 capsule Orally Twice a day; Duration: 30 pzgl163 mg in the AM and 200 in the PM05/30/2024ctivelevETIRAcetam 250 MG1 tablet Orally every 12 hrs; Duration: 30 kqxy5794ok bid total. take with 1000mg doseActiveMetoprolol Tartrate 25 MG1 tablet with food Orally Twice a day; Duration: 90 daysActive Social History Tobacco Use: Social History Observation [...] data When did you start smoking? 10/22/1977 p atient entered data When did you stop [...] No patient entered data CAGE-AID Score 0 InterpretationNegativePRAPARE Question Answer Notes Date Completed/Updated: 03/30/2025 matte nt entered data What is your current housing situation? I have housing patient entered data Are you worried about losing your housing? No patient entered data What is the highest level of school that you have finished? High school diploma or GED patient entered data What is your current work situation? Otherwise unemployed but not seeking work (ex. student, retired, disabled, unpaid primary long term care phlebotomist) patient entered data In the past year, have you o r any family members you live with been unable to get any of the following when it was really needed? Check all that apply I do not have problems meeting my needs Has lack of transportation kept you from medical appointments, meetings, work or from getting things needed for daily living?NoHow often do you see or talk to people that you care about and feel close to? (For example: talkingto friends on the phone, visiting friends or family, going to restorationist or club meetings)More than 5 times a weekpatient entered dataHow stressed are you? Stress is when someone feels tense, nervous, anxious, or can't sleep at nightbecause their mind is troubledA little bitIn the past year have you spent more than 2 nights in a row in a senior care, correction, group home center, orjuvenile correctional facility?NoAre you a refugee?Nopatient entered dataWhat country are you from?[place] patient entered dataDo you feel physically and emotionally safe where you currently live?Yespatient entered dataIn the past year, have you been afraid of your partner or ex-partner?NoPRAPARE Score:5Tobacco Control (Standard) Question Answer Notes Tobacco use: Former smoker How long has it been since you last smoked?Greater than 10 years Problems Problem Type SNOMED Code ICD Code Onset Dates Problem Status W/U Status Risk Notes Problem Overweight (497495188) Overweight (E66.3) ActiveconfirmedProblemEssential hypertension (49929025)Essential hypertension (I10)ActiveconfirmedProblemAnxiety (77484293)Anxiety (F41.9)Activeconfirmed ProblemCOPD - Chronic obstructive pulmonary disease (78964401)Chronic obstructive pulmonary disease, unspecified COPD type (J44.9)Activeconfirmed ProblemSeizure disorder (006257733)Seizure disorder (G40.909)Activeconfirmed ProblemNeuropathy (948158039)Neuropathy (G62.9)ActiveconfirmedProblemS/P peripheral artery angioplasty with stent placement (Z95.820)Activeconfirmed Vital Signs Heart Rate 65 /min 03/30/2025 Aster Triplett 03/30/2025 10:36:35 AM EDT > Temperature 98.4 degrees Fahrenheit 03/30/2025 Aster Shetty 03/30/2025 10:36:35 AM EDT > Respiratory Rate 18 /min 03/30/2025 Tarun Triplett 03/30/2025 10:36:35 AM EDT > Blood pressure diastolic 69 mm Hg 03/30/2025 Aster Mari 03/30/2025 10:36:35 AM EDT > Oximetry 100 % 03/30/2025 Aster Triplett 03/30/2025 10:36:35 AM EDT > Weight-kg 81.65 kg 03/30/2025 Aster Triplett 03/30/2025 10:36:35 AM EDT > Height 70 in 03/30/2025 Aster Triplett 03/30/2025 10:36:35 AM EDT > Blood pressure systolic 104 mm Hg 03/30/2025 Aster Shetty 03/30/2025 10:36:35 AM EDT > Weight 180.0 lbs 03/30/2025 Aster Triplett 03/30/2025 10:36:35 AM EDT > BMI 25.82 kg/m2 03/30/2025 Aster Triplett 03/30/2025 10:36:35 AM EDT > Encounters Encounter Location Date Provider Diagnosis Main [address] [place] [id number] 09/25/2024 Marialuisa Cee Essential hypertensi on I10 ; Left elbow pain M25.522 ; Seizure disorder G40.909 ; Screening for prostate cancer Z12.5 ; Overweight E66.3 and Body mass index [BMI] 28.0-28.9, adult Z68.28 Main [address] [place] [id number] 03/30/2025 Marialuisa Cee Well adult exam Z00. 00 ; Overweight E66.3 ; Body mass index [BMI] 25.0-25.9, adult Z68.25 ; Screening for cardiovascular condition Z13.6 ; Screening for prostate cancer Z12.5 and Screening for colorectal cancer Z12.11 Main [address] [place] [id number] 10/02/2024 Marialuisa Cee [address] [place] [id number]/Marialuisa CeeMain[address] [place] [address]/07/2025Marialuisa Cee Assessments Encounter Date Diagnosis (ICD Code) Assessment Notes Treatment Notes Treatment Clinical Notes Section Notes 09/25/2024 Essential hypertension (ICD-10 - I10) HTN stable. Will continue current medications. Encouraged healthy diet and exercise. Will order routine blood work. F/u 6 months & PRN111/26/2023Left elbow pain (ICD-10 - M25.522)Will make referral to Ortho per pt request for further toyjqkakzz45/09/2025Overweight (ICD-10 - E66.3)Body Mass Index: Care Instructions material was oohtytw2003/30/2025Well adult exam (ICD-10 - Z00.00) Patient presents to office today for their Annual Wellness Visit. Education was provided on healthy nutrition, including a diet rich in fruits and vegetables, minimizing simple carbohydrates, salt, and saturated fats. Encouraged regular cardiovascular exercise suchas walking at least 30 minutes daily, 5 times per week. Emphasized preventive health measures and educated pt on fall prevention and community-based lifestyle interventions to help reduce health risks and promote healthy living. 03/30/2025ody mass index [BMI] 25.0-25.9, adult (ICD-10 - Z68.25)09/25/2024 Seizure disorder (ICD-10 - G40.909)Pt to continue to f/u with Neurology 09/25/2024Screening for prostate cancer (ICD-10 - Z12.5)03/30/2025Screening for cardiovascular condition (ICD-10 - Z13.6)03/30/2025Screening for prostate cancer (ICD-10 - Z12.5)09/25/2024Overweight (ICD-10 - E66.3)09/25/2024ody mass index [BMI] 28.0-28.9, adult (ICD-10 - Z68.28)Body Mass Index: Care Instructions material was yqksqiv7003/30/2025Screening for colorectal cancer (ICD-10 - Z12.11) Plan Of Treatment Next Appt Details Provider Name:Marialuisa biggs, 09/28/2025 11:00:00 AM, [address] [place], [place], [id number], Insurance Providers Payer Name Payer Address Payer Phone Subscriber Number Group Number Insured Name Patient Relationship to Insured Coverage Start Date Coverage End Date [employer] Medicare [address] [address] [place] [phone] [id number] Clem Triplett Self - patient is the insured Medicaid [address] [place], [place] [id number], James Self - patient is the [id number] 2024 Medical (General) History Medical History History ICD Code seizure disorder Essential leqsmbycbudbG09Ibnstkgt History Surgery Date(Month/Year) herniated disk repair Left knee arthroscopyStent left iliacHospitalization History Reason Date(Month/Year) seizures 09/2023 Fell @ home 2013
--- OUTSIDE RECORDS SUMMARY | 2025-08-12 12:53 | XMS_ITS | Patient Health Record ---
Author Organization [facility] [place] Address [address] [place] [address] Care Team Providers Care Tank Truck Driver Name Role Phone Senthil Caba Primary Care Provider Bam [facility] [phone] Allergies Allergen (clinical drug ingredient) Drug/Non Drug Allergy documented on EMR Reaction Allergy Type Onset Date Status PenicillinUnknownDrug AllergyActive Results Component Value Reference Range Notes XR foot VARGAS min 3V (Not yet reviewed by provider) Interpretation: Performing Lab: Notes/Report: Source Facility: [place] [address] XRay Report Signed Patient: Michael Chen MR#: [id number] : 1960 Acct:[id number] Age/Sex: 64 / M ADM Date: 10/01/24 Loc: RAD Attending Dr: Bam Panda D.P.M. Ordering Physician: Bam Panda D.P.M. Date of Service: 10/01/24 Procedure(s): XR foot VARGAS min 3V Accession Number(s): [id number] cc: Bam Panda D.P.M.; Physician,Non-Staff Julio Cesar [address] [address] Patient Name: MICHAEL CHEN MRN: [id number] date: 1960 Sex: M Assigned Patient Location: RAD Current Patient Location: RAD Accession/Order Number: [id number] Exam Date: 10/01/2024 10:02 Report Date: 10/01/2024 [...] AMADOR Date: 10/01/2024 12:00 Dictated By: Fina Aamdor M.D. Signed By: 10/01/24 1203 DD/ 1200 TD/TT: Nurse College: XR Foot RT (3 views) * Reviewed date:10/20/2024 01:15:14 PM Interpretation: Performing Lab: Notes/Report: Reason For Referral No Information Medications Medication SIG (Take, Route, Frequency, Duration) Notes Start Date End Date Status DULoxetine HCl ActivetraZODone HCl 50 MG1 tablet at bedtime as needed Orally Once a dayActive Calcium Carbonate 600 MG1 tablet with food Orally Twice a dayActiveOndansetron ActiveFurosemideActiveTylenolActiveIron (Ferrous Sulfate)ActiveVitamin B12 1000 MCG1 tablet Orally Once a dayActivelevETIRAcetam 250 MG1 tablet Orally every 12 hrsActiveVitamin D3 50 MCG (2000 UT)1 capsule Orally Once a dayActive levETIRAcetam 1000 MG1 tablet on the tongue and allow to dissolve Orally Twice a dayActiveGabapentin 100 MGOral; Duration: 90 DaysActiveMagnesium Oxide 400 MG1 tablet as needed Orally Once a dayActiveMetoprolol Tartrate 25 MG1 tablet with food Orally Twice a dayActiveOmega 3ActiveOmeprazoleActive Social History Tobacco Use: Social History Observation Description Date Details (start date - stop date) Former Smoker NA - 07/05/2012 Tobacco Use/Smoking Question Answer Notes Patient is a former smoker When did you stop smoking?07/05/2012lcohol Screen (Audit-C) Question Answer Notes Did you have a drink containing alcohol in the p ast year? No Djfail3MhukmzjleosaizSbotsmsl Problems Problem Type SNOMED Code ICD Code Onset Dates Problem Status W/U Status Risk Notes Problem Peripheral vascular disease (382776585) Peripheral vascular disease, unspecified (I73.9) ActiveconfirmedProblemAcquired hallux valgus (23145795)Hallux valgus (acquired), left foot (M20.12)ActiveconfirmedProblemAcquired hallux rigidus (0543384)Hallux rigidus, right foot (M20.21)ActiveconfirmedProblemAcquired hammer toe of right foot (5074958728243910)Other hammer toe(s) (acquired), right foot (M20.41)Active confirmedProblemPain in right foot (062477016364109)Right foot pain (M79.671) ActiveconfirmedProblemPain in left foot (614960608842859)Left foot pain (M79.672)ActiveconfirmedProblemSecondary hypertension (93594574)Hypertension, secondary (I15.9)Activeconfirmed Vital Signs Heart Rate 72 /min 10/01/2024 Pyywvafqpst85 degrees Edfqmxuhgg29/11/1102Qxjiykpi31 %10/01/20243545Zpwciv09 in 10/01/20246855Eogalb432 lbs112/02/2023BMI30.82 kg/m210/01/2024 Procedures Procedure Date Ordered Date Performed Result Body Sit e DELIA Segmental Pressure Study of Lower Extremity 10/01/2024 N/A Encounters Encounter Location Date Provider Diagnosis [facility] ([facility]) [address] [place] [address] [place] [address] 10/01/2024 Bam Panda Hallux rigidus, right foot M20.21 ; Other hammer toe(s) (acquired), right foot M20.41 ; Other deformities of toe(s) (acquired), right foot M20.5X1 ; Right foot pain M79.671 ; Hallux valgus (acquired), left foot M20.12 ; Left foot pain M79.672 and Peripheral vascular disease, unspecified I73.9 [facility] ([facility]OD[facility]) [address] [place] [address] [place] [address] 02/16/2025 Bam Panda Assessments Encounter Date Diagnosis (ICD Code) Assessment Notes Treatment Notes Treatment Clinical Notes Section Notes 10/01/2024 Hallux rigidus, right foot (ICD- 10 - M20.21) Patient was seen and evaluated. Patient's condition was provided and all questions were answered tosatisfaction. I reviewed x-rays and physical exam findings. [...] his lesser toe contractures given their severity 10/01/2024Other hammer toe(s) (acquired), right foot (ICD-10 - M20.41)10/01/2024 Other deformities of toe(s) (acquired), right foot (ICD-10 - M20.5X1)10/01/2024 Right foot pain (ICD-10 - M79.671)10/01/2024Hallux valgus (acquired), left foot (ICD-10 - M20.12)10/01/2024Left foot pain (ICD-10 - M79.672)10/01/2024eripheral vascular disease, unspecified (ICD-10 - I73.9) Plan [...] Date [employer] MEDICARE ADV PLAN [address] [address] [place] [address] [id number] Nicole Chen - patient is the insured Medical (General) History Medical History History ICD Code Hepatic encephalopathy K76.82 Seizures Abnormal finding on right footArthritisSurgical History Surgery Date(Month/Year) Left knee x2 Dr. Espino
--- OUTSIDE RECORDS SUMMARY | 2025-08-12 12:54 | XMS_ITS | Clinical Summary ---
Author Organization [facility] Address [address] [place] [address] Care Team Providers Care Time Signal Wirer Name Role Phone Unavailable Primary Care Provider Unavailabl e Social History Tobacco UseTypesPacks/DayYears UsedDateSmoking Tobacco: Never AssessedUT Safety & EnvironmentAnswerDate RecordedFear of Current or Ex-PartnerNot on file 12/13/2023Emotionally AbusedNot on file12/13/2023hysically AbusedNot on file 12/13/2023Sexually AbusedNot on file12/13/2023hysically or Sexually AbusedNot on file12/13/2023Sex and Gender InformationValueDate RecordedSex Assigned at BirthNot on fileLegal IjmHgzx3904/19/2022 10:12 PM EDTGender IdentityNot on file Sexual OrientationNot on file Last Filed Vital Signs Vital SignReadingTime TakenCommentsBlood Cjefemwm393/7504 2:08 PM EDT Sjbhi7256 2:08 PM EDTTemperature--Respiratory Rate--Oxygen Wktyrhdiha57% 02/16/2021 2:08 PM EDTInhaled Oxygen Concentration--Ftjbjz04.5 kg (215 lb) 02/16/2021 2:05 PM XGPZzygjz982.3 cm (5' 9 )02/16/2021 2:05 PM EDTBody Mass Index31.7504 2:05 PM EDT Plan of Treatment Not on file
--- OUTSIDE RECORDS SUMMARY | 2025-08-12 12:54 | XMS_ITS | Clinical Summary ---
Author Organization [facility] Address [address], [address] [place] [address] Care Team Providers Care Mask Layout Designer Name Role Phone Senthil Caba PA-C Primary Care Provider Allergies No known active allergies Medications MedicationSigDispense QuantityRefillsLast FilledStart DateEnd DateStatus traZODone (DESYREL) 50 MG tablet Take 1 tablet by mouth nightlyActive vitamin E 180 MG (400 UNIT) CAPS capsule Take 1 capsule by mouth dailyActive tiZANidine (ZANAFLEX) 4 MG tablet Take 1 tablet by mouth in the morning and at bedtimeActive metoprolol tartrate (LOPRESSOR) 25 MG tablet Take 1 tablet by mouth dailyActive omeprazole (PRILOSEC) 20 MG delayed release capsule Take 1 capsule by mouth dailyActive acetaminophen (TYLENOL) 325 MG tablet Take 2 tablets by mouth as needed for PainActive calcium carbonate 600 MG TABS tablet Take 1 tablet by mouth dailyActive ondansetron (ZOFRAN-ODT) 4 MG disintegrating tablet Take 1 tablet by mouth as needed for Nausea or VomitingActive DULoxetine (CYMBALTA) 30 MG extended release capsule Take 1 capsule by mouth at bedtimeActive ferrous sulfate (IRON 325) 325 (65 Fe) MG tablet Take 1 tablet by mouth daily (with breakfast)Active [place]-3 1000 MG CAPS Take 1,000 capsules by mouth in the morning and 1,000 capsules in the evening. Active furosemide (LASIX) 20 MG tablet Take 1 tablet by mouth as neededActive Cholecalciferol (VITAMIN D3) 50 MCG (2000 UT) CAPS Take 50 capsules by mouth dailyActive clopidogrel (PLAVIX) 75 MG tablet Take 1 tablet by mouth dailyActive Active Problems ProblemNoted DateDiagnosed DateStatus epilepticus due to complex partial seizure 09/18/2023reakthrough mrqkdis6709/17/2023 Social History Tobacco UseTypesPacks/DayYears UsedDateSmoking Tobacco: Never AssessedSex and Gender InformationValueDate RecordedSex Assigned at BirthNot on fileLegal Sex Male12/01/2012 2:08 PM ESTGender IdentityNot on fileSexual OrientationNot on file Last Filed Vital Signs Vital SignReadingTime TakenCommentsBlood Henwvswo542/6409/22/2023 12:05 PM EST Iuapl568909/22/2023 12:05 PM VHWRuiunxdkurk53.3 ??C (97.3 ??F)09/22/2023 12:05 PM ESTRespiratory Zrvn483911/23/2022 12:05 PM ESTOxygen Znqphoblon28%09/22/2023 12:05 PM ESTInhaled Oxygen Concentration--Khcbzc17 kg (213 lb 13.5 oz)09/17/2023 5:55 PM YNHVlzxhk500.8 cm (5' 10 )09/17/2023 5:55 PM ESTBody Mass Index30.68 09/17/2023 5:55 PM EST Plan of Treatment Health MaintenanceDue DateLast DoneCommentsDepression Rhtaxc4101/25/1973HIV screen 01/26/1976Hepatitis C irnvva0301/25/19790830Vdmxqe88/06/0361Hdhncrtnzjc20/06/2006 Colorectal Cancer Cyzvml7101/25/2006FIT/FOBT: Average risk2006Fecal-DNA (Cologuard): Average risk2006Sigmoidoscopy/CT hyxablbygvhy87/06/2006 Pneumococcal 50+ years Vaccine (1 of 1 - PCV)2011Shingles vaccine (1 of 2) 2011DTaP/Tdap/Td vaccine (2 - Td or Tdap)/nnual Wellness Visit (Medicare Advantage)10/22/2024Flu vaccine (#1)5COVID-19 Vaccine ( season)/, 03/23/2021, 02/23/2021 Respiratory Syncytial Virus (RSV) or age 60 yrs+ (1 - 1-dose 75+ series)01/26/2036Hepatitis A vaccineAged OutNo longer eligible based on patient's age to complete this topicHepatitis B vaccineAged OutNo longer eligible based on patient's age to complete this topicHib vaccineAged OutNo longer eligible based on patient's age to complete this topicMeningococcal (ACWY) vaccineAged OutNo longer eligible based on patient's age to complete this topicMeningococcal B vaccineAged OutNo longer eligible based on patient's age to complete this topicPolio vaccineAged OutNo longer eligible based on patient's age to complete this topic Insurance * Guarantor: Clem Triplett AAccount TypeRelation to PatientDate of BirthPhone Billing AddressPersonal/VlsoltOwxd1960 [address] [place] [address] Advance Directives * Full Code (Latest Code Status on File) Date ActivatedDate ZiprffuysphQlrhaozj10/27/2023 5:55 PM09/22/2023 7:23 PM Care Teams Team MemberRelationshipSpecialtyStart DateEnd Date Senthil Caba PA-C [address] [place] [address] PCP - GeneralFamily Vevsymsb50/28/23
--- OUTSIDE RECORDS SUMMARY | 2025-08-12 12:54 | XMS_ITS | Patient Health Record ---
Author Organization [facility] Address [address] [address], [place] [address] Care Team Providers Care Zinc Etcher Name Role Phone Armando Panda Unavailable [phone] Allergies Allergen (clinical drug ingredient) Drug/Non Drug Allergy documented on EMR Reaction Allergy Type Onset Date Status PenicillinUnknownDrug AllergyActive Reason For Referral No Information Medications Medication SIG (Take, Route, Frequency, Duration) Notes Start Date End Date Status Tylenol ActiveVitamin V6QyoolvXoaidxhzlm Tartrate 25 MG TabletOral; Duration: 90 Days ActiveClopidogrel Bisulfate 75 MG Tablet1 tablet Orally Once a dayActiveVitamin EActivetiZANidine HClActiveCalcium CarbonateActiveDULoxetine HClActiveFurosemide ActiveIronActiveOmega 3ActiveOmeprazoleActiveOndansetronActivetraZODone HCl 50 MG Tablet1 tablet at bedtime as needed Orally Once a dayActive Problems Problem Type SNOMED Code ICD Code Onset Dates Problem Status W/U Status Risk Notes Problem Acquired hallux rigidus (9108837) Hallux rigidus, right foot (M20.21) ActiveconfirmedProblemAcquired hammer toe of right foot (8692995751492811)Other hammer toe(s) (acquired), right foot (M20.41)ActiveconfirmedProblemPeripheral vascular disease (481402116)Peripheral vascular disease, unspecified (I73.9) Activeconfirmed Encounters Encounter Location Date Provider Diagnosis [facility] [address] [address], [facility] [place] [address] 08/06/2025 Armando Panda Hallux rigidus, right foot M20.21 ; [...] to discuss next steps Plan Of Treatment No Information Insurance Providers Payer Name Payer Address Payer Phone Subscriber Number Group Number Insured Name Patient Relationship to Insured Coverage Start Date Coverage End Date [employer] Medicare [address] [address] [place] [address] [id number] Nicole Triplett - patient is the insured Medical (General) History Medical History History ICD Code Hepatic encephalopathy SeizuresArthritisSurgical History Surgery Date(Month/Year) Left Knee x 2
--- OUTSIDE RECORDS SUMMARY | 2025-08-12 12:54 | XMS_ITS | Clinical Summary ---
Author Organization [facility] Address [address] [place] [address] Phone Care Team Providers Care Soil Tester Name Role Phone Unavailable Primary Care Provider Unavailabl e Social History Tobacco UseTypesPacks/DayYears UsedDateSmoking Tobacco: Never AssessedSex and Gender InformationValueDate RecordedSex Assigned at BirthNot on fileLegal Sex Male09/16/2022 7:23 PM ESTGender IdentityNot on fileSexual OrientationNot on file Plan of Treatment Not on file
--- OUTSIDE RECORDS SUMMARY | 2025-08-12 12:55 | XMS_ITS | Clinical Summary ---
Author Organization [facility] Address [id number] [address] [place] [address] Care Team Providers Care Geological Science Teacher Name Role Phone Senthil Caba PA-C Primary Care Provider Allergies Active AllergyReactionsCriticalityNoted WhygMsdagejwBbipbSxrmEsh43/04/2022Nickel Other (See Comments)08/25/20225220XfxotyowicrBorvGli08/06/2018 Medications MedicationSigDispense QuantityRefillsLast FilledStart DateEnd DateStatus clopidogreL (PLAVIX) 75 mg tablet Take 1 tablet (75 mg total) by mouth in the morning.Active thiamine HCl (vitamin B-1) 100 mg tablet Take 1 tablet (100 mg total) by mouth in the morning.Active cyanocobalamin (vitamin B-12) 1000 MCG tablet Take 1 tablet (1,000 mcg total) by mouth in the morning.Active CALCIUM CARBONATE-VITAMIN D3 ORAL Take 1 capsule by mouth in the morning. 1200mg-25mcg.Active DULoxetine (CYMBALTA) 60 mg capsule Take 1 capsule (60 mg total) by mouth in the morning.Active gabapentin (NEURONTIN) 400 mg capsule Indications:Polyneuropathy, unspecifiedTake 1 capsule (400 mg total) by mouth in the morning and 1 capsule (400 mg total) before bedtime. 10 capsule 02/26/2023ctive levETIRAcetam (KEPPRA) 250 mg tablet Take 5 tablets (1,250 mg total) by mouth in the morning and 5 tablets (1,250 mg total) before bedtime. 60 tablet 02/26/2023ctive metoprolol tartrate (LOPRESSOR) 25 mg tablet Take 1 tablet (25 mg total) by mouth in the morning and 1 tablet (25 mg total) before bedtime. 60 tablet 02/26/2023ctive folic acid (FOLVITE) 1 mg tablet Take 1 tablet (1 mg total) by mouth in the morning. 30 tablet 02/26/2023ctive magnesium oxide (MAGOX) 400 mg tablet Take 1 tablet (400 mg total) by mouth in the morning and 1 tablet (400 mg total) before bedtime. 60 tablet 02/26/2023ctive Active Problems ProblemNoted DateDiagnosed JxaeKqzmdfnj39/14/3067Jusvgfhdmpydbuc84/14/2023 Alcohol kzqlybuuva19/15/2023cute respiratory failure with ipviimn9502/02/2023 Acute hypoxemic respiratory tklbjqv9812/03/20220484Vqebbnrcs79/07/2022Intertriginous dermatitis associated with fffyfchp63/07/2022evere owtsaatevojd61/07/2022 Xtmdjkuaijcc91/05/2022ellulitis of right upper chyodncxx65/05/2022UTI (urinary tract infection)08/25/2022Gastroesophageal reflux disease without esophagitis 08/25/2022kin mxabjjfpw26/07/7305Lhkehjkzvowb28/30/2021Incontinence associated cawufnbdre65/22/2021Generalized sylcmiua22/21/2021Failure to thrive in adult 1Radiculopathy, lumbar ibomkj6105/05/2020Polyneuropathy, unspecified 05/02/2020Intracranial bleed07/06/2019Status epilepticusHypokalemia Immunizations ImmunizationAdministration DatesNext DuePPD Test08/30/2022Tdap07/05/2019( Deferred: - Pt states had one 2 years ago when he was bitten by his dog and had a laceration repairdone.),09/04/2014 Family History Medical HistoryRelationNameCommentsAlcohol abuseFatherCancerFatherthroatLung cancerFatherHeart diseaseMotherHeart failureMotherRelationNameStatusComments FatherMother Social History Tobacco UseTypesPacks/DayYears UsedDateSmoking Tobacco: FormerCigarettesQuit: 10/22/2011Smokeless Tobacco: Never Tobacco Cessation:Counseling Given: Not Answered Alcohol UseStandard Drinks/WeekCommentsNot Currently0 (1 standard drink = 0.6 oz pure alcohol)UDIT-CAnswerDate RecordedQ1: How often do you have a drink containing alcohol?Never08/25/2022Q2: How many drinks containing alcohol do you have on a typical day when you are drinking?Patient does not drink08/25/2022Q3: How often do you have six or more drinks on one occasion?Never08/25/2022verall Financial Resource Strain (CARDIA)AnswerDate RecordedHow hard is it for you to pay for the very basics like food, housing, medical care, and heating?Not hard at all08/25/2022HQ-2AnswerDate RecordedTotal Lxfyp0407/28/2023[facility] [place] [facility] Occup[facility] - Occupational Stress QuestionnaireAnswerDate RecordedDo you feel stress - tense, restless, nervous, or anxious, or unable to sleep at night because yourmind is troubled all the time - these days?Rather much 08/25/2022Exercise Vital SignAnswerDate RecordedOn average, how many days per week do you engage in moderate to strenuous exercise (like a brisk walk)?3 days 08/25/2022n average, how many minutes do you engage in exercise at this level? 20 min08/25/2022RAPARE - TransportationAnswerDate RecordedIn the past 12 months, has lack of transportation kept you from medical appointments or from getting medications?No08/25/2022In the past 12 months, has lack of transportation kept you from meetings, work, or from getting things needed for daily living?No08/25/2022hildcareAnswerDate AtsmbiqeEifbfocmmBsydbuj09/12/2019 EmploymentAnswerDate RecordedDo you need help finding a local career center and/or a training program?No08/25/2022Hunger ScreeningAnswerDate RecordedWithin the past 12 months we worried whether our food would run out before we got money to buy more.Never True07/05/2023Within the past 12 months the food we bought just didn't last and we didn't have money to get more.Never True07/05/2023 Purpose - LifeAnswerDate RecordedI have a purpose and direction in my life. Strongly Agree08/25/2022ex and Gender InformationValueDate RecordedSex Assigned at BirthNot on fileLegal VmeEgvh3605/27/2015 11:57 AM EDTGender IdentityNot on fileSexual OrientationNot on file Last Filed Vital Signs Vital SignReadingTime TakenCommentsBlood Gigxqvzy933/8510/04/2023 11:25 AM EST Vjebt132610/04/2023 11:25 AM MUWCwmneszzghb31.6 ??C (97.8 ??F)10/04/2023 11:25 AM ESTRespiratory Abdn726110/04/2023 11:25 AM ESTOxygen Luscnlrmxm70%10/04/2023 11:25 AM ESTInhaled Oxygen Concentration--Yytgwt522.9 kg (222 lb 6.4 oz)10/04/2023 11:25 AM MHBMsyooq168.8 cm (5' 10 )10/04/2023 11:25 AM ESTBody Mass Index31.91 10/04/2023 11:25 AM EST Plan of Treatment Health MaintenanceDue DateLast DoneCommentsTobacco Kedtaafon95/06/1973Zoster (Shingles) Vaccine (1 of 2)2011Depression Trymbiaia16 DTaP,Tdap and Td Vaccines (2 - Td or Tdap)dult BMI Vzfccscdn99OVID-19 Vaccine ( season)2025 01/08/2022, 03/23/2021, 02/23/2021Influenza Vpxrqqm7706/22/2025 Goals GoalPatient Goal TypeAssociated ProblemsRecent ProgressPatient-Stated?Author Discharge to SNF Taylor Carter LISW Note: Evaluation of progress towards goal: Pt/SO plan for discharge to [facility] Carmen Larsen, RN Note: Evaluation of progress towards goal: Patient plans to discharge to SNF and then return home with his caregiver. [facility] Raul Oneill Note: Evaluation of progress towards goal: DC to [facility] Decrease the likelihood of falling Kyleigh Lee, RODOLFO Note: Below are four things you [...] & adding grab bars in the bathroom ?? Having good lighting, especially on stairs Contact your local community or senior center for information on exercise, fall prevention programs, or options for improving home safety. Medical Devices Not on file Insurance * Guarantor: Clem Triplett AAccount TypeRelation to PatientDate of BirthPhone Billing AddressPersonal/NzaddtXmtg1960 [address] [place] [address] Advance Directives * Full Code (Latest Code Status on File) Date ActivatedDate InactivatedComments02/02/2023 11:21 PM02/26/2023 5:10 PM * Full Code Date ActivatedDate InactivatedComments12/03/2022 2:16 AM12/08/2022 8:33 PM * Full Code Date ActivatedDate MdwckxzsgbyPtjpmpas31/4/2022 8:32 PM08/31/2022 12:22 AM * Full Code Date ActivatedDate DmchedegqaiNnyatokk18/4/2022 1:46 PM08/25/2022 8:12 PM * Full Code Date ActivatedDate InactivatedComments01/09/2021 12:44 AM4/10/2020 6:38 PM Care Teams Team MemberRelationshipSpecialtyStart DateEnd Senthil aCba, DORIE [address] [place] [address] PCP - GeneralPhysician Assistant02/02/23
--- OUTSIDE RECORDS SUMMARY | 2025-08-12 12:55 | XMS_ITS | CCD ---
Author Organization [facility] Care Team Providers Care Mortar Mixer Name Role Phone ETELVINA WRIGHT Admitting Unavailable ETELVINA WRIGHT Attending Unavailable ETELVINA WRIGHT Consulting Unavailable PROVIDER, UNKNOWN Attending Unavailable PROVIDER, UNKNOWN Admitting Unavailable GIORGIO DUBOIS Consulting Unavailable LACHELLE CABA Primary Care Unavailable BERKLEY GARZA Attending Unavailable BERKLEY GARZA Admitting Unavailable Lachelle Ngo Unavailable Coleman MCCORMACK, Marialuisa Unavailable Michael Martinez MD Primary Care Provider Anila Goldman Unavailable ANILA VICTORIA Attending Unavailable YUKO, ANILA Attending Unavailable YUKO, ANILA Attending Unavailable YUKO, ANILA Attending Unavailable YUKO, ANILA Referring Unavailable YUKO, ANILA Attending Unavailable YUKO, ANILA Attending Unavailable ETHAN BAEZA Attending Unavailable Allergies Allergy ClassificationReported Allergen(s)Allergy TypeDate of OnsetReaction(s) Facility (19 sources)LatexPropensity to adverse xbhhxnaum11-33-8194Ludhv, RashSt. [facility] ([facility] sources)nickel sulfateDrug Onbdajo54-43-7184BsjucrwXYUT Healthcare (19 sources)PenicillinsDrug Sjxxnwowxyl21-69-0514GG intolerance, Rash, Unknown [facility] (19 sources)SulfanilamideAllergy to mbnitzxub18-20-7918JiipvtxPQGR Healthcare Medications Current Medications MedicationDrug Class(es)DatesSig (Normalized)Sig (Original)Calcium (19 sources)Phosphate Binder, Calciumcalcium 200 MG tablet Calcium ActiveCalcium Carbonate Antacid (CALCIUM CARBONATE PO) (19 sources)take 1 capsule by mouth in the morningCalcium Carbonate Antacid (CALCIUM CARBONATE PO) Take 1 capsule by mouth in the morning. Activeclopidogrel 75 mg oral tablet (19 sources)P2Y12 Platelet Inhibitorclopidogrel (Plavix) 75 MG tablet 1 (one) time each day at the same time. Activeescitalopram 10 mg oral tablet (2 sources)Serotonin Reuptake InhibitorStart: 02-09-2025 End: 30-75-7771hqke 1 tablet by mouth once dailyescitalopram (Lexapro) 10 MG tablet Indications: Anxiety and depression (CMS/HCC) Take 1 tablet (10mg) by mouth Daily 30 tablet 2 02/09/2025 05/10/2025 Activefamotidine 40 mg oral tablet (19 sources)Histamine-2 Receptor Antagonisttake 1 tablet by mouth at bedtime famotidine (Pepcid) 40 MG tablet take 1 tablet by mouth at bedtime Oral for 90 ActiveFish Oils (19 sources)omega-3 (FISH OIL) 300 MG capsule Fish Oil Activegabapentin 100 mg oral capsule (20 sources)Anti-epileptic AgentStart: 09-23-2024 End: 52-70-1423mkla 2 capsules by mouth in the morninggabapentin (Neurontin) 100 MG capsule Indications: Polyneuropathy Take 2 capsules (200 mg) by mouthin the morning and 2 capsules (200 mg) before bedtime. Due 03/29/25. 360 capsule 1 01/08/2025 04/08/2025 ActiveStart: 06-24-2024 End: 30-70-2414whjc 2 capsules by mouth in the morninggabapentin (Neurontin) 100 MG capsule Indications: Polyneuropathy Take 2 capsules (200 mg) by mouthin the morning and 2 capsules (200 mg) before bedtime. Due 07/08/24. 120 capsule 1 07/24/2024 ActiveStart: 06-18-2024 End: 07-54-1435iqhd 1 tablet by mouth once daily in the morning, then take 2 tablets by mouth once daily at bedtimegabapentin (Neurontin) 100 MG capsule Indications: Polyneuropathy , Lumbosacral radiculopathy 1 tabPO QAM And 2 tabs PO QHS 90 capsule 1 06/18/2024 06/24/2024 Discontinued (Reorder)Start: 06-30-2023 End: 52-24-7292avdo 1 capsule by mouth at bedtimegabapentin (Neurontin) 300 MG capsule Take 300 mg by mouth at bedtime. 06/30/2023 06/18/2024 Discontinued (Reorder)lamoTRIgine 25 mg oral tablet (18 sources)Mood Stabilizer, Anti-epileptic AgentStart: 09-17-2024 End: 11-65-6126ywnz 3 tablets by mouth twice dailylamoTRIgine (LaMICtal) 25 MG tablet Indications: Seizure (CMS/HCC) 3 tabs PO BID 540 tablet 1 01/08/2025 ActiveStart: 07-24-2024 End: 12-31-4360hkgj 1 tablet by mouth twice daily in the morning, then take 1 tablet by mouth once daily in the morning, then take 2 tablets by mouth at bedtime, then take 2 tablets by mouth twice dailylamoTRIgine (LaMICtal) 25 MG tablet Indications: Seizure (CMS/HCC) Take 1 tablet (25 mg) by mouth in the morning and 1 tablet (25 mg) before bedtime. 25mg PO daily for 7 days, then 25mg PO BID for 7 days, then 1 tab PO QAM and 2 tabs PO at bedtime for 7 days, then 2 tabs PO BID thereafter. 120 tablet 2 07/24/2024 09/17/2024 Discontinued (Reorder)levETIRAcetam 250 mg oral tablet (20 sources)Start: 07-24-2024 End: 32-57-4297adrm 1 tablet by mouth twice daily in the morninglevETIRAcetam (Keppra) 250 MG tablet Indications: Seizure (CMS/HCC) Take 1 tablet (250 mg) by mouthin the morning and 1 tablet (250 mg) before bedtime. In addition to 1000mg BID. 180 tablet 2 01/08/2025 04/08/2025 ActiveStart: 07-24-2024 End: 96-95-4759cglk 1 tablet by mouth in the morninglevETIRAcetam (Keppra) 1000 MG tablet Indications: Seizure (CMS/HCC) Take 1 tablet (1,000 mg) by mouth in the morning and 1 tablet (1,000 mg) before bedtime. 180 tablet 2 01/08/2025 04/08/2025 ActiveStart: 02-26-2023 End: 72-97-8602jubr 5 tablets by mouth in the morninglevETIRAcetam (Keppra) 250 MG tablet Take 1,250 mg by mouth in the morning and 1,250 mg in the evening. 02/26/2023 07/24/2024 Discontinued (Reorder)metoprolol tartrate 25 mg oral tablet (20 sources)beta-Adrenergic BlockerStart: 58-22-8858uhhr 1 tablet by mouth in the morningmetoprolol tartrate (Lopressor) 25 MG tablet Take 25 mg by mouth in the morning and 25 mg before bedtime. 09/25/2024 Activemetoprolol succinate XL (Toprol-XL) 25 MG 24 hr tablet 1 (one) time each day at the same time. Active tiZANidine 4 mg oral tablet (19 sources)Central alpha-2 Adrenergic AgonistStart: 06-28-2838alWPYqgbem (Zanaflex) 4 MG tablet every 12 (twelve) hours. 06/18/2023 ActivetraZODone hydrochloride 50 mg oral tablet (19 sources)Serotonin Reuptake InhibitortraZODone (Desyrel) 50 MG tablet 1 (one) time each day at the same time. Activevitamin b12 1 mg oral tablet (19 sources)Vitamin L02eeax 1 tablet by mouth in the morningcyanocobalamin (Vitamin B-12) 1000 MCG tablet Take 1,000 mcg by mouth in the morning. Active Problems Active Problems Problem ClassificationProblemDateDocumented DateEpisodic/ChronicAnxiety disorders (2 sources)Mixed anxiety and depressive disorder; Translations: [Anxiety disorder, unspecified]39-90-3842NeufqosBejocozehh associated with dizziness or vertigo (4 sources)Dizziness; Translations: [Dizziness and giddiness]75-33-2517Wnttkwbc Epilepsy; convulsions (17 sources)Localization-related (focal) (partial) symptomatic epilepsy and epileptic syndromes with complex partial seizures, not intractable, with status epilepticus; Translations: [Epilepsy, unspecified, intractable, without status epilepticus]Onset: 266492-11-2120MrzkoxsAmrqeajz; convulsions (20 sources)Unspecified convulsions; Translations: [Seizure]Onset: 09-17-2023 70-36-5811VlfszlicVucrhysrl hypertension (4 sources)Essential (primary) hypertension; Translations: [ESSENTIAL PRIMARY HYPERTENSION]Onset: 14-53-4678HyxqgygVltvj connective tissue disease (2 sources)Lateral epicondylitis of left humerus; Translations: [Lateral epicondylitis, left elbow]89-17-9664JwvnrpgfPbwge nervous system disorders (20 sources)Polyneuropathy; Translations: [Polyneuropathy, unspecified]Onset: 642659-02-6254VulzccsEvomt nervous system disorders (20 sources)Sensory ataxia ; Translations: [Other lack of coordination]Onset: 257301-54-4149OwwwwoxfCrukl non-traumatic joint disorders (2 sources)Pain in elbow; Translations: [Pain in left elbow]06-46-4143Vinxgvqq Skin and subcutaneous tissue infections (1 source)Cellulitis of right upper limb; Translations: [CELLULITIS OF RIGHT UPPER LIMB]Onset: 60-27-0336Fwiqmjiy Past or Other Problems Problem ClassificationProblemDateDocumented DateEpisodic/ChronicOther injuries and conditions due to external causes (15 sources)Closed injury of head; Translations: [Unspecified injury of head, initial encounter]Onset: 740620-14-8511MxwwxejxAqvdi nervous system disorders (15 sources)Paresthesia; Translations: [Paresthesia of skin]Onset: 07-21-2024 32-33-7325BrfrxokvSuofg nervous system disorders (20 sources)Tremor; Translations: [Tremor, unspecified]Onset: 07-21-2024 01-78-3574RudrntmhAcchwhqx codes; unclassified (19 sources)Insomnia; Translations: [Insomnia, unspecified]Onset: 07-21-2024 99-00-7872PhoqxayoExpqxpbizzw; intervertebral disc disorders; other back problems (20 sources)Lumbar radiculopathy; Translations: [Radiculopathy, lumbar region] Onset: 536284-15-6228Cpugssod Results Test NameValueInterpretationReference RangeFacilityBasic Metabolic Profon 65-14-3907Dlyzh gap [Moles/Vol]14 mmol/LNormal9-17Uk HealthcareComment on above:Performed By: #### BMP, CBC #### [facility] [address] [place] [address] Aluminum Sheet Cutter: SHELBIE Liebermanalcium [Mass/Vol]8.9 mg/dLNormal8.6-10.4Uk HealthcareComment on above:Performed By: #### BMP, CBC #### [facility] [address] [place] [address] Aluminum Sheet Cutter: SHELBIE Liebermanhloride [Moles/Vol]96 mmol/KObe98-928BronsUk HealthcareComment on above:Performed By: #### BMP, CBC #### [facility] [address] [place] [address] Aluminum Sheet Cutter: Anam Keith MDCO2 [Moles/Vol]22 mmol/AQftbmc93-05GeoxsUk HealthcareComment on above:Performed By: #### BMP, CBC #### [facility] [address] [place] [address] Aluminum Sheet Cutter: SHELBIE Liebermanreatinine [Mass/Vol]0.5 mg/dLLow0.7-1.2MSan Clemente Hospital and Medical CenterComment on above:Performed By: #### BMP, CBC #### [facility] [address] [place] [address] Aluminum Sheet Cutter: Anam Keith MDGFR/1.73 sq M.predicted among non-blacks MDRD (S/P/Bld) [Vol rate/Area]mL/min/{1.73_m2}Normal>60Uk HealthcareComment on above:Result Comment: These results are not intended for [...] or following therapy that affects renal tubular secretion.Performed By: #### BMP, CBC #### [facility] [address] [place] [address] Aluminum Sheet Cutter: Anam Keith MDGlucose [Mass/Vol]114 mg/iGOczl00-99AuluuSan Clemente Hospital and Medical CenterComment on above:Performed By: #### BMP, CBC #### [facility] [address] [place] [address] Aluminum Sheet Cutter: Anam Keith MDPotassium [Moles/Vol]3.8 mmol/LNormal3.7-5.3 Uk HealthcareComment on above:Performed By: #### BOB, CBC #### [facility] [address] [place] [address] Aluminum Sheet Cutter: Anam Keith MDSodium [Moles/Vol]132 mmol/HKyh290-977RjlqeUk HealthcareComment on above:Performed By: #### BOB, CBC #### [address] [address] Aluminum Sheet Cutter: Anam Keith MDUrea nitrogen [Mass/Vol]3 mg/dLLow8-23Uk HealthcareComment on above:Performed By: #### BOB, CBC #### [address] [address] Aluminum Sheet Cutter: Natalya Lieberman 26-39-0389Jivcyqolqch distribution width (RBC) [Ratio]15.9 %High11.8-14.4Uk HealthcareComment on above:Performed By: #### BOB, CBC #### [facility] [address] [place] [address] Aluminum Sheet Cutter: Anam Keith MDHematocrit (Bld) [Volume fraction]43.6 %Normal 40.7-50.3MSan Clemente Hospital and Medical CenterComment on above:Performed By: #### BOB, CBC #### [facility] [address] [place] [address] [phone] Aluminum Sheet Cutter: Anam Keith MDHemoglobin (Bld) [Mass/Vol]14.4 g/dLNormal 13.0-17.0Uk HealthcareComment on above:Performed By: #### BMP, CBC #### [address] [address] Aluminum Sheet Cutter: MARCELINA LiebermanCH (RBC) [Entitic mass]33.4 jaMeiueq18.2-33.5 Uk HealthcareComment on above:Performed By: #### BMP, CBC #### [place] [address] Aluminum Sheet Cutter: MARCELINA LiebermanCHC (RBC) [Mass/Vol]33.0 g/qNQyytoe59.4-34.8 Uk HealthcareComment on above:Performed By: #### BMP, CBC #### [place] [address] Aluminum Sheet Cutter: MARCELINA LiebermanCV (RBC) [Entitic vol]101.2 pFCzimnb86.6-102.9 Uk HealthcareComment on above:Performed By: #### BMP, CBC #### [place] [address] Aluminum Sheet Cutter: Anam Keith MDNRBC Automated0.0 per 100 WBCNormal0.0Uk HealthcareComment on above:Performed By: #### BMP, CBC #### [place] [address] Aluminum Sheet Cutter: KESHIA Liebermanlatelet mean volume (Bld) [Entitic vol]10.6 fL Normal8.1-13.5Uk HealthcareComment on above:Performed By: #### BMP, CBC #### [place] [address] Aluminum Sheet Cutter: Jude Liebermantechildren's island sanitarium ([facility]) [#/Vol]204 10*3/cWDwijyy882-059 Uk HealthcareComment on above:Performed By: #### BOB, CBC #### [facility] [address] [place] [address] Aluminum Sheet Cutter: AUDREY LiebermanBC ([facility]) [#/Vol]4.31 10*6/uLNormal4.21-5.77 Uk HealthcareComment on above:Performed By: #### BOB, CBC #### [facility] [address] [place] [address] Aluminum Sheet Cutter: AZEB Lieberman ([facility]) [#/Vol]10.1 10*3/uLNormal3.5-11.3MSan Clemente Hospital and Medical CenterComment on above:Performed By: #### BOB, CBC #### [facility] [address] [place] [address] Aluminum Sheet Cutter: Lavonne Lieberman Metabolic Profon 15-44-3111Lqzho gap [Moles/Vol]14 mmol/LNormal9-17Uk HealthcareComment on above: Performed By: #### BOB, CBC ####[facility] [address] [place], [place] [phone] Director: SHELBIE Liebermanalcium [Mass/Vol]8.6 mg/dL Normal8.6-10.4Uk HealthcareComment on above:Performed By: #### BMP, CBC ####[facility] [address] [place], [place] [phone] Director: SHELBIE Liebermanhloride [Moles/Vol]98 mmol/RGmfhjq86-581 Uk HealthcareComment on above:Performed By: #### BMP, CBC ####[facility] [address] [place], [place] [phone] Director: Anam Keith MDCO2 [Moles/Vol]19 mmol/GTaz09-07EimboUk HealthcareComment on above:Performed By: #### BMP, CBC ####[facility] [address] [place], [place] [phone] Director: Anam Keith MD Creatinine [Mass/Vol]0.5 mg/dLLow0.7-1.2[facility] CampusComment on above:Performed By: #### BMP, CBC ####[facility] [address] [place] [address] [phone] Director: Anam Keith MDGFR/1.73 sq M.predicted among non-blacks MDRD (S/P/Bld) [Vol rate/Area]mL/min/{1.73_m2} Normal>60Uk HealthcareComment on above:Result Comment: These results are not intended for [...] or following therapy that affects renal tubular secretion.Performed By: #### BMP, CBC ####[facility] [address] [place] [address] [phone] Director: Anam Keith MDGlucose [Mass/Vol]78 mg/nXMkrmua37-29Icvpr [facility] CampusComment on above:Performed By: #### BMP, CBC ####[facility] [address] [place], [place] [phone] Director: KESHIA Liebermanotassium [Moles/Vol]4.2 mmol/LNormal3.7-5.3[facility] CampusComment on above:Performed By: #### BMP, CBC ####[facility] [address] [place], [place] [phone] Director: FREDERICK Liebermanodium [Moles/Vol]131 mmol/HSwm300-355KlxcyUk HealthcareComment on above:Performed By: #### BMP, CBC ####[facility] [address] [place] [phone] Director: Anam Keith MDUrea nitrogen [Mass/Vol]2 mg/dLLow8-23Uk HealthcareComment on above:Performed By: #### BMP, CBC ####[facility] [address] [place] [address] Lab Director: Natalya Lieberman 62-80-0722Vnbxcjvhodp distribution width (RBC) [Ratio]15.9 %High 11.8-14.4Uk HealthcareComment on above:Performed By: #### BOB, CBC #### [facility] [address] [place] [address] Aluminum Sheet Cutter: Anam Keith MDHematocrit (Bld) [Volume fraction]48.1 %Normal 40.7-50.3Mselect medical specialty hospital - trumbully [facility] CampusComment on above:Performed By: #### BOB, CBC #### [facility] [address] [place] [address] Aluminum Sheet Cutter: Anam Keith MDHemoglobin (Bld) [Mass/Vol]15.3 g/dLNormal 13.0-17.0Uk HealthcareComment on above:Performed By: #### BMP, CBC #### [facility] [address] [place] [address] Aluminum Sheet Cutter: MARCELINA LiebermanCH (RBC) [Entitic mass]33.9 cdWzfr72.2-33.5 Uk HealthcareComment on above:Performed By: #### BMP, CBC #### [facility] [address] [place] [address] Aluminum Sheet Cutter: MARCELINA LiebermanCHC (RBC) [Mass/Vol]31.8 g/bEOhdibv77.4-34.8 Uk HealthcareComment on above:Performed By: #### BMP, CBC #### [facility] [address] [place] [address] Aluminum Sheet Cutter: Anam Keith MDMCV (RBC) [Entitic vol]106.7 oBMvca60.6-102.9 Uk HealthcareComment on above:Performed By: #### BMP, CBC #### [facility] [address] [place] [address] Aluminum Sheet Cutter: AB Lieberman Automated0.0 per 100 WBCNormal0.0Uk HealthcareComment on above:Performed By: #### BMP, CBC #### [facility] [address] [place] [address] Aluminum Sheet Cutter: KESHIA Liebermanlatelet mean volume (Bld) [Entitic vol]10.0 fL Normal8.1-13.5Uk HealthcareComment on above:Performed By: #### BOB, CBC #### [facility] [address] [place] [address] Aluminum Sheet Cutter: Anam Keith MDPlatelets (Bld) [#/Vol]172 10*3/oXRmvxok214-799 Uk HealthcareComment on above:Performed By: #### BMP, CBC #### [facility] [address] [place] [address] Aluminum Sheet Cutter: Anam Keith MDRBC (Bld) [#/Vol]4.51 10*6/uLNormal4.21-5.77 Uk HealthcareComment on above:Performed By: #### BMP, CBC #### [facility] [address] [place] [address] Aluminum Sheet Cutter: OPAL LiebermanBC (Bld) [#/Vol]10.3 10*3/uLNormal3.5-11.3Mselect medical specialty hospital - trumbully [facility] CampusComment on above:Performed By: #### BOB, CBC #### [facility] [address] [place], [place] [phone] Aluminum Sheet Cutter: SUSAN Lieberman MODIFIED BARIUM SWALLOW W VIDEOon 09-20-2023 [place] MODIFIED BARIUM SWALLOW W VIDEOEXAMINATION: MODIFIED BARIUM SWALLOW WAS PERFORMED IN CONJUNCTION WITH SPEECH PATHOLOGY SERVICES TECHNIQUE: Under fluoroscopic evaluation cineradiography/videoradiography recordings were performed in conjunction with the speech-language pathologist (SENIOR ADMINISTRATIVE SUPPORT). Various liquid, solid and/or semi-solid barium preparations were used to assess swallowing function. FLUOROSCOPY DOSE AND TYPE: Radiation Exposure Index: DAP 14.841kKkpy1, COMPARISON: None HISTORY: ORDERING SYSTEM PROVIDED HISTORY: Assess swallow TECHNOLOGIST PROVIDED HISTORY: Assess swallow FINDINGS: Thin liquid: Given by straw there is flash laryngeal penetration. No aspiration. Thick liquid: [place] thick liquid given by straw no laryngeal [...] Signed by: Beka Farris MD 09/20/23 Final resultNormalUk HealthcareBasic Metabolic Profon 14-59-8065Bolqi gap [Moles/Vol]8 mmol/LLow9-17Uk [facility] Comment on above:Performed By: #### RAKESH, BMP #### [facility] [address] [place] [address] Aluminum Sheet Cutter: SHELBIE Liebermanalcium [Mass/Vol]8.7 mg/dLNormal8.6-10.4Uk HealthcareComment on above:Performed By: #### RAKESH, BMP #### [facility] [address] [place], [place] [phone] Aluminum Sheet Cutter: Anam Madoff, MDChloride [Moles/Vol]97 mmol/MTgu26-891OpswmUk HealthcareComment on above:Performed By: #### CBC, BMP #### [facility] [address] [place] [address] Aluminum Sheet Cutter: Anam Keith MDCO2 [Moles/Vol]24 mmol/ALbezic67-68MjsazUk HealthcareComment on above:Performed By: #### CBC, BMP #### [facility] [address] [place] [address] Aluminum Sheet Cutter: SHELBIE Liebermanreatinine [Mass/Vol]0.6 mg/dLLow0.7-1.2MSan Clemente Hospital and Medical CenterComment on above:Performed By: #### CBC, BMP #### [facility] [address] [place] [address] Aluminum Sheet Cutter: Anam Keith MDGFR/1.73 sq M.predicted among non-blacks MDRD (S/P/Bld) [Vol rate/Area]mL/min/{1.73_m2}Normal>60Uk HealthcareComment on above:Result Comment: These results are not intended for [...] or following therapy that affects renal tubular secretion.Performed By: #### CBC, BMP #### [facility] [address] [place] [address] Aluminum Sheet Cutter: Anam Keith MDGlucose [Mass/Vol]81 mg/sKUdnqnt65-48EwvwxSan Clemente Hospital and Medical CenterComment on above:Performed By: #### CBC, BMP #### [facility] [address] [place] [address] Aluminum Sheet Cutter: Anam Keith MDPotassium [Moles/Vol]4.2 mmol/LNormal3.7-5.3 Uk HealthcareComment on above:Performed By: #### CBC, BMP #### [address] [address] Aluminum Sheet Cutter: FREDERICK Liebermanodium [Moles/Vol]129 mmol/ULym486-425BlljuUk HealthcareComment on above:Performed By: #### CBC, BMP #### [address] [address] Aluminum Sheet Cutter: Anam Keith MDUrea nitrogen [Mass/Vol]4 mg/dLLow8-23Uk HealthcareComment on above:Performed By: #### CBC, BMP #### [address] [address] Aluminum Sheet Cutter: Natalya Lieberman 53-82-6139Cxkkjecylzz distribution width (RBC) [Ratio]15.9 %High11.8-14.4Uk HealthcareComment on above:Performed By: #### CBC, BMP #### [place] [address] Aluminum Sheet Cutter: Anam Keith MDHematocrit (Bld) [Volume fraction]42.7 %Normal 40.7-50.3MSan Clemente Hospital and Medical CenterComment on above:Performed By: #### CBC, BMP #### [address] [address] Aluminum Sheet Cutter: Anam Keith MDHemoglobin (Bld) [Mass/Vol]14.1 g/dLNormal 13.0-17.0Uk HealthcareComment on above:Performed By: #### CBC, BMP #### [address] [address] Aluminum Sheet Cutter: MARCELINA LiebermanCH (RBC) [Entitic mass]33.7 wrStzu19.2-33.5 Uk HealthcareComment on above:Performed By: #### CBC, BMP #### [place] [address] Aluminum Sheet Cutter: MARCELINA LiebermanCHC (RBC) [Mass/Vol]33.0 g/eQAazcql53.4-34.8 Uk HealthcareComment on above:Performed By: #### CBC, BMP #### [place] [address] Aluminum Sheet Cutter: MARCELINA LiebermanCV (RBC) [Entitic vol]101.9 dCGdodfw77.6-102.9 Uk HealthcareComment on above:Performed By: #### CBC, BMP #### [place] [address] Aluminum Sheet Cutter: Anam Keith MDNRBC Automated0.0 per 100 WBCNormal0.0Uk HealthcareComment on above:Performed By: #### CBC, BMP #### [place] [address] Aluminum Sheet Cutter: Jude Liebermantelet mean volume (Bld) [Entitic vol]10.4 fL Normal8.1-13.5Uk HealthcareComment on above:Performed By: #### CBC, BMP #### [place] [address] Aluminum Sheet Cutter: Anam Keith MDPlatelets (Bld) [#/Vol]168 10*3/bUWbewcj029-779 Uk HealthcareComment on above:Performed By: #### CBC, BMP #### [address] [address] Aluminum Sheet Cutter: Anam Keith MDRBC (Bld) [#/Vol]4.19 10*6/uLLow4.21-5.77Uk HealthcareComment on above:Performed By: #### CBC, BMP #### [facility] [address] [place] [address] Aluminum Sheet Cutter: OPAL Lieberman ([facility]) [#/Vol]12.2 10*3/uLHigh3.5-11.3[facility] CampusComment on above:Performed By: #### CBC, BMP #### [facility] [address] [place] [address] Aluminum Sheet Cutter: TABATHA Lieberman BRAIN W WO CONTRASTon 48-41-9295QXN BRAIN W WO CONTRASTEXAMINATION: MRI OF THE BRAIN WITHOUT AND WITH [...] Signed by: Rigo Monroe MD 09/19/23 Final resultNormalUk HealthcareCBC with Diffon 76-24-1583Zwl. Basophil0.05 k/uLNormal0.00-0.20Uk HealthcareComment on above:Performed By: #### CDP, CMPX ####[facility] [address] [place] [address] Lab Director: MDAbs. MioImm.Granulocyte0.07 k/uLNormal0.00-0.30Uk HealthcareComment on above:Performed By: #### CDP, CMPX ####[facility] [address] [place] [address] Lab Director: Mark Lieberman.Neutrophil (Seg)9.01 k/uL High1.50-8.10Uk HealthcareComment on above:Performed By: #### CDP, CMPX ####[facility] [address] [place] [address] Lab Director: Anam Keith MDBasophils/100 WBC (Bld)0 %Normal0-2MSan Clemente Hospital and Medical CenterComment on above:Performed By: #### CDP, CMPX ####[facility] [address] [place] [address] Lab Director: Anam Keith MDEosinophils (Bld) [#/Vol]0.14 10*3/uLNormal0.00-0.44Uk HealthcareComment on above:Performed By: #### CDP, CMPX ####[facility] [address] [place] [address] Lab Director: Anam Keith MDEosinophils/100 WBC (Bld)1 %Normal1-4[facility] Comment on above:Performed By: #### CDP, CMPX ####[facility] [address] [place] [address] Lab Director: Anam Keith MDImmature granulocytes/100 WBC (Bld)1 %Kqae7QwqioUk HealthcareComment on above:Performed By: #### CDP, CMPX ####[address] [address] Lab Director: Anam Keith MDLymphocytes (Bld) [#/Vol] 1.65 10*3/uLNormal1.10-3.70Uk HealthcareComment on above: Performed By: #### CDP, CMPX ####[facility] [address] [place] [address] Lab Director: Anam Keith MDLymphocytes/100 WBC (Bld)14 % Cod28-10VuhapUk HealthcareComment on above:Performed By: #### CDP, CMPX ####[address] [address] Lab D irector: MARCELINA Liebermanonocytes (Bld) [#/Vol]1.17 10*3/uLNormal0.10-1.20 Uk HealthcareComment on above:Performed By: #### CDP, CMPX ####[facility] [address] [place] [address] Lab Director: MARCELINA Liebermanonocytes/100 WBC (Bld)10 %Normal3-12Uk HealthcareComment on above:Performed By: #### CDP, CMPX ####[facility] [address]sjncwkj40[address] [place] [address] Lab Director: Anam Keith MD Neutrophil (Seg)75 %Quzd10-61VbsoiUk HealthcareComment on above: Performed By: #### CDP, CMPX ####[facility] [address] [place] [address] Lab Director: Anma Keith MDErythrocyte distribution width (RBC) [Ratio]16.4 %High11.8-14.4Uk HealthcareComment on above:Performed By: #### CDP, CMPX ####[facility] [address] [place] [address] [phone] Director: Anam Keith MDHematocrit (Bld) [Volume fraction]45.2 %Jgwqfs79.7-50.3MSan Clemente Hospital and Medical CenterComment on above: Performed By: #### CDP, CMPX ####[facility] [address]mueicinkcyl[address] [place] [address] [phone] Director: Anam Keith MDHemoglobin (Bld) [Mass/Vol] 14.9 g/sWImrpig37.0-17.0Uk HealthcareComment on above: Performed By: #### CDP, CMPX ####[facility] Em[address] [place], [place] [phone] Director: MARCELINA LiebermanCH (RBC) [Entitic mass]33.5 pwBngopx13.2-33.5Uk HealthcareComment on above:Performed By: #### CDP, CMPX ####[facility] [address] [place] [address] [phone] Director: MARCELINA LiebermanCHC (RBC) [Mass/Vol]33.0 g/dLNormal 28.4-34.8Uk HealthcareComment on above:Performed By: #### CDP, CMPX ####[facility] [address] [place] [address] [phone] Director: MARCELINA LiebermanCV (RBC) [Entitic vol]101.6 xGQuwcgb71.6-102.9Uk HealthcareComment on above:Performed By: #### CDP, CMPX ####[facility] [address] [place] [address] Lab Director: Anam Keith MDNRBC Automated0.0 per 100 WBCNormal0.0Uk HealthcareComment on above:Performed By: #### CDP, CMPX ####[facility] [address]bzxoitanrto[address] [place] [address] Lab Director: Jude Liebermantelet mean volume (Bld) [Entitic vol]10.3 fLNormal8.1-13.5Uk HealthcareComment on above:Performed By: #### CDP, CMPX ####[facility] [address]wsrtstzw[address] [place] [address] Lab Director: Anam Keith MDPlatelets (Bld) [#/Vol]206 10*3/qFDfrekc503-557CctqzUk HealthcareComment on above:Performed By: #### CDP, CMPX ####[address] [address] Lab Director: Anam Keith MDRBC (Bld) [#/Vol]4.45 10*6/uLNormal4.21-5.77Uk HealthcareComment on above:Performed By: #### CDP, CMPX ####[address] [address] Lab Director: JORGE Lieberman morphology finding Nom (Bld)ANISOCYTOSIS PRESENTNormalUk HealthcareComment on above:Performed By: #### CDP, CMPX ####[facility] [address] [place] [address] Lab Director: Anam Keith MDWBC (Bld) [#/Vol]12.1 10*3/uLHigh3.5-11.3MSan Clemente Hospital and Medical CenterComment on above:Performed By: #### CDP, CMPX ####[facility] [address] [place] [address] Lab Director: SHELBIE Liebermanomp Metabolic Pr/rfx MGon 56-08-5439Nogpuak [Mass/Vol]3.3 g/dLLow3.5-5.2[facility] Comment on above:Performed By: #### CDP, CMPX ####[facility] [address] [place] [address] Lab Director: Anam Keith MDAlbumin/Glob Ratio0.8Low1.0-2.5Uk HealthcareComment on above:Performed By: #### CDP, CMPX ####[facility] [address] [place] [phone] Director: Katey Liebermanline Phos90 U/CJxeubc97-708BdsreUk HealthcareComment on above:Result Comment: SPECIMEN SLIGHTLY HEMOLYZED, RESULTS MAY BE ADVERSELY AFFECTED.Performed By: #### CDP, CMPX ####[facility] [address] [place] [address] Lab Director: Anam Keith MDALT [Catalytic activity/Vol]15 U/LNormal5-41Uk HealthcareComment on above:Result Comment: SPECIMEN SLIGHTLY HEMOLYZED, RESULTS MAY BE ADVERSELY AFFECTED.Performed By: #### CDP, CMPX ####[facility] [address]so[address] [place], [place] [phone] Director: Anam Keith MDAnion gap [Moles/Vol]10 mmol/LNormal9-17Uk HealthcareComment on above:Performed By: #### CDP, CMPX ####[facility] [address] [place] [address] Lab Director: Anam Keith MDAST [Catalytic activity/Vol]28 U/LNormal<40Uk HealthcareComment on above:Result Comment: SPECIMEN SLIGHTLY HEMOLYZED, RESULTS MAY BE ADVERSELY AFFECTED.Performed By: #### CDP, CMPX ####[facility] [address]qltx[address]ivp350[address] [place], [place] [phone] Director: Anam Keith MDBilirubin [Mass/Vol]0.7 mg/dLNormal0.3-1.2MSan Clemente Hospital and Medical CenterComment on above:Performed By: #### CDP, CMPX ####[facility] [address] [place], [place] [phone] Director: SHELBIE Liebermanalcium [Mass/Vol]8.4 mg/dL Low8.6-10.4Uk HealthcareComment on above:Performed By: #### CDP, CMPX ####[facility] [address] [place], [place] [phone] Director: SHELBIE Liebermanhloride [Moles/Vol]98 mmol/MGhuvbm41-641GosmmUk HealthcareComment on above:Performed By: #### CDP, CMPX ####[facility] [address]rh[address] [place], [place] [address])[phone] Director: Anam Keith MDCO2 [Moles/Vol]24 mmol/PVsfqyi59-16FpfkgUk Healthcare Comment on above:Performed By: #### CDP, CMPX ####[facility] [address] [place], [place] [phone] Director: SHELBIE Liebermanreatinine [Mass/Vol]0.6 mg/dLLow0.7-1.2MSan Clemente Hospital and Medical CenterComment on above: Performed By: #### CDP, CMPX ####[facility] F[address]ff[address]60[address] [place], [place] [address])[phone] Director: Anam Keith MDGFR/1.73 sq M.predicted among non-blacks MDRD (S/P/Bld) [Vol rate/Area]mL/min/{1.73_m2}Normal>60Uk HealthcareComment on above:Result Comment: These results are not intended for [...] or following therapy that affects renal tubular secretion.Performed By: #### CDP, CMPX ####[facility] [address] [place] [address] [phone] Director: Anam Keith MDGlucose [Mass/Vol]83 mg/zZLelcnn81-19NtcjfSan Clemente Hospital and Medical CenterComment on above:Performed By: #### CDP, CMPX ####[facility] [address] [place] [address] [phone] Director: KESHIA Liebermanotassium [Moles/Vol]5.3 mmol/LNormal3.7-5.3MSan Clemente Hospital and Medical CenterComment on above:Result Comment: SPECIMEN SLIGHTLY HEMOLYZED, RESULTS MAY BE ADVERSELY AFFECTED.Performed By: #### CDP, CMPX ####[facility] [address] [place] [address])[phone] Director: Anam Keith MDProtein [Mass/Vol]7.2 g/dLNormal6.4-8.3MSan Clemente Hospital and Medical CenterComment on above: Performed By: #### CDP, CMPX ####[facility] [address] [phone] Director: FREDERICK Liebermanodium [Moles/Vol]132 mmol/L Mgp080-907AlpkrUk HealthcareComment on above:Performed By: #### CDP, CMPX ####[facility] [address] [place] [address] [phone] Director: Anam Keith MDUrea nitrogen [Mass/Vol]6 mg/dLLow8-23Uk HealthcareComment on above:Performed By: #### CDP, CMPX ####[facility] [address] [place] [address] [phone] Director: Anam Madoff, MDXR ABDOMEN (KUB) (SINGLE AP VIEW)on [id number] ABDOMEN (KUB) (SINGLE AP VIEW)EXAMINATION: ONE SUPINE XRAY VIEW(S) OF THE ABDOMEN [...] Signed by: Edvin Richardson MD 09/18/23 Final resultNoOhio State East HospitalXR CHEST PORTABLEon 09-18-2023 XR CHEST PORTABLEEXAMINATION: ONE XRAY VIEW OF THE CHEST 09/18/2023 [...] Signed by: Edvin Richardson MD 09/18/23 Final resultNormalUk HealthcareCT HEAD WO CONTRASTon [id number] HEAD WO CONTRASTADDENDUM: Results were conveyed to Dr. Jacinto on [...] John Monteiro MD 09/17/23 Edited Result - FINALNormalMerKaiser Medical CenterCTA HEAD NECK W CONTRASTon [id number] HEAD NECK W CONTRASTEXAMINATION: CTA OF THE HEAD AND NECK WITH [...] Signed by: John Monteiro MD 09/17/23 Final resultNormalUk HealthcareKeppraon 18-30-5273JMEW79 ug/mLNormalUk HealthcareComment on above:Result Comment: A reference range for Keppra has [...] toxicity is not known. Performed By: #### ASTON DUMONTPPRA #### [facility] [address] [place] [address] Aluminum Sheet Cutter: FREDERICK Liebermantroke Panelon 74-58-8415Jzklf gap [Moles/Vol]11 mmol/LNormal9-17Uk HealthcareComment on above:Performed By: #### JULIA KEPPRA #### [facility] [address] [place], [place] [phone] Aluminum Sheet Cutter: Anam Keith MDCalcium [Mass/Vol]9.4 mg/dLNormal8.6-10.4Uk HealthcareComment on above:Performed By: #### JULIA KEPPRA #### [facility] [address] [place] [address] Aluminum Sheet Cutter: Anam Kieth MDChloride [Moles/Vol]90 mmol/DCcp67-732FszhcUk HealthcareComment on above:Performed By: #### PEARL DUMONT #### [facility] [address] [place] [address] Aluminum Sheet Cutter: Anam Keith MDCK [Catalytic activity/Vol]34 U/UIns87-024MefqfUk HealthcareComment on above:Performed By: #### PEARL DUMONT #### [facility] [address] [place] [address] Aluminum Sheet Cutter: Anam Keith MDCO2 [Moles/Vol]28 mmol/IZkgxtw28-68WbdqmUk HealthcareComment on above:Performed By: #### PEARL DUMONT #### [facility] [address] [place] [address] Aluminum Sheet Cutter: SHELBIE Liebermanreatinine [Mass/Vol]0.8 mg/dLNormal0.7-1.2MSan Clemente Hospital and Medical CenterComment on above:Performed By: #### PEARL DUMONT #### [facility] [address] [place] [address] Aluminum Sheet Cutter: Anam Keith MDGFR/1.73 sq M.predicted among non-blacks MDRD (S/P/Bld) [Vol rate/Area]mL/min/{1.73_m2}Normal>60Uk HealthcareComment on above:Result Comment: These results are not intended for [...] or following therapy that affects renal tubular secretion.Performed By: #### PEARL DUMONT #### [facility] [address] [place] [address] Aluminum Sheet Cutter: Anam Keith MDGlucose [Mass/Vol]115 mg/nIWzwn62-61CeabrSan Clemente Hospital and Medical CenterComment on above:Performed By: #### STROKEPEARL #### [facility] [address] [place] [address] Aluminum Sheet Cutter: KESHIA Liebermanotassium [Moles/Vol]4.2 mmol/LNormal3.7-5.3 Uk HealthcareComment on above:Performed By: #### STROKEPEARL #### [facility] [address] [place] [address] Aluminum Sheet Cutter: Anam Keith MDSodium [Moles/Vol]129 mmol/FHyv016-384AdscbUk HealthcareComment on above:Performed By: #### PEARL DUMONT #### [address] [address] Aluminum Sheet Cutter: Anam Keith MDUrea nitrogen [Mass/Vol]10 mg/dLNormal8-23Uk HealthcareComment on above:Performed By: #### PEARL DUMONT #### [address] [address] Aluminum Sheet Cutter: MDAbs. Mio Basophil0.00 k/uLNormal0.0-0.2MSan Clemente Hospital and Medical CenterComment on above:Performed By: #### PEARL DUMONT #### [facility] [address] [place] [address] Aluminum Sheet Cutter: MDAbs. MioImm.Granulocyte0.00 k/uLNormal0.00-0.30Uk HealthcareComment on above:Performed By: #### PEARL DUMONT #### [address] [address] Aluminum Sheet Cutter: MDAbs. MioNeutrophil (Seg)15.75 k/uLHigh1.8-7.7Uk HealthcareComment on above:Performed By: #### STROKEPEARL #### [address] [address] Aluminum Sheet Cutter: Anam Keith MDBasophils/100 WBC (Bld)0 %Normal0-2MSan Clemente Hospital and Medical CenterComment on above:Performed By: #### PEARL DUMONT #### [address] [address] Aluminum Sheet Cutter: Anam Keith MDEosinophils (Bld) [#/Vol]0.21 10*3/uLNormal 0.0-0.4Uk HealthcareComment on above:Performed By: #### PEARL DUMONT #### [address] [address] Aluminum Sheet Cutter: ALYSIA Liebermanosinophils/100 WBC (Bld)1 %Normal1-4Uk HealthcareComment on above:Performed By: #### PEARL DUMONT #### [address] [address] Aluminum Sheet Cutter: Jose Liebermanture granulocytes/100 WBC (Bld)0 %Normal0 Uk HealthcareComment on above:Performed By: #### PEARL DUMONT #### [address] [address] Aluminum Sheet Cutter: Christina Liebermanmphocytes (Bld) [#/Vol]1.89 10*3/uLNormal 1.0-4.8Uk HealthcareComment on above:Performed By: #### PEARL DUMONT #### [address] [address] Aluminum Sheet Cutter: Christina Liebermanmphocytes/100 WBC (Bld)9 %Yot66-85QauizUk HealthcareComment on above:Performed By: #### PEARL DUMONT #### [address] [address] Aluminum Sheet Cutter: Anam Keith MDMonocytes (Bld) [#/Vol]3.15 10*3/uLHigh0.1-0.8 Uk HealthcareComment on above:Performed By: #### PEARL DUMONT #### [address] [address] Aluminum Sheet Cutter: MARCELINA Liebermanonocytes/100 WBC (Bld)15 %High1-7Uk HealthcareComment on above:Performed By: #### PEARL DUMONT #### [address] [address] Aluminum Sheet Cutter: MARCELINA Liebermanorphology Omari (Bld) [Interp]ANISOCYTOSIS PRESENTNormalUk HealthcareComment on above:Performed By: #### PEARL DUMONT #### [address] [address] Aluminum Sheet Cutter: Anam Keith MDNeutrophil (Seg)75 %Qkoq95-42WudinUk HealthcareComment on above:Performed By: #### PEARL DUMONT #### [address] [address] Aluminum Sheet Cutter: MARCELINA Liebermanyoglobin [Mass/Vol]40 ng/rPJccaao64-40ZgxcdUk HealthcareComment on above:Performed By: #### PEARL DUMONT #### [address] [address] Aluminum Sheet Cutter: Aida Lieberman High Sens8 ng/LNormal0-22Uk HealthcareComment on above:Result Comment: High Sensitivity Troponin values cannot be compared with other Troponin methodologies.Performed By: #### PEARL DUMONT #### [address] [address] Aluminum Sheet Cutter: Carmen Lieberman Coag (Bld) [Time]31.4 bRhaaif83.0-36.5Uk HealthcareComment on above:Result Comment: IV Heparin Therapy Range: 66.0-92.0 secPerformed By: #### PEARL DUMONT #### [address] [address] Aluminum Sheet Cutter: Anam Keith MDINR Coag (PPP) [Relative time]1.1 {INR}Normal Uk HealthcareComment on above:Result Comment: Therapeutic Range: Moderate Anticoagulant Intensity: INR = 2.0-3.0 High Anticoagulant Intensity: INR = 2.5-3.5Performed By: #### PEARL DUMONT #### [address] [address] Aluminum Sheet Cutter: GLENDA Lieberman Coag (PPP) [Time]13.8 rCzvlxu34.7-14.9Uk HealthcareComment on above:Performed By: #### PEARL DUMONT #### [address] [address] Aluminum Sheet Cutter: Anam Keith MDErythrocyte distribution width (RBC) [Ratio]16.6 %High11.8-14.4Uk HealthcareComment on above:Performed By: #### PEARL DUMONT #### [address] [address] Aluminum Sheet Cutter: Anam Keith MDHematocrit (Bld) [Volume fraction]51.3 %High 40.7-50.3MSan Clemente Hospital and Medical CenterComment on above:Performed By: #### PEARL DUMONT #### [address] [address] Aluminum Sheet Cutter: Anam Keith MDHemoglobin (Bld) [Mass/Vol]17.4 g/dLHigh 13.0-17.0Uk HealthcareComment on above:Performed By: #### PEARL DUMONT #### [address] [address] Aluminum Sheet Cutter: MARCELINA LiebermanCH (RBC) [Entitic mass]33.5 lkRkiadn24.2-33.5 Uk HealthcareComment on above:Performed By: #### PEARL DUMONT #### [address] [address] Aluminum Sheet Cutter: RADHA LiebermanC (RBC) [Mass/Vol]33.9 g/oUAefwkx82.4-34.8 Uk HealthcareComment on above:Performed By: #### PEARL DUMONT #### [address] [address] Aluminum Sheet Cutter: MARCELINA LiebermanCV (RBC) [Entitic vol]98.7 oPPogzqm05.6-102.9 Uk HealthcareComment on above:Performed By: #### PEARL DUMONT #### [address] [address] Aluminum Sheet Cutter: Anam Keith MDNRBC Automated0.0 per 100 WBCNormal0.0Uk HealthcareComment on above:Performed By: #### PEARL DUMONT #### [address] [address] Aluminum Sheet Cutter: Jones Lieberman mean volume (Bld) [Entitic vol]10.1 fL Normal8.1-13.5Uk HealthcareComment on above:Performed By: #### PEARL DUMONT #### [address] [address] Aluminum Sheet Cutter: Anam Madoff, MDPlatelets (Bld) [#/Vol]257 10*3/hVOqlmxs667-173 Uk HealthcareComment on above:Performed By: #### PEARL DUMONT #### [facility] [address] [place] [address] Aluminum Sheet Cutter: AUDREY LiebermanBC (Bld) [#/Vol]5.20 10*6/uLNormal4.21-5.77 Uk HealthcareComment on above:Performed By: #### PEARL DUMONT #### [facility] [address] [place] [address] Aluminum Sheet Cutter: Anam Keith MDWBC (Bld) [#/Vol]21.0 10*3/uLHigh3.5-11.3Mselect medical specialty hospital - trumbully Mount Zion CampusComment on above:Performed By: #### PEARL DUMONT #### [facility] [address] [place] [address] Aluminum Sheet Cutter: Anam Keith MDHEMOGRAM AND PLATELon 81-68-7912Zgwmwoqinv (Bld) [Volume fraction]29.8 %Critically low42.0-54.0The [facility] Metro[facility] SystemComment on above:Performed By: #### HH #### [facility] [address] [place] [address] Dr. Christoph JefferyHemoglobin (Bld) [Mass/Vol]10.5 g/dLCritically low14.0-18.0The The [facility] SystemComment on above:Performed By: #### HH #### [facility] [address] [place] [address] Dr. Christoph Willis (RBC) [Entitic mass]39.8 pgCritically high25.9-34.0The The Metro[facility] SystemComment on above:Performed By: #### HH #### [facility] [address] [place] [address] Dr. Christoph Willis (RBC) [Mass/Vol]35.2 g/mJNjgzxr38.9-35.2The The [facility] SystemComment on above:Performed By: #### HH #### [facility] [address] [address] [address] Christoph WillisV (RBC) [Entitic vol]112.9 fLCritically high80.0-94.0The The [facility] SystemComment on above:Performed By: #### HH #### [facility] [address] [place] [address] Dr. Christoph JefferyPLT281 103/vcOzgftw202-741Wgz The Metrohealth SystemComment on above: Performed By: #### HH #### [facility] [address] [place] [address] Dr. Christoph JefferyRBC2.64 106/ulCritically low4.70-6.10The [facility] on above:Performed By: #### HH #### [facility] [address] [place] [address] Dr. Christoph JefferyWBC6.0 103/ulNormal4.0-11.0The The [facility] SystemComment on above: Performed By: #### HH #### [facility] [address] [place] [address] Dr. Christoph JefferyPROF 14(COMP METB)on 21-13-5466Bgaxzbe [Mass/Vol]2.5 g/dL Critically low3.4-5.0The [facility] on above:Performed By: #### CMP #### [facility] [address] [place] [address] Dr. Christoph JefferyAlbumin/Globulin [Mass ratio]0.6 {ratio}NormalThe The Metrohealth SystemComment on above:Performed By: #### CMP #### [facility] [address] [place] [address] Dr. Christoph Starkey [Catalytic activity/Vol]63 U/UElmqqa91-334Qrz [facility] on above:Performed By: #### CMP #### [facility] [address] [place] [address] Dr. Christoph Fierro [Catalytic activity/Vol]20 U/BWjvnts33-24Ylc [facility] HospitalComment on above:Performed By: #### CMP #### [facility] [address] [address] [address] Christoph Escobedoon gap [Moles/Vol]10.6 mmol/LNormalThe [facility] Comment on above:Performed By: #### CMP #### [facility] [address] [address] [address] Christoph JefferyAST [Catalytic activity/Vol]34 U/GPpqmrk29-86Las The Metro[facility] SystemComment on above:Performed By: #### CMP #### [facility] [address] [address] [address] Christoph JefferyBilirubin [Mass/Vol]0.4 mg/dLNormal0.2-1.0The [facility] Comment on above:Performed By: #### CMP #### [facility] [address] [address] [address] Christoph JefferyCalcium [Mass/Vol]8.6 mg/dLNormal8.5-10.1[facility] Comment on above:Performed By: #### CMP #### [facility] [address] [address] [address] Christoph JefferyChloride [Moles/Vol]101 mmol/EEhhxof89-236Bmj [facility] Comment on above:Performed By: #### CMP #### [facility] [address] [address] [address] Christoph JefferyCO2 [Moles/Vol]27.2 mmol/BDeepsq52.0-32.0[facility] Comment on above:Performed By: #### CMP #### [facility] [address] [address] [address] Christoph JefferyCreatinine [Mass/Vol]0.68 mg/dLCritically low0.70-1.30The [facility] SystemComment on above:Performed By: #### CMP #### [facility] [address] [address] [address] Hawthorne ChangEGFR-AF NEPALESE>60Normal>=60The The Metro[facility] SystemComment on above:Performed By: #### CMP #### [facility] [address] [address] [address] Christoph PolkGFR-NON AF NEPALESE>60Normal>=60The The [facility] SystemComment on above:Performed By: #### CMP #### [facility] [address] [address] [address] Christoph JefferyGlobulin (S) [Mass/Vol]4.0 g/dLNormBarnesville HospitalComment on above:Performed By: #### CMP #### [facility] [address] [address] [address] Christoph JefferyGlucose [Mass/Vol]106 mg/lWBylufj30-492Bnd [facility] Comment on above:Performed By: #### CMP #### [facility] [address] [address] [address] Christoph JefferyPotassium [Moles/Vol]3.8 mmol/LNormal3.5-5.1The [facility] Comment on above:Performed By: #### CMP #### [facility] [address] [address] [address] Christoph JefferyProtein [Mass/Vol]6.5 g/dLNormal6.4-8.2The [facility] Comment on above:Performed By: #### CMP #### [facility] [address] [address] [address] Christoph JefferySodium [Moles/Vol]135 mmol/LCritically arv081-522Wvj The Metrohealth SystemComment on above:Performed By: #### CMP #### [facility] [address] [address] [address] Christoph JefferyUrea nitrogen [Mass/Vol]4.0 mg/dLCritically low7.0-18.0The The [facility] SystemComment on above:Performed By: #### CMP #### [facility] [address] [address] [address] Christoph JefferyUrea nitrogen/Creatinine [Mass ratio]5.9 mg/mgNoMagruder HospitalComment on above:Performed By: #### CMP #### [facility] [address] [address] [address] Christoph Jeffery Vital Signs Date TimeVital SignValuePerforming YawqhxsryCkdadcjg80-73-9679 14:03-0400Body avnqrd420.3 cmAngela Lowe PA Work Phone: NOHarry S. Truman Memorial Veterans' HospitalSomeyslccr21-92-0608 14:03-0400Body mass index (BMI) [Ratio]26.08 kg/o1Mbdwxo Lowe PA Work Phone: [facility] HospitalRkrhlevqfh86-43-1272 14:03-0400Body wotqsn58.82 kgAngela Lowe PA Work Phone: NOHarry S. Truman [facility] Veterans' HospitalTvzcxtlcqx66-80-9783 14:03-0400Diastolic blood yznzecmh02 mm[Hg]Anila Lowe PA Work Phone: [facility] HospitalPuphvvctto44-46-6850 14:03-0400Systolic blood vlovyyje700 mm[Hg]Anila Lowe PA Work Phone: [facility] HospitalRxeptukwxg57-74-5227 10:52-0400Body klypnp713.3 cmAngela Lowe PA Work Phone: [facility] HospitalMfjhrtxwgp28-33-5643 10:52-0400Body mass index (BMI) [Ratio]26.08 kg/c8Osprbb Lowe PA Work Phone: [facility] HospitalIqrhmjglnm00-08-6398 10:52-0400Body upmwmn65.82 kgAngela Lowe PA Work Phone: [facility] HospitalNsccgjzyea47-24-5560 10:52-0400Diastolic blood rhepjlfz18 mm[Hg]Anila Lowe PA Work Phone: NO[facility] HospitalQbiopkbenb13-88-1629 10:52-0400Systolic blood bovleodg421 mm[Hg]Anila Lowe PA Work Phone: [facility] HospitalWjktvtangc14-11-2210 14:19-0500Body yljrgn831.3 cmAngela Lowe PA Work Phone: NOHarry [facility]. [facility] HospitalCcphopzfwn11-42-5161 14:19-0500Body mass index (BMI) [Ratio]28.03 kg/r8Kpciaa Lowe PA Work Phone: [facility] HospitalZgelnzeoqn04-32-4460 14:19-0500Body .17 kgAngela Lowe PA Work Phone: [facility] HospitalMxnrjiirhw23-85-5795 14:19-0500Diastolic blood llhawkfc91 mm[Hg]Anila Lowe PA Work Phone: [facility] HospitalQzeboaqpqi93-91-5348 14:19-0500Systolic blood hfcxborp581 mm[Hg]Anila Lowe PA Work Phone: [facility] HospitalVkgawswwdy89-69-0652 10:39-0400Body ekhymu537.3 cmAngela Lowe PA Work Phone: [facility] HospitalLlcfxidgkk30-62-5176 10:39-0400Diastolic blood bastwjyw05 mm[Hg]Anila Lowe PA Work Phone: [facility] HospitalRsigjglwpi40-78-1068 10:39-0400Systolic blood jcxqriwh081 mm[Hg]Anila Lowe PA Work Phone: [facility] HospitalQyqufxpnop99-01-9463 13:33-0400Body fyalwu818.3 cmAngela Lowe PA Work Phone: [facility] HospitalJdwuwvbwgd83-21-6119 13:33-0400Body mass index (BMI) [Ratio]28.17 kg/q3Wbnemk Lowe PA Work Phone: [facility] HospitalFmqohwytrn17-07-5022 13:33-0400Body zwfciz09.63 kgAngela Lowe PA Work Phone: [facility] HospitalEtfinypyru09-54-1050 13:33-0400Diastolic blood waageatq76 mm[Hg]Anila Lowe PA Work Phone: [facility] HospitalHxpyolzvun59-37-1940 13:33-0400Systolic blood bugqwvru435 mm[Hg]Anila Lowe PA Work Phone: NONE [facility] Encounters Encounter DateEncounter TypeCare ProviderFacilityStart: 03-12-2025 End: 12-81-1535vnhexnnwckXKGNRX LOWENot AvailableStart: 02-09-2025 End: 00-69-4202Useset outpatient visit 25 minutesAngela Lowe PA Work Phone: aNA BELLEVUEComment on above:Anxiety and depression (CMS/HCC) (Primary Dx); Polyneuropathy; Seizure (CMS/HCC); Sensory ataxiaStart: 02-09-2025 End: 08-30-5168iopxkostosSJTFHX LOWENot AvailableStart: 02-09-2025 End: 98-42-2554Kmimze flowsheetAngela Lowe PA Work Phone: aNA BELLEVUEStart: 02-09-2025 End: 19-49-2665Nbllcm flowsheetAngela Lowe PA Work Phone: aNA BELLEVUEStart: 01-08-2025 End: 56-34-2990Jdituh outpatient visit 15 minutesAngela Lowe PA Work Phone: aNA BELLEVUEComment on above:Tremor (Primary Dx); Polyneuropathy; Seizure (CMS/HCC); Lumbosacral radiculopathyStart: 01-08-2025 End: 56-52-6425tbdjapqupeOSFKKN LOWENot AvailableStart: 12-03-2024 End: 96-98-4518Swwusuqmz encounterTiftiti Aydee CHUNG BELLEVUEStart: 10-23-2024 End: 39-45-3728Pgwxdg Agueda Baeza NP Work Phone: [facility]THOPAEDICSStart: 10-23-2024 End: 25-14-6265Gxwfxr Agueda Baeza NP Work Phone: [facility]THOPAEDICSStart: 10-23-2024 End: 42-24-9693Kncbaq outpatient visit 15 minutesEthan Baeza NP Work Phone: [facility] ORTHOPAEDICSComment on above:Lateral epicondylitis, left elbow (Primary Dx); Left elbow painStart: 10-23-2024 End: 41-06-4980ramglzqqymNKPKM T OLSENNot AvailableStart: 09-17-2024 End: 97-94-2364Lsrxhv outpatient visit 25 minutesAngela Lowe PA Work Phone: noms [place] STATE ROUTEComment on above: Polyneuropathy (Primary Dx); Seizure (CMS/HCC); Tremor; Sensory ataxiaStart: 09-17-2024 End: 58-39-1296gjotnjzdqsNRWQFG LOWENot AvailableStart: 09-17-2024 End: 24-34-7312Dzryzy flowsheetAngela Lowe PA Work Phone: [facility] [place] STATE ROUTEStart: 09-17-2024 End: 34-31-4559Obzbto flowsheetAngela Lowe PA Work Phone: [facility] [place] STATE ROUTEStart: 08-13-2024 End: 24-96-1160tsnryoxnczOPTCFM LOWENot AvailableStart: 07-24-2024 End: 33-90-3853Gsimlw flowsheetAngela Lowe PA Work Phone: N[facility] [place] STATE ROUTEStart: 07-24-2024 End: 21-30-3076Dkdryv flowsheetAngela Lowe PA Work Phone: [facility] [place] STATE ROUTEStart: 07-24-2024 End: 68-86-2646Jkyoic outpatient visit 25 minutesAngela Lowe PA Work Phone: NOSQ [place] STATE ROUTEComment on above:Seizure (CMS/HCC) (Primary Dx); Polyneuropathy; Tremor; Insomnia, unspecified typeStart: 07-24-2024 End: 85-07-6170qjzusmzoabMBSKSM LOWENot AvailableStart: 06-24-2024 End: 70-21-9613Qbmwny flowsheetAngela Lowe PA Work Phone: [facility] [place] STATE ROUTEStart: 06-24-2024 End: 10-82-0087Sofpgq flowsheetAngela Lowe PA Work Phone: [facility] [place] STATE ROUTEStart: 06-24-2024 End: 35-71-1890Ahmswe outpatient visit 25 minutesAngela Lowe PA Work Phone: N[facility] [place] STATE ROUTEComment on above:Sensory ataxia (Primary Dx); Seizure (CMS/HCC); Tremor; Lumbosacral radiculopathy; Polyneuropathy; Insomnia, unspecified typeStart: 06-24-2024 End: 80-61-0870mfxfhxverlJFUCSD LOWENot AvailableStart: 06-17-2024 End: 00-39-9132Cqgfzkkcn encounterAndrebritt FRANKS NE NEUROStart: 09-17-2023 End: 69-80-9358Dndepqqmjl and management of inpatientPAUL BRADYMercy St. [facility] CenterStart: 02-03-2023 End: 04-35-1635sckkylwiaxCBATJYO PROVIDERFacility:METROHealthStart: 09-04-2022 End: 77-87-4635lahqigiugcDEZ MILLERFacility:H1 Plan of Treatment DateCare ActivityDetailAuthorStart: 05-04-2025 End: 76-46-2938Jtmbmkm encounter ehcohcnkr60/14/2025 11:00 AM EDT Office Visit RAPHAEL POSADA [address] [place] [phone] Anila Victoria PA [address] [place] [address] RAPHAEL CARCAMOEVUEStart: 03-12-2025 End: 04-78-7404Tfycvyx encounter /22/2025 11:00 AM EDT Office Visit RAPHAEL POSADA [address] [place] [address] Anila Victoria PA [address] [place] [address] RAPHAEL CARCAMOEVUEStart: 02-09-2025 End: 65-74-7657Gtcyiah encounter /21/2025 2:20 PM EDT Office Visit RAPHAEL POSADA [address] [place] [address] Anila Victoria PA [address] [place] [address] Kelvin POSADAComment on above:ArrivedStart: 01-08-2025 End: 88-18-5806Wlmceox encounter procedureNOMS POSADA STATE ROUTEStart: 12-04-2024 End: 48-37-4631Sedfbguqef [Mass/volume] in Serum or PlasmaCreatinine, Serum Lab Routine Dizziness Expected: 12/04/2024 (Approximate), Expires: 12/04/2025NONE HealthcareComment on above:Expected: 12/04/2024 (Approximate), Expires: 12/04/2025Start: 12-04-2024 End: 35-41-2435GH Head WO contrastCT head wo IV contrast Imaging Routine Dizziness Expected: 12/04/2024 (Approximate), Expires: 12/04/2025NONE Healthcare Work Phone: comment on above:Expected: 12/04/2024 (Approximate), Expires: 12/04/2025Start: 12-04-2024 End: 17-97-3154MPC Head vessels WO and W contrast IVCT angiogram head Imaging Routine Dizziness Expected: 12/04/2024, Expires: 12/04/2025NONE Healthcare Comment on above:Expected: 12/04/2024, Expires: 12/04/2025Start: 12-04-2024 End: 58-19-0295OWW Neck vessels WO and W contrast IVCT angiogram neck Imaging Routine Dizziness Expected: 12/04/2024 (Approximate), Expires: 12/04/2025NONE HealthcareComment on above:Expected: 12/04/2024 (Approximate), Expires: 12/04/2025Start: 11-13-2024 End: 35-12-9815Rslzagd encounter lahofsyri36/23/2025 1:15 PM EST Office Visit [facility] [address] [place] [phone] Ethan Baeza, CAR REPAIRER HELPER [address] [place] [address] [facility] ORTHOPAEDICSStart: 10-23-2024 End: 57-09-5541Jjxqfbn encounter rlblodrvy44/02/2025 1:15 PM EST Office Visit [facility] [address] [place] [address] Ethan Baeza, CAR REPAIRER HELPER [address] [place], [place] [address] ArrivedNOMS FB ORTHOPAEDICSComment on above:ArrivedStart: 09-17-2024 End: 55-27-4045Sdrctgc encounter procedureNOMS POS[place] STATE ROUTEComment on above:ArrivedStart: 08-13-2024 End: 80-03-4101Vdwdnha encounter povbdsbzv39/23/2024 12:00 PM EDT Office Visit [facility] [place] [address] [facility] [place] [address] [phone] [place] STATE ROUTEStart: 07-24-2024 End: 34-72-1436JHL 2 Hour RoutineEEG 2 Hour Routine Neurology Routine Seizure (CMS/HCC) Expected: 07/24/2024 (Approximate), Expires:07/24/2025NONE Healthcare Work Phone: comment on above:Expected: 07/24/2024 (Approximate), Expires: 07/24/2025Start: 07-24-2024 End: 54-79-3558Cobjirb encounter procedureNOMS POS[place] STATE ROUTEComment on above:ArrivedStart: 06-24-2024 End: 47-82-6386Mhieiea encounter procedureNOMS POSADA STATE ROUTEComment on above:Sensory ataxia (Primary Dx); Seizure (CMS/HCC); Tremor; Closed head injury, sequela; Lumbosacral radiculopathy; Polyneuropathy; Insomnia, unspecified typeStart: 06-24-2024 End: 64-23-3557Jttzegstemldl levelLevetiracetam level Lab Routine Seizure (CMS/HCC) Expected: 06/24/2024 (Approximate), Expires: 06/24/2025NONE Healthcare Work Phone: comment on above:Expected: 06/24/2024 (Approximate), Expires: 06/24/2025 Payers DatePayer CategoryPayerPolicy ID2024Medicare (Managed Care)[facility] MEDIC[facility] ADVANTAGE [id number] [id number] 2024MedicaidMEDICAID [place] Member Subscriber Plan / Payer (Effective 2024-Present) Name: Michael Chen Relation to Subscriber: Self Name: Michael Chen Payer ID: Not on file Group ID: Not on file Type: Medicaid Address: [address] [place] [id number] [id number] [id number] 2022Medicare [id number] 2.0.1.401600.3.57[id number] 2.0.1.313190.3.57[id number] 2.0.1.732704.3.57[id number] 2.16.840.1.584953.3.57[id number] 2.16.840.1.222532.3.57[id number] 2.16.840.1.604517.3.57[id number] 2..0.1.573419.3.57[id number] 2..840.1.952013.3.57[id number] 2.16.840.1.247325.3.57[id number] 2.0.1.155225.3.57[id number] 2..840.1.174344.3.579.2.1259 Social History DateTypeDetailFacilityStart: 66-22-4530Akiwzaz smoking status NHISEx-smokerNOMS HealthcareHistory of tobacco useCurrent smokerNOMS HealthcareHistory of tobacco useCigarette SmokerNONE HealthcareStart: 06-24-2024 End: 44-00-4649Rvbdanmse beverage intakeEx-drinker (finding)[facility] Healthcare Start: 06-24-2024 End: 40-51-7213Vqquksm of Social functionNONE HealthcareStart: 06-24-2024 End: 15-86-6171Wevdtxr use panelNONE HealthcareStart: 01-20-1138Auelfxu Comment caffeine intake: more than 4 cups per day.[facility] HealthcareStart: 95-22-5168Wtj assigned at birthNot on [facility] Medical Equipment Procedure CodeEquipment CodeEquipment Original TextEquipment IdentifierDates Start: 06-18-2023 Clinical Notes 06-17-2024 to 02-09-2025 Note Date & SoikAwhvAuxrabcq78-49-1975 History of Present illness Narrative* OSMAR Moore - 02/09/2025 2:20 PM EDT Images from the original note were not [...] ILIAC ARTERY STENT Left 43 years old [place] KNEE SCOPE,CLEAN/DRAIN Right x2 [place] LAP,INGUINAL HERNIA REPR,INITIAL Right Family History Problem Relation Name Age of Onset Other (anger issues) Father Mental illness Father Social History Tobacco Use Smoking status: Former Types: Cigarettes Smokeless tobacco: Not on file Substance Use Topics Alcohol use: Not Currently Comment: caffeine intake: more than 4 cups per day. Medication Documentation Review Audit Reviewed by Rosana Pringle MA (Time Clerk) on 02/09/25 at 1404 Medication Order Taking? Sig Documenting Provider Last Dose Status calcium 200 MG tablet [id number] No Calcium Historical ProviderMD Not Taking Active Calcium Carbonate Antacid (CALCIUM CARBONATE PO) [id number] No Take 1 capsule by mouth in the morning. Historical ProviderMD Not Taking Active clopidogrel (Plavix) 75 MG tablet [id number] No 1 (one) time each day at the same time. Historical ProviderMD Not Taking Active cyanocobalamin (Vitamin B-12) 1000 MCG tablet [id number] No Take 1,000 mcg by mouth in the morning. Historical ProviderMD Not Taking Active famotidine (Pepcid) 40 MG tablet [id number] No take 1 tablet by mouth at bedtime Oral for 90 Historical ProviderMD Not Taking Active gabapentin (Neurontin) 100 MG capsule [id number] Take 2 capsules (200 mg) by mouth in the morning and2 capsules (200 mg) before bedtime. Due 03/29/25. OSMAR Moore Active Glucose Blood (Blood Glucose Test) strip [id number] 1 Strip Used Once daily to check sugar for 90 days Historical ProviderMD Active lamoTRIgine (LaMICtal) 25 MG tablet [id number] 3 tabs PO BID OSMAR Moore Active Lancets (OneTouch Delica Plus Yqaqzy84W) [facility] [place] [id number] [place] 1 LANCET to TEST BLOOD SUGAR once daily Historical ProviderMD Active levETIRAcetam (Keppra) 1000 MG tablet [id number] Take 1 tablet (1,000 mg) by mouth in the morning and1 tablet (1,000 mg) before bedtime. OSMAR Moore Active levETIRAcetam (Keppra) 250 MG tablet [id number] Take 1 tablet (250 mg) by mouth in the morning and 1 tablet (250 mg) before bedtime. In addition to 1000mg BID. OSMAR Moore Active metoprolol succinate XL (Toprol-XL) 25 MG 24 hr tablet [id number] 1 (one) time each day at the same time. Historical ProviderMD Active metoprolol tartrate (Lopressor) 25 MG tablet [id number] Take 25 mg by mouth in the morning and 25 mg before bedtime. Ethan Baeza, LAURA Active omega-3 (FISH OIL) 300 MG capsule [id number] No Fish Oil Historical ProviderMD Not Taking Active tiZANidine (Zanaflex) 4 MG tablet [id number] No every 12 (twelve) hours. Historical ProviderMD Not Taking Active traZODone (Desyrel) 50 MG tablet [id number] No 1 (one) time each day at [...] Oriented to person, place and time. Recent andremote memory are intact. Speech is normal. Language [...] triceps, wrist extensors, wrist extensors, wrist flexor, channel marketing manager strength 5/5. LUE Strength deltoid, biceps, triceps, wrist extensors, wrist extensors, wrist flexor, channel marketing manager strength 5/5. RLE Strength illopsoas, quadriceps, tibialis [...] extrusion with mild caudal migration at C5-6 causingsevere narrowing of the right neural foramen. The cord was normal in signal intensity without post contrast enhancement. MRI of the thoracic spine revealed disc protrusion causing mild canal stenosiswith mild mass effect on the anterior aspect of the cord. No cord signal abnormalities were note. Concern for primary progressive MS but clinically he does not yet meet criteria for diagnosis. LP revealed only myelin basic protein elevation. IgG synthesis was normal. There were zero oligoclonal bands. BLE EMG from 07/2019 revealed severe polyneuropathy. He continues with balance difficulty and isin a wheelchair. He is further debilitated. He is only walking to transfer to the toilet now. He did not complete PT and was in jail. MOCA 01/10/2023 is 28/30. He has a power scooter and also 2 walkers to use in the home. No falls since his last visit. Seizure (CMS/HCC) He is taking Keppra, previously prescribed by his PCP and this was previously followed by his previous PCP. He did have breakthrough seizure [facility] that was attributed to severe electrolyte disturbances. EEG there did not show any seizure activity. He was continued on current Keppra dosing but continued to drink ETOH and stop abruptly which his partner notes wasthe likely cuplrit to breakthrough events. [facility] and February 2023. [...] Follow up 6 weeks documented in this encounterSt. Lukes [facility] HospitalHrwbilrjmf77-57-6825 Telephone encounter Note* Telephone Encounter - OSMAR Moore - 12/04/2024 1:32 PM EST Orders placed. [facility] HospitalUfdqpacvxf09-42-1670 Miscellaneous Notes* Telephone Encounter - OSMAR Moore - 12/04/2024 1:32 PM EST Orders placed. * Telephone Encounter - Sharri Bajwa MA - 12/04/2024 1:27 PM EST Patient return call. He is willing to have imaging done at [facility]. * Telephone Encounter - Nick Mtz MA - 12/04/2024 12:54 PM EST LM with the pt to cb. * Telephone Encounter - Nick Mtz MA - 12/04/2024 9:07 AM EST Spoke with the pt. He notes that he has had the dizziness only for the past few days and that it isstill happening every 30-45 mins and lasts 5-10 mins. He was advised to go to the ED for evaluation, is apprehensive because he doesn't like the ED. He will go if it happens again though. * Telephone Encounter - Sharri Bajwa MA - 12/03/2024 3:11 PM EST Patient calls stating he has been having [...] recent illness. Please advise documented in this encounterSt. Lukes Des Peres HospitalVdjeidknbx60-95-5634 Telephone encounter Note* Telephone Encounter - Sharri Bajwa MA - 12/04/2024 1:27 PM EST Patient return call. He is willing to have imaging done at [facility]. [facility] HospitalLizilwtciz58-03-9783 Telephone encounter Note* Telephone Encounter - Nick Mtz MA - 12/04/2024 12:54 PM EST LM with the pt to cb. [facility] HospitalCpspukvfwe21-05-2091 Telephone encounter Note* Telephone Encounter - Nick Mtz MA - 12/04/2024 9:07 AM EST Spoke with the pt. He notes that he has had the dizziness only for the past few days and that it isstill happening every 30-45 mins and lasts 5-10 mins. He was advised to go to the ED for evaluation, is apprehensive because he doesn't like the ED. He will go if it happens again though. [facility] HospitalFrndkzmmel65-60-2252 Telephone encounter Note* Telephone Encounter - Sharri Bajwa MA - 12/03/2024 3:11 PM EST Patient calls stating he has been having [...] consciousness or any recent illness. Please advise [facility] HospitalBnefaecsmu43-51-6057 History of Present illness Narrative* OSMAR Moore - 09/17/2024 2:20 PM EST Images from the original note were not [...] ILIAC ARTERY STENT Left 43 years old [place] KNEE SCOPE,CLEAN/DRAIN Right x2 [place] LAP,INGUINAL HERNIA REPR,INITIAL Right Family History Problem Relation Name Age of Onset Other (anger issues) Father Mental illness Father Social History Tobacco Use Smoking status: Former Types: Cigarettes Smokeless tobacco: Not on file Substance Use Topics Alcohol use: Not Currently Comment: caffeine intake: more than 4 cups per day. Medication Documentation Review Audit Reviewed by Brittney England MA (Time Clerk) on 09/17/24 at 1421 Medication Order Taking? Sig Documenting Provider Last Dose Status calcium 200 MG tablet [id number] No Calcium Historical ProviderMD Not Taking Active Calcium Carbonate Antacid (CALCIUM CARBONATE PO) [id number] No Take 1 capsule by mouth in the morning. [place] ProviderMD Not Taking Active clopidogrel (Plavix) 75 MG tablet [id number] No 1 (one) time each day at the same time. Historical ProviderMD Not Taking Active cyanocobalamin (Vitamin B-12) 1000 MCG tablet [id number] No Take 1,000 mcg by mouth in the morning. Historical ProviderMD Not Taking Active famotidine (Pepcid) 40 MG tablet [id number] No take 1 tablet by mouth at bedtime Oral for 90 Historical ProviderMD Not Taking Active gabapentin (Neurontin) 100 MG capsule [id number] Take 2 capsules (200 mg) by mouth in the morning and2 capsules (200 mg) before bedtime. Due 07/08/24. OSMAR Moore 08/23/24 4639 Glucose Blood (Blood Glucose Test) strip [id number] 1 Strip Used Once daily to check sugar for 90 days Historical ProviderMD Active lamoTRIgine (LaMICtal) 25 MG tablet [id number] Take 1 tablet (25 mg) by mouth in the morning and 1 tablet (25 mg) before bedtime. 25mg PO daily for 7 days, then 25mg PO BID for 7 days, then 1 tab PO QAM and 2 tabs PO at bedtime for 7 days, then 2 tabs PO BID thereafter. OSMAR Moore 08/23/24 2359 Lancets (OneTouch Delica Plus Uouaol27U) [facility] [place] [id number] use 1 LANCET to TEST BLOOD SUGAR once daily Historical ProviderMD Active levETIRAcetam (Keppra) 1000 MG tablet [id number] Take 1 tablet (1,000 mg) by mouth in the morning and1 tablet (1,000 mg) before bedtime. OSMAR Moore Active levETIRAcetam (Keppra) 250 MG tablet [id number] Take 1 tablet (250 mg) by mouth in the morning and 1 tablet (250 mg) before bedtime. In addition to 1000mg BID. OSMAR Moore Active metoprolol succinate XL (Toprol-XL) 25 MG 24 hr tablet [id number] 1 (one) time each day at the same time. Historical ProviderMD Active omega-3 (FISH OIL) 300 MG capsule [id number] No Fish Oil Historical ProviderMD Not Taking Active tiZANidine (Zanaflex) 4 MG tablet [id number] No every 12 (twelve) hours. Historical ProviderMD Not Taking Active traZODone (Desyrel) 50 MG tablet [id number] No 1 (one) time each day at [...] Oriented to person, place and time. Recent andremote memory are intact. Speech is normal. Language [...] triceps, wrist extensors, wrist extensors, wrist flexor, channel marketing manager strength 5/5. LUE Strength deltoid, biceps, triceps, wrist extensors, wrist extensors, wrist flexor, channel marketing manager strength 5/5. RLE Strength illopsoas, quadriceps, tibialis [...] extrusion with mild caudal migration at C5-6 causingsevere narrowing of the right neural foramen. The cord was normal in signal intensity without post contrast enhancement. MRI of the thoracic spine revealed disc protrusion causing mild canal stenosiswith mild mass effect on the anterior aspect of the cord. No cord signal abnormalities were note. Concern for primary progressive MS but clinically he does not yet meet criteria for diagnosis. LP revealed only myelin basic protein elevation. IgG synthesis was normal. There were zero oligoclonal bands. BLE EMG from 07/2019 revealed severe polyneuropathy. He continues with balance difficulty and isin a wheelchair. He is further debilitated. He is only walking to transfer to the toilet now. He did not complete PT and was in jail. MOCA 01/10/2023 is 28/30. He has a power scooter and also 2 walkers to use in the home. No falls since last visit. Seizure (CMS/HCC) He is taking Keppra, previously prescribed by his PCP and this was previously followed by his previous PCP. He did have breakthrough seizure [facility] that was attributed to severe electrolyte disturbances. EEG there did not show any seizure activity. He was continued on current Keppra dosing but continued to drink ETOH and stop abruptly which is partner notes was the likely cuplrit to breakthrough events. He was [facility] andFebruary 2023. He also had an LP after discharge due to abnormal MRI brain. Keppra was increased. His last seizure was September 2023. He notes that he has stopped drinking and denies breakthrough events. He is having freezing episodes which is partner state appear to behave like a panic attack but thepatient denies feeling panicked or stressed when these [...] Follow up 2 months documented in this encounterSt. Lukes Des Pe[facility] HospitalUczkensqex19-82-7394 History of Present illness Narrative* Ethan Baeza, LAURA - 10/23/2024 2:00 PM EST Images from the original note were not [...] OF THE ELBOW AT THE TOP. UNABLE TOLIFT THINGS THAT ARE HEAVY. PT GAVE EXAMPLE OF COOKWARE. TAKING ADVIL PRN. NOT USING ANY CREAMS. NOICE OR HEAT IS BEING USED. STARTED A COUPLE OF WEEKS AGO. DOES WAKE AT NIGHT WHEN [place]. DENIES POPPING OR GRINDING. DENIES N/T. 7-8/10 ON PAIN SCALE. HURTS BAD ENOUGH THAT HE HAS ISSUES PICKING UPA GLASS OF WATER. PT IS NOT USING [...] MG tablet 3 tabs PO BID Lancets ([employer] second [employer]uch Delica Plus Sempsq13U) [facility] [place] 1 LANCET to TEST BLOOD SUGAR [...] is affected by pain. Finger abduction: 5/5. Chief Credit Officer strength: 5/5. Neurovascular Left Left elbow nerve [...] ice and stretching at this time. Patient wasdispensed tennis elbow brace in the office today [...] develop for requiring urgent evaluation. Ethan Baeza CONSTRUCTION CONTROLLER-MATH INSTRUCTOR documented in this encounterSt. Lukes Des Peres HospitalMxxmtvnnhd53-07-9600 History of Present illness Narrative* OSMAR Moore - 06/24/2024 2:20 PM EDT Images from the original note were not [...] ILIAC ARTERY STENT Left 43 years old [place] KNEE SCOPE,CLEAN/DRAIN Right x2 [place] LAP,INGUINAL HERNIA REPR,INITIAL Right Family History Problem Relation Name Age of Onset Other (anger issues) Father Mental illness Father Social History Tobacco Use Smoking status: Former Types: Cigarettes Smokeless tobacco: Not on file Substance Use Topics Alcohol use: Not Currently Comment: caffeine intake: more than 4 cups per day. Medication Documentation Review Audit Reviewed by Rosana Pringle MA (Time Clerk) on 06/24/24 at 1334 Medication Order Taking? Sig Documenting Provider Last Dose Status calcium 200 MG tablet [id number] Calcium Historical ProviderMD Active Calcium Carbonate Antacid (CALCIUM CARBONATE PO) [id number] Take 1 capsule by mouth in the morning. Historical ProviderMD Active clopidogrel (Plavix) 75 MG tablet [id number] 1 (one) time each day at the same time. Historical ProviderMD Active cyanocobalamin (Vitamin B-12) 1000 MCG tablet [id number] Take 1,000 mcg by mouth in the morning. Idalia ProviderMD Active famotidine (Pepcid) 40 MG tablet [id number] take 1 tablet by mouth at bedtime Oral for 90 Historical ProviderMD Active gabapentin (Neurontin) 100 MG capsule [id number] 1 tab PO QAM And 2 tabs PO QHS OSMAR Moore Active Discontinued 06/18/24 0829 Glucose Blood (Blood Glucose Test) strip 78196279 1 Strip Used Once daily to check sugar for 90 days Historical MD Chanell Active Lancets (OneTouch Delica Plus Uzrpus54I) mis [id number] use 1 LANCET to TEST BLOOD SUGAR once daily Historical ProviderMD Active levETIRAcetam (Keppra) 250 MG tablet [id number] Take 1,250 mg by mouth in the morning and 1,250 mg inthe evening. Historical Provider, Active metoprolol succinate XL (Toprol-XL) 25 MG 24 hr tablet [id number] 1 (one) time each day at the same time. Historical Provider, Active omega-3 (FISH OIL) 300 MG capsule [id number] Fish Oil Historical Provider, Active tiZANidine (Zanaflex) 4 MG tablet [id number] every 12 (twelve) hours. Historical Provider, Active traZODone (Desyrel) 50 MG tablet [id number] 1 (one) time each day at the same time. Historical Provider, Active Patient is here today for follow-up [...] Oriented to person, place and time. Recent andremote memory are intact. Speech is normal. Language [...] triceps, wrist extensors, wrist extensors, wrist flexor, channel marketing manager strength 5/5. LUE Strength deltoid, biceps, triceps, wrist extensors, wrist extensors, wrist flexor, channel marketing manager strength 5/5. RLE Strength illopsoas, quadriceps, tibialis [...] extrusion with mild caudal migration at C5-6 causingsevere narrowing of the right neural foramen. The cord was normal in signal intensity without post contrast enhancement. MRI of the thoracic spine revealed disc protrusion causing mild canal stenosiswith mild mass effect on the anterior aspect of the cord. No cord signal abnormalities were note. Concern for primary progressive MS but clinically he does not yet meet criteria for diagnosis. LP revealed only myelin basic protein elevation. IgG synthesis was normal. There were zero oligoclonal bands. BLE EMG from 07/2019 revealed severe polyneuropathy. He continues with balance difficulty and isin a wheelchair. He is further debilitated. He is only walking to transfer to the toilet now. He did not complete PT and was in [facility]. MOCA 01/10/2023 is 28/30. He has a power scooter and also 2 walkers to use in the home. Seizure (CMS/HCC) He is taking keppra, previously prescribed by his PCP and this was previously followed by his previous PCP. He has a new PCP and would like this office to take over keppra prescription. He denies anybreakthrough events. Keppra level not completed x2. He did have breakthrough [facility] that was attributed to severe electrolyte disturbances. EEG there did not show any seizure activity. He was continued on current keppra dosing but continued to drink ETOH and stop abruptly which is partner notes was the likely cuplrit to breakthrough events. He was admitted to [facility] facilities in January 2023 and February 2023 [...] He will start this in 2 weeks forgradual titration. 2. I counseled the patient on [...] Follow up 4-6 weeks documented in this encounterSt. Lukes [facility] [id number] Telephone encounter Note* Telephone Encounter - Rosana Pringle MA - 06/17/2024 3:34 PM EDT Spoke to pt and he states that TID is going to be difficult for him. He said he would rather have amedication for daily or even twice daily. Please send to larissa plasencia in [email or web address] [facility] [id number] Miscellaneous Notes* Telephone Encounter - Rosana Pringle MA - 06/17/2024 3:34 PM EDT Spoke to pt and he states that TID is going to be difficult for him. He said he would rather have amedication for daily or even twice daily. Please send to larissa plasencia in [email or web address] * Telephone Encounter - Javi Norman MA - 06/17/2024 11:30 AM EDT Patient states he has been trying to call us back but has been having issues. He has been off the gabapentin since October. He was put on carbamazepine 200 mg in the hospital. He said his PCP said heshould be off of this and resume the [...] the changes. Please advise. documented in this encounterSt. Lukes [facility] Pe[facility] [id number] Telephone encounter Note* Telephone Encounter - Javi Norman MA - 06/17/2024 11:30 AM EDT Patient states he has been trying to call us back but has been having issues. He has been off the gabapentin since October. He was put on carbamazepine 200 mg in the hospital. He said his PCP said heshould be off of this and resume the gabapentin. His gabapentin was 800 mg but he was told to restart he would have to start at 300 mg. He does have an appointment on June 24 and I told him if he didn't hear back that's because it may need to be discussed at his upcoming appointment with all the changes. Please advise. [facility] HealthcareEvaluation note* Diagnosis Seizure (CMS/HCC)- Primary Other convulsions Polyneuropathy Unspecified hereditary and idiopathic peripheral neuropathy Tremor Abnormal involuntary movements Insomnia, unspecified type documented in this encounter [facility] HealthcareEvaluation note* Diagnosis Polyneuropathy- Primary Unspecified hereditary [...] Advanced Directives Records Found Reason for Referral SpecialtyDiagnoses / ProceduresReferred By ContactReferred To ContactNeurology Diagnoses Seizure (CMS/HCC) Procedures EEG 2 Hour Routine Anila Victoria PA [address] [place] [address] Referral IDStatusReasonStart DateExpiration DateVisits RequestedVisits [id number] Ugaxwe05/ Additional Source Comments (unrecognized sect ion and content) No Status Records FoundNo Status Records FoundNo Status Records FoundNo Status Records Found INFORMATION SOURCE (unrecogn ized section and content) DATE CREATED AUTHOR 10/04/2022 [facility] DATE CREATED AUTHOR AUTHOR'S ORGANIZ ATION 02/04/2023 [facility] DATE CREATED AUTHOR AUTHOR'S ORGANIZ ATION 10/02/2023 [facility] DATE CREATED AUTHOR AUTHOR'S ORGANIZ ATION 03/19/2025 [facility] EPIC Care Teams (unrecognized sec tion and content) Team MemberRelationshipSpecialtyStart DateEnd Date Lachelle Caba PA [address] [address] Referring PhysicianPhysical Medicine and Rehabilitation07/02/23Team Member RelationshipSpecialtyStart DateEnd Date Lachelle Caba PA [address] [place] [address] Referring PhysicianPhysical Medicine and Rehabilitation07/02/23Team Member RelationshipSpecialtyStart DateEnd Date Michael Martinez MD [address] [place] [address] PCP - GeneralFamily Xqmemjip35/21/24 Lachelle Caba PA [address] [place] [address] Referring PhysicianPhysical Medicine and Rehabilitation07/02/23 Marialuisa Cee MD [address] [place] [address] Referring PhysicianFamily Zfbrmiso20/23/24Team MemberRelationshipSpecialtyStart DateEnd Date Michael Martinez MD [address] [place] [address] PCP - GeneralFamily Miidaruq86/21/24 Lachelle Caba PA [address] [place] [address] Referring PhysicianPhysical Medicine and Rehabilitation07/02/23 Marialuisa Cee MD [address] [place] [address] Referring PhysicianFamily Lvppovvr20/23/24Team MemberRelationshipSpecialtyStart DateEnd Date Lachelle Caba PA [address] [place] [address] Referring PhysicianPhysical Medicine and Rehabilitation07/02/23Te Member RelationshipSpecialtyStart DateEnd Lachelle Caba PA [address] [place] [address] Referring PhysicianPhysical Medicine and Rehabilitation07/02/23Te Member RelationshipSpecialtyStart DateEnd Michael Martinez MD [address] [place] [address] PCP - GeneralFamily Mpktccuk62/21/24 Lachelle Caba PA [address] [place] [address] Referring PhysicianPhysical Medicine and Rehabilitation07/02/23 Marialuisa Cee MD [address] [place] [address] Referring PhysicianFamily Aamdcsvt70/23/24Te MemberRelationshipSpecialtyStart End Michael Martinez MD [address] [place] [address] PCP - GeneralFamily Kvzhojzv46/21/24 Lachelle Caba PA [address] [place] [address] Referring PhysicianPhysical Medicine and Rehabilitation07/02/23 Marialuisa Cee MD [address] [place] [address] Referring PhysicianFamily Fukorvpi88/23/24Te MemberRelationshipSpecialtyStart DateEnd Michael Martinez MD [address] [place] [address] PCP - GeneralFamily Rwmdbudy92/21/24 Lachelle Caba PA [address] [place] [address] Referring PhysicianPhysical Medicine and Rehabilitation07/02/23 Marialuisa Cee MD [address] [place] [address] Referring Physicianmily Vtzmcebk39/23/24Team MemberRelationshipSpecialtyStart DateEnd Michael Martinez MD [address] [place] [address] PCP - GeneralFamily Oajghemj73/21/24 Lachelle Caba PA [address] [place] [address] Referring PhysicianPhysical Medicine and Rehabilitation07/02/23 Marialuisa Cee MD [address] [place] [address] Referring Physicianmily Naruebqo69/23/24Te MemberRelationshipSpecialtyStart DateEnd Date Michael Martinez MD [address] [place] [address] PCP - GeneralFamily Ullupxjc93/21/24 Lachelle Caba PA [address] [place] [address] Referring PhysicianPhysical Medicine and Rehabilitation07/02/23 Marialuisa Cee MD [address] [place] [address] Referring PhysicianFamily Yjrjibef27/23/24 Anila Victoria PA [address] [id number] Physician AssistantNeurology02/09/25Team MemberRelationshipSpecialtyStart DateEnd Date Michael Martinez MD [address] [place], [place] [address] PCP - GeneralFamily Mktptcba76/21/24 Lachelle Caba PA [address], [place] [phone] Referring PhysicianPhysical Medicine and Rehabilitation07/02/23 Marialuisa Cee MD [address] [place], [place] [id number] Referring PhysicianFamily Mnnbmnqe22/23/24 Anila Victoria PA [address] [address] Physician AssistantNeurology02/09/25 Reason for Visit (unrecogniz ed section and content) ReasonCommentsSeizuresTremorsReasonCommentsGait ProblemSeizuresTremorsReason CommentspolyneuropathyTremorsSeizuresReasonCommentsPainReasonComments polyneuropathySeizuresReasonCommentsSeizurespolyneuropathy FOR RECORDS PERTAINING TO PATIENTS WHO ARE [...] BE BASED ON THE PRIMARY CLINICAL RECORDS. [facility]. provides no warranty or guarantee of the accuracy or completeness of information in this document.
--- OUTSIDE RECORDS SUMMARY | 2025-08-12 12:55 | XMS_ITS | Clinical Summary ---
Author Organization [facility] Address [address] [facility] [place] [address] Care Team Providers Care Hourly Associate Name Role Phone Senthil Caba Unavailable Marialuisa Cee MD Unavailable [phone] Clem Martinez MD Primary Care Provider [phone] Anila Victoria Unavailable Allergies Active AllergyReactionsCriticalityNoted DateCommentsLatexOther,TjvbHuh6408/25/2022 NuvbzoGhqyxae80/04/2022enicillinsGI intolerance,Rash,QhlfxuxBan97/06/2018 VgurxyekskpjwLajlomu93/11/2023 Medications MedicationSigDispense QuantityRefillsLast FilledStart DateEnd DateStatus Calcium Carbonate Antacid (CALCIUM CARBONATE PO) Take 1 capsule by mouth in the morning.Active calcium 200 MG tablet CalciumActive omega-3 (FISH OIL) 300 MG capsule Fish OilActive tiZANidine (Zanaflex) 4 MG tablet every 12 (twelve) hours.06/18/2023ctive traZODone (Desyrel) 50 MG tablet 1 (one) time each day at the same time.Active metoprolol succinate XL (Toprol-XL) 25 MG 24 hr tablet 1 (one) time each day at the same time.Active famotidine (Pepcid) 40 MG tablet take 1 tablet by mouth at bedtime Oral for 90Active cyanocobalamin (Vitamin B-12) 1000 MCG tablet Take 1,000 mcg by mouth in the morning.Active clopidogrel (Plavix) 75 MG tablet 1 (one) time each day at the same time.Active Glucose Blood (Blood Glucose Test) strip 1 Strip Used Once daily to check sugar for 90 days06/18/2023ctive Lancets (OneTouch Delica Plus Gcuwfx40B) [facility] use 1 LANCET to TEST BLOOD SUGAR once daily06/18/2023ctive metoprolol tartrate (Lopressor) 25 MG tablet Take 25 mg by mouth in the morning and 25 mg before bedtime.09/25/2024ctive gabapentin (Neurontin) 100 MG capsule Indications:PolyneuropathyTake 2 capsules (200 mg) by mouth in the morning and 2 capsules (200 mg) before bedtime. Due 03/29/25. 360 capsule 5Active levETIRAcetam (Keppra) 1000 MG tablet Indications:Seizure (HCC)Take 1 tablet (1,000 mg) by mouth in the morning and 1 tablet (1,000 mg) before bedtime. 180 tablet 5Active levETIRAcetam (Keppra) 250 MG tablet Indications:Seizure (HCC)Take 1 tablet (250 mg) by mouth in the morning and 1 tablet (250 mg) before bedtime. In addition [id number] BID. 180 tablet 5Active lamoTRIgine (LaMICtal) 25 MG tablet Indications:Seizure (HCC)3 tabs PO BID 540 tablet 5Active escitalopram (Lexapro) 20 MG tablet Indications:Anxiety and depressionTake 1 tablet (20 mg) by mouth Daily 60 tablet 5Active Active Problems ProblemNoted DateDiagnosed EejaLncwgjv82/30/2024 Overview (07/21/2024): He is taking keppra, previously [...] He denies seizures since January 2023. Sensory ohazmo4307/21/2024 Overview (07/21/2024): He did suffer a fall [...] did not complete PT and was in [facility]. MOCA 01/10/2023 is 28/30. He has not yet had repeat MRI brain as ordered and we will resubmit to assess abnormality noted in January 2023. Zlvacprxqed59/30/0560Ejtcpk08/30/2024 Overview (07/21/2024): He has tremors of the extremities that started around 20 years ago that persist. He has been on primidone 50mg 1/2-1 tab PO QHS in the past. He takes Zanaflex for muscle spasms and has improved symptoms with this. He is on gabapentin which can also help with symptoms. At baseline. Lumbar azioguenwybfu66/30/2024 Overview (07/21/2024): MRI of the lumbar spine [...] 600mg PO QHS and has had some b enefit and is tolerating. His symptoms, however, persist. Closed head dacfmn6907/21/2024 Overview (07/21/2024): Patient with hospital stay 06/2019 after tripping over a dog bed resulting in bilateral subdural hematomas and a closed C5 fracture. He was transferred to [facility] and was managed conservatively by neurosurgery. He continues to use a scooter. Ghoonelofjwqth59/30/2024 Overview (07/21/2024): Continues with symptoms but lessened with current medications. He is wheelchair bound due to his neuropathic symptoms and sensory deficits. Seizure dsqqxwna43/30/2024Insomnia, euoerkenqcz00/30/2024 Overview (07/21/2024): A PSG was discussed as he is not sleeping well. This was done 10 years ago and is sounds like he had ROMINA and did not treat this. He does not have a good sleep environment as he leaves the TV on. Patient is on trazodone. Family History Medical HistoryRelationNameCommentsMental illnessFatheranger issuesFather RelationNameStatusCommentsFather Social History Tobacco UseTypesPacks/DayYears UsedDateSmoking Tobacco: FormerCigarettes Tobacco Cessation:Counseling Given: Not Answered Alcohol UseStandard Drinks/WeekCommentsNot Currently0 (1 standard drink = 0.6 oz pure alcohol)caffeine intake: more than 4 cups per day.Sex and Gender InformationValueDate RecordedSex Assigned at BirthNot on fileLegal SexMale 01/03/2023 7:05 PM EDTGender IdentityNot on fileSexual OrientationNot on file Last Filed Vital Signs Vital SignReadingTime TakenCommentsBlood Jnjmkbra630/7805 10:52 AM EDT Xouag8076 10:52 AM EDTTemperature--Respiratory Rate--Oxygen Saturation 99%03/12/2025 10:52 AM EDTInhaled Oxygen Concentration--Ojvnag60.7 kg (178 lb) 03/12/2025 10:52 AM JFBVzugrp083.3 cm (5' 11 )03/12/2025 10:52 AM EDTBody Mass Index24.8303/12/2025 10:52 AM EDT Plan of Treatment Not on file Insurance * Guarantor: Clem Triplett AAccount TypeRelation to PatientDate of BirthPhone Billing AddressPersonal/WoeqgeBimd1960 [address] [facility] [place] [address] Care Teams Team MemberRelationshipSpecialtyStart DateEnd Clem Martinez MD [address] [place], [place] [phone] PCP - GeneralFamily Nhgyxlha51/21/24 Senthil Caba PA [address] [place], [place] [address] Referring PhysicianPhysical Medicine and Rehabilitation07/02/23 Marialuisa Cee MD [address] [place], [place] [address] Referring PhysicianFamily Nnhtbtrs74/23/24 Anila Victoria PA [address] [facility] [address] [place] [address] Physician AssistantNeurology02/09/25
--- NOTE | 2025-08-12 13:00 | CA_ITS ---
[facility] Test Date: 2025-08-12 Pat Name: MICHAEL CHEN Department: Room: - Gender: Male [employer] Worker: CARMEN BARAJAS : 1960 Requested By: BAM FAY Order Number: [id number] Reading MD: PAUL MONTGOMERY M.D. Interpretive Statements Summary of the findings: Right leg: DELIA= 0.63; TBI= 0.38. Doppler waveforms demonstrate monophasic flow at the posterior tibial and dorsalis pedis arteries. Left leg: DELIA= 0.92; TBI= 0.34. Doppler waveforms demonstrate monophasic flow at the posterior tibial and dorsalis pedis arteries. Segmental pressures: Segmental pressures show bilateral significant inflow and infrapopliteal disease and calcified left femoropopliteal segment. Pulse volume recordings: PVRs at the high thigh, below knee, and ankle levels show dapmened waveforms. Conclusion: Right and left ankle-brachial indices are suggestive of reduced right and normal left overall arterial flow at rest. Toe-brachial indices are suggestive of PAD. Segmental pressures show bilateral significant inflow and infrapopliteal disease and calcified left femoropopliteal segment. Pulse volume recordings indicate reduced overall bilateral resting arterial flow. The study shows evidence of PAD with reduced overall arterial flow at rest. Electronically Signed On 08-13-2025 19:31:25 EDT by PAUL MONTGOMERY M.D.
== END 2025-08-12 12:51 | disposition home or self-care (01) ==
LOC: CARD 12:50
PROVIDERS: Visit Provider Podiatrist Foot & Ankle Surgery
DX: R09.89 Other specified symptoms and signs involving the circulatory and respiratory systems (principal)
CPT/HCPCS: 93923; 93925